=== PATIENT | male | born 1955 | race American Indian/Alaskan Native ===

== ENCOUNTER 2017-01-26 19:39 | Inpatient (IN) | payer MEDICAID ==
[2017-01-26 19:39] VITALS: BMI 25.2
--- NOTE | 2017-01-26 20:51 | C.PDOC ---
History Of Present Illness 61 year old male presents to the ED stating he is hungry and wants to avoid the snow. He admits he has been drinking for the past few days and has no physical complaints at this time. Chief Complaint (Nursing): Medical Clearance History Per: Patient History/Exam Limitations: no limitations Onset/Duration Of Symptoms: Hrs Current Symptoms Are (Timing): Still Present Severity: Mild Past Medical History Reviewed: Historical Data, Nursing Documentation, Vital Signs Vital Signs: Last Vital Signs Temp 97.6 F 01/27/17 03:56 Pulse 92 H 01/27/17 03:56 Resp 18 01/27/17 03:56 BP 106/64 01/27/17 03:56 Pulse Ox 98 01/27/17 03:56 - Medical History PMH: Depression, HTN - [facility] Procedures ALCOHOL DETOXIFICATION (07/07/15) DETOXIFICATION SERVICES FOR SUBSTANCE ABUSE TREATMENT (07/23/16) GROUP SPACE PHYSICIST FOR SUBSTANCE ABUSE TREATMENT, PSYCHOEDUCATION (03/17/16) INJECT/INFUSE NEC (04/27/14) MEASUREMENT OF ARTERIAL PRESSURE, PERIPHERAL, PERC APPROACH (03/17/16) MEASUREMENT OF CARDIAC RHYTHM, PERCUTANEOUS APPROACH (03/17/16) ULTRASONOGRAPHY OF RIGHT AND LEFT HEART, TRANSESOPHAGEAL (03/17/16) Family History: States: Unknown Family Hx - Social History Hx Tobacco Use: No Hx Alcohol Use: Yes Hx Substance Use: No (Alcoholism) - Immunization History Hx Tetanus Toxoid Vaccination: Yes Hx Influenza Vaccination: No (unknown) Hx Pneumococcal Vaccination: No (unknown) Review Of Systems Except As Marked, All Systems Reviewed And Found Negative. Constitutional: Negative for: Fever, Chills Cardiovascular: Negative for: Chest Pain Respiratory: Negative for: Shortness of Breath Physical Exam - Physical Exam Appears: Non-toxic, No Acute Distress, Other (No signs of injury) Skin: Normal Color, Warm, Dry Head: Atraumatic, Normacephalic Eye(s): bilateral: Normal Inspection Oral Mucosa: Moist Neck: Supple Chest: Symmetrical Respiratory: No Accessory Muscle Use Extremity: Normal ROM, No Deformity Neurological/Psych: Oriented x3, Other (+Intoxicated) ED Course And Treatment - Laboratory Results Result Diagrams: 01/26/17 20:55 01/26/17 20:55 Progress Note: Blood work and Urinalysis ordered and reviewed. Patient spoke to crisis care aid and states he is suicidal. Patient placed on 1:1. Disposition Discussed With : Norma Diaz Doctor Will See Patient In The: Hospital Counseled Patient/Family Regarding: Diagnosis - Disposition Disposition: HOSPITALIZED Disposition Time: 06:26 Condition: STABLE - POA Present On Arrival: None - Clinical Impression Clinical Impression: Major depression, Alcohol use disorder - Scribe Statement The provider has reviewed the documentation as recorded by the Scribe Kelechi Estrada. Provider Attestation: All medical record entries made by the Danishibe were at my direction and personally dictated by me. I have reviewed the chart and agree that the record accurately reflects my personal performance of the history, physical exam, medical decision making, and the department course for this patient. I have also personally directed, reviewed, and agree with the discharge instructions and disposition.
[2017-01-26 21:02] LABS: BASO # 0.1 K/uL (0.0-0.2); BASO % 1.2 % (0.0-2.0); EOS % 0.7 % (0.0-4.0); LYMPH # 1.5 K/uL (1.0-4.3); LYMPH % 25.7 % (20.0-40.0); MEAN CELL VOLUME 98.8 fL (80.0-94.0); MEAN CORPUSCULAR HEMOGLOBIN 32.6 pg (27.0-31.0); MEAN PLATELET VOLUME 6.6 fL (7.2-11.7); MONO # 0.4 K/uL (0.0-0.8); MONO % 7.1 % (0.0-10.0); NRBC % 0.1 % (0.0-2.0); RED CELL DISTRIBUTION WIDTH 15.8 % (11.5-14.5); WHITE BLOOD COUNT 5.9 K/uL (4.8-10.8)
[2017-01-26 21:12] LABS: CHLORIDE 99 mmol/L (98-107)
[2017-01-26 21:13] LABS: POTASSIUM 3.7 mmol/L (3.6-5.2); SODIUM 142 mmol/L (132-148)
[2017-01-26 21:15] LABS: BILIRUBIN,TOTAL 0.2 mg/dL (0.2-1.3); CARBON DIOXIDE 23 mmol/L (22-30); GFR AFRICAN-AMERICAN > 60
[2017-01-26 21:16] LABS: ALKALINE PHOSPHATASE 83 U/L (38-126); ALT/SGPT 25 U/L (21-72); AST/SGOT 40 U/L (17-59); BLOOD UREA NITROGEN 23 mg/dL (9-20); CALCIUM 8.3 mg/dl (8.6-10.4); GLUCOSE,RANDOM 111 mg/dL (75-110); TOTAL PROTEIN 7.7 g/dL (6.3-8.3)
[2017-01-26 21:36] LABS: ALCOHOL SERUM 327 mg/dl (0-10)
[2017-01-27 05:39] LABS: URINE BILIRUBIN NEGATIVE (NEGATIVE); URINE BLOOD 1+ (NEGATIVE); URINE COLOR Yellow (YELLOW); URINE GLUCOSE (UA) NORMAL (Normal); URINE KETONE NEGATIVE (NEGATIVE); URINE LEUKOCYTE ESTERASE NEG Leu/uL (Negative); URINE PROTEIN NEGATIVE (NEGATIVE); URINE UROBILINOGEN NORMAL mg/dL (0.2-1.0); WBC URINE 1 /hpf (0-5)
[2017-01-27 06:40] VITALS: O2SAT 96
[2017-01-27 07:43] LABS: RBC URINE 5 /hpf (0-3)
--- NOTE | 2017-01-27 11:27 | PCM.PSYCH ---
Initial Psychiatric Evaluation - Initial Psychiatric Evaluation Type of Admission: Voluntary Legal Status: Capacity Chief Complaint (in patient's own words): I was feeling depressed and suicidal History of Present Illness and Precipitating Events: This is a 61 years old -Dominican male who is a currently homeless and unemployed, came to the hospital because of drinking, depressed mood and suicidal ideation. Patient reports a long history of depression and alcohol abuse. Patient reports that soon after discharge from the [facility] 1 month ago, he stopped taking medications and relapsed on drinking. Patient reports of drinking 3-4 points on a daily basis. Yesterday he consumed almost 4 pints of vodka, became increasingly depressed and developed suicidal ideation, so came to the hospital to get help. Patient reports of depressed, and irritable mood. Reports feelings of hopelessness and helplessness and poor appetite. He reports withdrawal symptoms from drinking including tremors, sweating, anxiety and headaches. However he denies any auditory hallucinations, visual hallucinations or any delusions. He denies any other substance abuse. Past medical history HTN Current Medications: Active Medications Generic Name Dose Route Start Last Admin Trade Name Freq PRN Reason Stop Dose Admin Chlordiazepoxide 25 mg 01/27/17 06:53 Librium PO Q6 PRN WITHDRAWAL Chlordiazepoxide 25 mg 01/27/17 12:00 Librium PO 01/31/17 11:59 Q6 KOKO Taper Influenza Virus Vaccine 45 mcg 01/29/17 10:00 Afluria IM 01/29/17 10:01 .ONCE ONE Trazodone HCl 50 mg 01/27/17 06:53 Desyrel PO HS PRN Sleep Past Psychiatric History - Past Psychiatric History Previous Treatment History: Inpatient Pertinent Medical Hx (Current Medical&Sleep Prob, Allergies): Allergies Allergy/AdvReac Type Severity Reaction Status Date / Time No Known Allergies Allergy Verified 01/26/17 19:42 Citalopram [celeXA] 10 mg PO DAILY #14 tab 01/09/17 Folic Acid 1 mg PO DAILY #14 tab 01/09/17 Multivitamin Therapeutic Tab [Thera Tab] 1 tab PO DAILY #14 tab 01/09/17 Thiamine [Vitamin B1 Tab] 100 mg PO DAILY #14 tab 01/09/17 amLODIPine [Norvasc] 10 mg PO DAILY #7 tab 01/09/17 Review of Systems - Review of Systems All systems: reviewed and no additional remarkable complaints except - Psychiatric Psychiatric: Anxiety, Irritability, Suicidal Ideation. absent: Auditory Hallucinations, Homicidal Ideation, Mood Swings, Visual Hallucinations Mental Status Examination - Personal Presentation Personal Presentation: Looks stated age - Affect Affect: Constricted, Depressed - Motor Activity Motor Activity: Psychomotor Retardation - Reliability in Providing Information Reliability in Providing Information: Poor, due to altered mood - Speech Speech: Organized - Mood Mood: Depressed, Anxious - Formal Thought Process Formal Thought Process: No Impairment - Obsessions/Compulsions Obsessions: No Compulsions: No - Cognitive Functions Orientation: Person, Place, Situation, Time Sensorium: Alert Attention/Concentration: Attentive Abstract Thinking: [place] Estimate of Intelligence: Below average Judgement: Imparied, as evidence by: Poor judgement, Imparied, as evidence by: Lack of insight into illness - Risk Risk: Suicidal, Withdrawal, Diminished functioning - Strength & Assets Inventory Strength & Assets Inventory: Cooperative - Limitations Limitations: Living alone DSM 5 DX - DSM 5 DSM 5 Diagnosis: Major depressive disorder recurrent severe without psychotic features Alcohol use disorder severe Alcohol withdrawal - Recommended/Plan of Treatment Treatment Recommendations and Plan of Treatment: Major depressive disorder recurrent severe without psychotic features CBT Psychoeducation Supportive therapy, individual therapy Start Celexa 10 mg PO daily Start Trazodone 50 mg PO Q HS Alcohol use disorder severe CBT Psychoeducation Supportive therapy, individual therapy Use [place] for abstinence Alcohol withdrawal uncomplicated CBT Psychoeducation Supportive therapy, individual therapy Librium when necessary Start Librium taper Start folic acid/thiamine/multivitamin HTN Continue prescribed medications Monitor signs and symptoms - Smoking Cessation Smoking Cessation Initiated: No
[2017-01-28] MEDS: Multiple Vitamins Tab PO SCH (11:13)
--- NOTE | 2017-01-28 15:37 | PCM.PYCHPN ---
Psychiatric Progress Note - Psychiatric Progress Note Patient seen today, length of contact: 17 min Patient Chief Complaint: I was feeling depressed and suicidal Problems Identified/Issues Discussed: Pt seen and evaluated, and discussed with the staff. Pt remained isolated, depressed and withdrawn. He still reports depressed mood and at times feelings of hopelessness and helplessness. He denies any auditory or visual hallucinations. He still reports withdrawal symptoms from alcohol. He is taking medications and denies any side effects. Supportive therapy and psychoeducation was given. Medication Change: Yes (librium taper) Medical Record Reviewed: Yes Mental Status Examination - Cognitive Function Orientation: Person, Place, Situation, Time Memory: Intact Attention: WNL Concentration: Poor Association: WNL Fund of Knowledge: Poor - Mood Mood: Depressed, Anxious - Affect Affect: Constricted, Depressed - Speech Speech: Soft - Formal Thought Process Formal Thought Process: No Impairment - Suicidal Ideation Suicidal Ideation: No - Homicidal Ideation Homicidal Ideation: No Goal/Treatment Plan - Goal/Treatment Plan Need for Continued Stay: Discharge may exacerbated symptoms, Severe functional impairment Progress Toward Problem(s) and Goals/Treatment Plan: Major depressive disorder recurrent severe without psychotic features CBT Psychoeducation Supportive therapy, individual therapy Celexa 10 mg PO daily Trazodone 50 mg PO Q HS Alcohol use disorder severe CBT Psychoeducation Supportive therapy, individual therapy Use [place] for abstinence Alcohol withdrawal uncomplicated CBT Psychoeducation Supportive therapy, individual therapy Librium when necessary Librium taper folic acid/thiamine/multivitamin HTN Continue prescribed medications Monitor signs and symptoms - Smoking Cessation Smoking Cessation Initiated: No
[2017-01-28] MEDS ORDERED: Magnesium Hydroxide Susp 30 ml UD PO PRN (17:19)
[2017-01-28] MEDS ORDERED: Magnesium Hydroxide Susp 30 ml UD PO ONE (17:27)
[2017-01-29] MEDS ORDERED: Influenza Virus Vaccine 45 mcg/0.5 ml Syr IM ONE (10:00)
[2017-01-29] MEDS ORDERED: Pneumococcal 23-Valent Vaccine IM ONE (10:15)
[2017-01-29] MEDS: Multiple Vitamins Tab PO SCH (10:27)
--- NOTE | 2017-01-29 11:01 | PCM.PYCHPN ---
Psychiatric Progress Note - Psychiatric Progress Note Patient seen today, length of contact: 18 min Patient Chief Complaint: my belly is hurting Problems Identified/Issues Discussed: Pt seen and evaluated, and discussed with the staff. As per the staff pt started complaining of abdominal pain. He is still shaky and still experiencing alcohol withdrawal symptoms. Pt remained isolated, depressed and withdrawn. He still reports depressed mood and at times feelings of hopelessness and helplessness. He is taking medications and denies any side effects. Medical team consulted. Supportive therapy and psychoeducation was given. Medication Change: Yes (Librium taper) Medical Record Reviewed: Yes Mental Status Examination - Cognitive Function Orientation: Person, Place, Situation, Time Memory: Intact Attention: WNL Concentration: Poor Association: WNL Fund of Knowledge: Poor - Mood Mood: Depressed, Anxious - Affect Affect: Constricted, Depressed - Speech Speech: Soft - Formal Thought Process Formal Thought Process: No Impairment - Suicidal Ideation Suicidal Ideation: No - Homicidal Ideation Homicidal Ideation: No Goal/Treatment Plan - Goal/Treatment Plan Need for Continued Stay: Discharge may exacerbated symptoms, Severe functional impairment Progress Toward Problem(s) and Goals/Treatment Plan: Major depressive disorder recurrent severe without psychotic features CBT Psychoeducation Supportive therapy, individual therapy Celexa 10 mg PO daily Trazodone 50 mg PO Q HS Alcohol use disorder severe CBT Psychoeducation Supportive therapy, individual therapy Use [place] for abstinence Alcohol withdrawal uncomplicated CBT Psychoeducation Supportive therapy, individual therapy Librium when necessary Librium taper folic acid/thiamine/multivitamin HTN Continue prescribed medications Monitor signs and symptoms - Smoking Cessation Smoking Cessation Initiated: No
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
[2017-01-30] MEDS ORDERED: Lactated Ringer's 1,000 ML IV SCH (07:15)
[2017-01-30 07:37] LABS: BASO % 0.6 % (0.0-2.0); CHLORIDE 98 mmol/L (98-107); EOS # 0.1 K/uL (0.0-0.7); EOS % 2.4 % (0.0-4.0); HEMATOCRIT 32.8 % (35.0-51.0); LYMPH # 1.4 K/uL (1.0-4.3); LYMPH % 22.8 % (20.0-40.0); MEAN CELL VOLUME 97.9 fL (80.0-94.0); MEAN CORPUSCULAR HEMOGLOBIN 32.8 pg (27.0-31.0); MEAN CORPUSCULAR HGB CONC 33.5 g/dL (33.0-37.0); MEAN PLATELET VOLUME 7.2 fL (7.2-11.7); MONO # 0.5 K/uL (0.0-0.8); MONO % 8.7 % (0.0-10.0); RED CELL DISTRIBUTION WIDTH 15.1 % (11.5-14.5); SODIUM 137 mmol/L (132-148)
[2017-01-30 07:39] LABS: GFR AFRICAN-AMERICAN > 60
[2017-01-30 07:40] LABS: ALB/GLOB RATIO 0.9 (1.0-2.1); ALKALINE PHOSPHATASE 80 U/L (38-126); ALT/SGPT 37 U/L (21-72); AST/SGOT 59 U/L (17-59); BILIRUBIN,TOTAL 0.5 mg/dL (0.2-1.3); BLOOD UREA NITROGEN 20 mg/dL (9-20); CALCIUM 8.2 mg/dl (8.6-10.4); CARBON DIOXIDE 24 mmol/L (22-30); GLUCOSE,RANDOM 152 mg/dL (75-110); TOTAL PROTEIN 7.4 g/dL (6.3-8.3)
--- NOTE | 2017-01-30 08:52 | US ---
HISTORY: epigastric and RUQ abdominal pain COMPARISON: None. TECHNIQUE: Sonographic evaluation of the abdomen. FINDINGS: LIVER: Measures 16.3 cm in sagittal dimension. Echogenic liver may be seen in setting of hepatic parenchymal disease or fatty infiltration. No focal hepatic mass identified. The main portal vein appears patent with normal directional flow. No intrahepatic bile duct dilatation. GALLBLADDER: No gallstones. No gallbladder wall thickening. Negative sonographic Patrick's sign as assessed by the sole tier. COMMON BILE DUCT: Measures 3 mm. PANCREAS: Not well visualized. RIGHT KIDNEY: Measures 10.4 x 3.9 x 3.9 cm. 0.8 x 0.5 x 0.7 cm anechoic avascular focus consistent with cyst. No obstructing calculus or hydronephrosis identified. LEFT KIDNEY: Measures 10.5 x 5.7 x 4.5 cm. No obstructing calculus or hydronephrosis identified. SPLEEN: Measures approximately 8.6 cm. AORTA: Limited views appear unremarkable. IVC: Limited views appear unremarkable. OTHER FINDINGS: None. IMPRESSION: Echogenic liver may be seen in setting of hepatic parenchymal disease or fatty infiltration. Small right renal cyst.
--- NOTE | 2017-01-30 09:58 | CP.PCM.PN ---
Subjective - Date & Time of Evaluation Date of Evaluation: 01/30/17 Time of Evaluation: 09:51 - Subjective Subjective: PGY-1 note for General Surgery Pt S&E. SAL. Pt reports abdominal pain "much improved" from yesterday. He rates it as a 1-2/10 on the pain severity scale, and feels slight pain only when he presses in on the area. He reports sleeping well, tolerating diet without pain, and moving his bowels this AM. He denies N/V/D/F/C. Objective - Vital Signs/Intake and Output Vital Signs (last 24 hours): Temp Pulse Resp BP Pulse Ox 97.8 F 67 20 142/81 96 01/30/17 08:53 01/30/17 08:53 01/30/17 08:53 01/30/17 08:53 01/27/17 06:36 - Medications Medications: Current Medications Amlodipine Besylate (Norvasc) 10 mg PO DAILY [facility] Last Admin: 01/29/17 10:27 Dose: 10 mg Chlordiazepoxide (Librium) 25 mg PO Q6 PRN PRN Reason: WITHDRAWAL Last Admin: 01/28/17 11:13 Dose: 25 mg Chlordiazepoxide (Librium) 25 mg PO BID [facility] PRN Reason: Taper Stop: 01/31/17 11:59 Last Admin: 01/29/17 17:26 Dose: 25 mg Citalopram Hydrobromide (Celexa) 10 mg PO DAILY [facility] Last Admin: 01/29/17 10:26 Dose: 10 mg Clonidine HCl (Catapres) 0.1 mg PO Q4H PRN PRN Reason: Symptoms of alcohol withdrawl Famotidine (Pepcid) 20 mg PO BID [facility] Last Admin: 01/29/17 23:17 Dose: 20 mg Folic Acid (Folic Acid) 1 mg PO DAILY [facility] Last Admin: 01/29/17 10:26 Dose: 1 mg Multivitamins (Hexavitamin) 1 tab PO DAILY [facility] Last Admin: 01/29/17 10:27 Dose: 1 tab Thiamine HCl (Vitamin B1 Tab) 100 mg PO DAILY [facility] Last Admin: 01/29/17 10:26 Dose: 100 mg Trazodone HCl (Desyrel) 50 mg PO HS PRN PRN Reason: Sleep - Labs Labs: 01/30/17 07:16 01/30/17 07:16 - Constitutional Appears: Non-toxic, No Acute Distress - Head Exam Head Exam: ATRAUMATIC, NORMAL INSPECTION, NORMOCEPHALIC - Eye Exam Eye Exam: EOMI Pupil Exam: PERRL - ENT Exam ENT Exam: Mucous Membranes Moist - Respiratory Exam Respiratory Exam: NORMAL BREATHING PATTERN - Cardiovascular Exam Cardiovascular Exam: REGULAR RHYTHM, +S1, +S2 - GI/Abdominal Exam GI & Abdominal Exam: Soft, Tenderness (slight RUQ with palpation, negative russell sign), Normal Bowel Sounds. absent: Distended, Firm, Guarding - Neurological Exam Neurological Exam: Alert, Oriented x3 - Psychiatric Exam Psychiatric exam: Normal Affect, Normal Mood - Skin Skin Exam: Dry, Normal Color, Warm Assessment and Plan - Assessment and Plan (Free Text) Assessment: 61yo male with improved RUQ/epigastric abdominal pain Plan: Lipase level WNL this AM Abd US showed no gallstones no acute surgical intervention at this time Surgical team will sign off d/w Dr. Wero Frank PGY1
[2017-01-30] MEDS: Multiple Vitamins Tab PO SCH (10:35)
--- NOTE | 2017-01-30 18:25 | PCM.PYCHPN ---
Psychiatric Progress Note - Psychiatric Progress Note Patient seen today, length of contact: 16 min Patient Chief Complaint: I was feeling depressed' Problems Identified/Issues Discussed: Pt seen and evaluated, and discussed with the staff. Pt remained isolated, withdrawn and depressed. He still reports depressed mood and at times feelings of hopelessness and helplessness. He denies any auditory or visual hallucinations. He still reports withdrawal symptoms from alcohol. He is seen by medical team for abdominal pain. He is taking medications and denies any side effects. Supportive therapy and psychoeducation was given. Medication Change: Yes (increase celexa) Medical Record Reviewed: Yes Mental Status Examination - Cognitive Function Orientation: Person, Place, Situation, Time Memory: Intact Attention: WNL Concentration: Poor Association: WNL Fund of Knowledge: Poor - Mood Mood: Depressed, Anxious - Affect Affect: Constricted, Depressed - Speech Speech: Soft - Formal Thought Process Formal Thought Process: No Impairment - Suicidal Ideation Suicidal Ideation: No - Homicidal Ideation Homicidal Ideation: No Goal/Treatment Plan - Goal/Treatment Plan Need for Continued Stay: Discharge may exacerbated symptoms, Severe functional impairment Progress Toward Problem(s) and Goals/Treatment Plan: Major depressive disorder recurrent severe without psychotic features CBT Psychoeducation Supportive therapy, individual therapy Increase Celexa to 20 mg PO daily Trazodone 50 mg PO Q HS Alcohol use disorder severe CBT Psychoeducation Supportive therapy, individual therapy Use [place] for abstinence Alcohol withdrawal uncomplicated CBT Psychoeducation Supportive therapy, individual therapy Librium when necessary Librium taper Folic acid/thiamine/multivitamin HTN Continue prescribed medications Monitor signs and symptoms - Smoking Cessation Smoking Cessation Initiated: No
[2017-01-31] MEDS: Multiple Vitamins Tab PO SCH (10:28)
--- NOTE | 2017-01-31 16:50 | PCM.PYCHPN ---
Psychiatric Progress Note - Psychiatric Progress Note Patient seen today, length of contact: 15 minutes Patient Chief Complaint: I still feeling depressed Problems Identified/Issues Discussed: Patient seen. Chart reviewed. Case discussed with the staff. Issues related to illness and treatment were discussed with the patient. Patient reported still feeling depressed. Asking for help to find a place to live after discharge. Patient will speak to mental health social worker on Thursday to find a place or long-term where patient can stay after discharge from the hospital. At the time of evaluation, patient was awake alert oriented 3, had no delusions, no auditory or visual hallucinations, no suicidal ideations or homicidal ideations. Medical Problems: Gastritis Diagnostic Results: Reviewed DSM 5 Symptoms Update: Improvement with treatment Medication Change: No Medical Record Reviewed: Yes Mental Status Examination - Cognitive Function Orientation: Person, Place, Situation, Time Memory: Intact Attention: WNL Concentration: WNL Association: WNL Fund of Knowledge: [facility] Decription of patient's judgement and insights: Fair - Mood Mood: Depressed - Affect Affect: Depressed - Speech Speech: Soft - Formal Thought Process Formal Thought Process: No Impairment Psychotic Thoughts and Behaviors: None - Suicidal Ideation Suicidal Ideation: No - Homicidal Ideation Homicidal Ideation: No Goal/Treatment Plan - Goal/Treatment Plan Need for Continued Stay: Remain at risks for inpatient hospitalization, Discharge may exacerbated symptoms, Severe functional impairment Progress Toward Problem(s) and Goals/Treatment Plan: Some improvement with treatment Patient education Supportive therapy Continue treatment as before Patient will go to [facility] after discharge Estimated Date of D/C: 02/02/17 - Smoking Cessation Smoking Cessation Initiated: No
[2017-02-01 07:43] VITALS: BP 139/80; PULSE 71; RESP 18; TEMP 97
[2017-02-01 07:47] LABS: CHLORIDE 102 mmol/L (98-107); POTASSIUM 3.7 mmol/L (3.6-5.2); SODIUM 138 mmol/L (132-148)
[2017-02-01 07:49] LABS: ALB/GLOB RATIO 0.8 (1.0-2.1); ALKALINE PHOSPHATASE 73 U/L (38-126); AST/SGOT 63 U/L (17-59); BILIRUBIN,TOTAL 0.5 mg/dL (0.2-1.3); CARBON DIOXIDE 26 mmol/L (22-30); GFR AFRICAN-AMERICAN > 60; TOTAL PROTEIN 7.2 g/dL (6.3-8.3)
[2017-02-01 07:50] LABS: ALT/SGPT 67 U/L (21-72); BLOOD UREA NITROGEN 18 mg/dL (9-20); CALCIUM 8.3 mg/dl (8.6-10.4); GLUCOSE,RANDOM 88 mg/dL (75-110)
[2017-02-01] MEDS: Multiple Vitamins Tab PO SCH (09:11)
--- NOTE | 2017-02-01 18:46 | PCM.PYCHDC ---
Mental Status Examination - Mental Status Examination Orientation: Person, Place, Situation, Time Memory: Intact Mood: Neutral Affect: Other (Appropriate) Speech: Appropriate Attention: WNL Concentration: WNL Association: WNL Fund of Knowledge: WNL Formal Thought Process: No Impairment Description of patient's judgement and insight: Fair Psychotic Thoughts and Behaviors: None Suicidal Ideation: No Current Homicidal Ideation?: No Discharge Summary - Discharge Note Reason for Hospitalization: Alcohol use and depression Psychiatric History (includes Medical, Family, Personal Hx): Alcohol use disorder, major depressive disorder, hypertension Laboratory Data: Abnormal Lab Results 02/01/17 07:31 Sodium 138 Potassium 3.7 Chloride 102 Carbon Dioxide 26 Anion Gap 14 BUN 18 Creatinine 1.1 Est GFR ( Amer) > 60 Est GFR (Non-Af Amer) > 60 Random Glucose 88 Calcium 8.3 L Total Bilirubin 0.5 AST 63 H ALT 67 Alkaline Phosphatase 73 Total Protein 7.2 Albumin 3.2 L Globulin 4.0 H Albumin/Globulin Ratio 0.8 L Consultations:: List each consultation separately and include: 1. Reason for request. 2. Findings. 3. Follow-up Consultations: Reviewed Summary of Hospital Course include:: 1. Description of specific treatment plan utilized for patients during their course of treatmen. 2. Summarize the time- course for resolution of acute symptoms and/or regressed behaviors. 3. Describe issues identified and worked on during hospitalization. 4. Describe medication utilized. 5. Describe medical problems identified and treated. 6. Reassessment of suicide risk Summary of Hospital Course: This is a 61 years old -[place] male who is a currently homeless and unemployed, came to the hospital because of drinking, depressed mood and suicidal ideation. Patient reports a long history of depression and alcohol abuse. Patient reports that soon after discharge from the [facility] 1 month ago, he stopped taking medications and relapsed on drinking. Patient reports of drinking 3-4 points on a daily basis. Yesterday he consumed almost 4 pints of vodka, became increasingly depressed and developed suicidal ideation, so came to the hospital to get help. Patient reports of depressed, and irritable mood. Reports feelings of hopelessness and helplessness and poor appetite. He reports withdrawal symptoms from drinking including tremors, sweating, anxiety and headaches. However he denies any auditory hallucinations, visual hallucinations or any delusions. He denies any other substance abuse. During his stay in the hospital patient was treated with Librium and other when necessary medications for alcohol withdrawal symptoms. He was also started on Celexa. During his stay he was seen by medical because of abdominal pain and started on Protonix for his gastritis which was related to alcohol drinking. With all above treatment patient started feeling better. No withdrawal symptoms. Today patient was stable and ready for discharge. At the time of evaluation and discharge, patient was awake alert oriented 3, had no delusions , no auditory or visual hallucinations, no suicidal ideations or homicidal ideations, patient was discharged in a stable condition. - Final Diagnosis (DSM 5) Condition upon Discharge: STABLE Disposition: HOME/ ROUTINE Follow-up Treatment Plan: IOP Prescriptions/Medication Reconciliation: Famotidine [Pepcid] 20 mg PO BID #60 tab Citalopram [celeXA] 20 mg PO DAILY #30 tab - Smoking Cessation Smoking Cessation Medication prescribed: No Reason for not providing: Not smoking - Antipsychotic Medications Pt discharged on 2 or more routine antipsychotic medications: No
== END 2017-02-01 14:19 | disposition home or self-care (01) | DRG 430 ==
LOC: C.ER 19:39 → C.9OBSV 21:09 → OBSVTOIN 01-27 06:27 → C.5E 01-27 06:36
PROVIDERS: ADMIT Emergency Medicine; ATTEND Psychiatry & Neurology Psychiatry
PROC: HZ2ZZZZ Detoxification Services for Substance Abuse Treatment (ICD-10-PCS; principal; 2017-01-27)
PROC: HZ52ZZZ Individual Psychotherapy for Substance Abuse Treatment, Cognitive-Behavioral (ICD-10-PCS; 2017-01-27)
PROC: HZ59ZZZ Individual Psychotherapy for Substance Abuse Treatment, Supportive (ICD-10-PCS; 2017-01-27)
PROC: HZ56ZZZ Individual Psychotherapy for Substance Abuse Treatment, Psychoeducation (ICD-10-PCS; 2017-01-27)
DX: F33.2 Major depressive disorder, recurrent severe without psychotic features (principal); R45.851 Suicidal ideations; N28.1 Cyst of kidney, acquired; F10.239 Alcohol dependence with withdrawal, unspecified; I10 Essential (primary) hypertension; Z59.0 Homelessness; Z79.899 Other long term (current) drug therapy; Z87.891 Personal history of nicotine dependence; K29.20 Alcoholic gastritis without bleeding; F41.9 Anxiety disorder, unspecified

== ENCOUNTER 2017-02-18 17:00 | Inpatient (IN) | payer MEDICAID ==
[2017-02-18 17:01] VITALS: BMI 25.2
--- NOTE | 2017-02-18 18:01 | C.PDOC ---
History Of Present Illness <Sarah Alvarado - Last Filed: 02/18/17 19:14> <Allie Ya - Last Filed: 02/19/17 05:51> Patient is a 61 year old male who presents to the ER intoxicated stating he is suicidal. Patient has a history of ETOH use and psychiatric problems. Patient Admits to using ETOH today and is not taking psychiatric medications. Currently has no suicide plans and has no other complaints at this time. (Sarah Alvarado) History Per: Patient Onset/Duration Of Symptoms: Hrs Current Symptoms Are (Timing): Still Present Modifying Factor(s): Alcohol Associated Symptoms: Suicidal Thoughts. denies: Suicidal Plan <Sarah Alvarado - Last Filed: 02/18/17 19:14> <Allie Ya - Last Filed: 02/19/17 05:51> Time Seen by Provider: 02/18/17 17:09 Chief Complaint (Nursing): Substance Abuse Past Medical History Reviewed: Historical Data, Nursing Documentation, Vital Signs - Medical History PMH: Depression, HTN Family History: States: Unknown Family Hx - Social History Hx Tobacco Use: No Hx Alcohol Use: Yes Hx Substance Use: Yes - Immunization History Hx Tetanus Toxoid Vaccination: Yes Hx Influenza Vaccination: No (unknown) Hx Pneumococcal Vaccination: No (unknown) <Sarah Alvarado - Last Filed: 02/18/17 19:14> Vital Signs: Last Vital Signs Temp Pulse 97 H 02/18/17 20:36 Resp 18 02/18/17 20:36 BP 139/79 02/18/17 20:36 Pulse Ox 98 02/18/17 20:36 - [facility] Procedures ALCOHOL DETOXIFICATION (07/07/15) DETOXIFICATION SERVICES FOR SUBSTANCE ABUSE TREATMENT (01/27/17) GROUP NANNY/HOUSEHOLD MANAGER FOR SUBSTANCE ABUSE TREATMENT, PSYCHOEDUCATION (03/17/16) INDIV PSYCHOTHERAPY FOR SUBSTANCE ABUSE TREATMENT, SUPPORT (01/27/17) INDIV PSYCHOTHERAPY FOR SUBSTANCE ABUSE, COGNITIV BEHAVIORAL (01/27/17) INDIV PSYCHOTHERAPY FOR SUBSTANCE ABUSE, PSYCHOEDUCATION (01/27/17) INJECT/INFUSE NEC (04/27/14) MEASUREMENT OF ARTERIAL PRESSURE, PERIPHERAL, PERC APPROACH (03/17/16) MEASUREMENT OF CARDIAC RHYTHM, PERCUTANEOUS APPROACH (03/17/16) ULTRASONOGRAPHY OF RIGHT AND LEFT HEART, TRANSESOPHAGEAL (03/17/16) Review Of Systems Constitutional: Negative for: Fever, Chills Cardiovascular: Negative for: Palpitations Respiratory: Negative for: Shortness of Breath Gastrointestinal: Negative for: Nausea, Vomiting Psych: Positive for: Suicidal ideation <Sarah Alvarado - Last Filed: 02/18/17 19:14> Physical Exam - Physical Exam Appears: Well, Non-toxic Skin: Normal Color, Warm, Dry Head: Atraumatic, Normacephalic Cardiovascular: Rhythm Regular Respiratory: Normal Breath Sounds, No Rales, No Rhonchi, No Wheezing Gastrointestinal/Abdominal: Soft, No Tenderness Neurological/Psych: Oriented x3, Normal Speech, Normal Cognition <Sarah Alvarado - Last Filed: 02/18/17 19:14> ED Course And Treatment - Laboratory Results Result Diagrams: 02/18/17 18:35 02/18/17 18:35 Progress Note: Blood work ordered and crisis notified. <Sarah Alvarado - Last Filed: 02/18/17 19:14> - Laboratory Results Result Diagrams: 02/18/17 18:35 02/18/17 18:35 <Allie Ya - Last Filed: 02/19/17 05:51> Medical Decision Making <Sarah Alvarado - Last Filed: 02/18/17 19:14> <Allie Ya - Last Filed: 02/19/17 05:51> Medical Decision Making: pt seen by crisis team for evaluation, await utox and bal. (Sarah Alvarado) ED OBSERVATION <Sarah Alvarado - Last Filed: 02/18/17 19:14> Date of observation admission: 02/18/17 Time of observation admission: 19:00 <Allie Ya - Last Filed: 02/19/17 05:51> - Observation admission statement Patient is being placed in observation because:: ETOH INTOX, SUICIDAL IDEATION (Allie Ya) - Goals of Observation Goals of observation are:: SOBRIETY, MED CLEAR, PSYCH EVAL (Allie Ya) Disposition - Disposition Disposition Time: 19:12 <Sarah Alvarado - Last Filed: 02/18/17 19:14> - Disposition Disposition Time: 05:50 - POA Present On Arrival: None <Allie Ya - Last Filed: 02/19/17 05:51> - Disposition Disposition: HOSPITALIZED Condition: STABLE - Clinical Impression Clinical Impression: Alcohol intoxication, Suicidal ideation, Major depression - Scribe Statement The provider has reviewed the documentation as recorded by the Scribe <Sarah Alvarado - Last Filed: 02/18/17 19:14> <FeltonAllie - Last Filed: 02/19/17 05:51> - Scribe Statement [place] All medical record entries made by the Scribe were at my direction and personally dictated by me. I have reviewed the chart and agree that the record accurately reflects my personal performance of the history, physical exam, medical decision making, and the department course for this patient. I have also personally directed, reviewed, and agree with the discharge instructions and disposition. (Sarah Alvarado) Physician Patient Turnover Patient Signed Over To: Allie Ya Handoff Comments: await med clearance, need utox and bal, and final crisis consult <Sarah Alvarado - Last Filed: 02/18/17 19:14> Decision To Admit <Sarah Alvarado - Last Filed: 02/18/17 19:14> - Pt Status Changed To: Hospital Disposition Of: Inpatient - Admit Certification Admit to Inpatient:: After my assessment, the patient will require hospitalization for at least two midnights. This is because of the severity of symptoms shown, intensity of services needed, and/or the medical risk in this patient being treated as an outpatient. - InPatient: Physician Admission Certification: I certify that this patient requires 2 or more midnights of care for the following reason:: see note - . Bed Request Type: Psychiatry Admitting Physician: Zayda Chavez <Allie Ya - Last Filed: 02/19/17 05:51> - . Patient Diagnosis: Alcohol intoxication, Suicidal ideation, Major depression
[2017-02-18 18:35] LABS: RBC URINE 1 /hpf (0-3); URINE BILIRUBIN NEGATIVE (NEGATIVE); URINE BLOOD NEGATIVE (NEGATIVE); URINE COLOR Yellow (YELLOW); URINE GLUCOSE (UA) NORMAL (Normal); URINE KETONE NEGATIVE (NEGATIVE); URINE LEUKOCYTE ESTERASE NEG Leu/uL (Negative); URINE PROTEIN NEGATIVE (NEGATIVE); URINE UROBILINOGEN NORMAL mg/dL (0.2-1.0); WBC URINE < 1 /hpf (0-5)
[2017-02-18 18:43] LABS: BASO # 0.1 K/uL (0.0-0.2); BASO % 1.3 % (0.0-2.0); EOS # 0.1 K/uL (0.0-0.7); EOS % 1.7 % (0.0-4.0); HEMATOCRIT 32.9 % (35.0-51.0); LYMPH # 1.8 K/uL (1.0-4.3); MEAN CELL VOLUME 96.3 fL (80.0-94.0); MEAN CORPUSCULAR HEMOGLOBIN 32.7 pg (27.0-31.0); MEAN CORPUSCULAR HGB CONC 33.9 g/dL (33.0-37.0); MEAN PLATELET VOLUME 6.2 fL (7.2-11.7); MONO # 0.4 K/uL (0.0-0.8); MONO % 7.5 % (0.0-10.0); RED CELL DISTRIBUTION WIDTH 14.7 % (11.5-14.5); WHITE BLOOD COUNT 5.4 K/uL (4.8-10.8)
[2017-02-18 18:52] LABS: CHLORIDE 105 mmol/L (98-107); POTASSIUM 3.9 mmol/L (3.6-5.2); SODIUM 148 mmol/L (132-148)
[2017-02-18 18:54] LABS: ALKALINE PHOSPHATASE 87 U/L (38-126); AST/SGOT 28 U/L (17-59); BILIRUBIN,TOTAL 0.1 mg/dL (0.2-1.3); CARBON DIOXIDE 25 mmol/L (22-30); GFR AFRICAN-AMERICAN > 60
[2017-02-18 18:55] LABS: ALT/SGPT 20 U/L (21-72); BLOOD UREA NITROGEN 22 mg/dL (9-20); CALCIUM 7.8 mg/dl (8.6-10.4); GLUCOSE,RANDOM 102 mg/dL (75-110)
[2017-02-18 19:10] LABS: ALCOHOL SERUM 324 mg/dl (0-10)
[2017-02-19 11:34] VITALS: O2SAT 97
--- NOTE | 2017-02-19 12:37 | PCM.PSYCH ---
Initial Psychiatric Evaluation - Initial Psychiatric Evaluation Type of Admission: Voluntary Legal Status: Capacity Chief Complaint (in patient's own words): I was feeling depressed History of Present Illness and Precipitating Events: This is a 61 years old male, who is homeless and unemployed, who has a long history of depression and drinking, came to the hospital with depressed mood and suicidal ideation. Patient is well known to the [facility]. Patient was just discharged from [facility] last month. Patient states that he was living at a jail in [place], and that jail closed down 2 weeks ago. As a result, he became homeless and started drinking heavily, almost 4-5 pints on a daily basis. Yesterday he consumed almost 5 pints of vodka became increasingly depressed and developed suicidal ideation so he came to the hospital to get help. His blood alcohol level was 324, when he came to the hospital. Patient states depressed mood, and feelings of hopelessness and helplessness. He reports withdrawal symptoms from drinking including shakes, tremors, anxiety and headaches. He also states poor sleep and poor appetite. However he denies any auditory or visual hallucinations or any psychotic or manic symptoms. He denies any substance abuse. Medical history: HTN Past Psychiatric History - Past Psychiatric History Previous Treatment History: Inpatient Pertinent Medical Hx (Current Medical&Sleep Prob, Allergies): Allergies Allergy/AdvReac Type Severity Reaction Status Date / Time No Known Allergies Allergy Verified 01/26/17 19:42 Citalopram [celeXA] 10 mg PO DAILY #14 tab 01/09/17 Folic Acid 1 mg PO DAILY #14 tab 01/09/17 Multivitamin Therapeutic Tab [Thera Tab] 1 tab PO DAILY #14 tab 01/09/17 Thiamine [Vitamin B1 Tab] 100 mg PO DAILY #14 tab 01/09/17 amLODIPine [Norvasc] 10 mg PO DAILY #7 tab 01/09/17 Citalopram [celeXA] 20 mg PO DAILY #30 tab 02/01/17 Famotidine [Pepcid] 20 mg PO BID #60 tab 02/01/17 Review of Systems - Review of Systems All systems: reviewed and no additional remarkable complaints except - Psychiatric Psychiatric: Anxiety, Depression, Irritability, Suicidal Ideation Mental Status Examination - Personal Presentation Personal Presentation: Looks stated age - Affect Affect: Constricted, Depressed - Motor Activity Motor Activity: Calm - Reliability in Providing Information Reliability in Providing Information: Good - Speech Speech: Organized - Mood Mood: Depressed, Anxious - Formal Thought Process Formal Thought Process: No Impairment - Obsessions/Compulsions Obsessions: No Compulsions: No - Cognitive Functions Orientation: Person, Place, Situation, Time Sensorium: Alert Attention/Concentration: Attentive Abstract Thinking: [place] Estimate of Intelligence: Below average Judgement: Imparied, as evidence by: Poor judgement, Imparied, as evidence by: Lack of insight into illness - Risk Risk: Suicidal, Withdrawal, Diminished functioning - Strength & Assets Inventory Strength & Assets Inventory: Cooperative - Limitations Limitations: Living alone DSM 5 DX - DSM 5 DSM 5 Diagnosis: Major depressive disorder recurrent severe without psychotic features Alcohol use disorder severe Alcohol withdrawal uncomplicated - Recommended/Plan of Treatment Treatment Recommendations and Plan of Treatment: Major depressive disorder recurrent severe without psychotic features CBT Psychoeducation Supportive therapy, individual therapy Zoloft 50 mg daily Trazodone 50 mg PO Q HS Alcohol use disorder severe CBT Psychoeducation Supportive therapy, individual therapy Use [place] for abstinence Alcohol withdrawal uncomplicated CBT Psychoeducation Supportive therapy, individual therapy Librium when necessary Start Librium taper Start folic acid/thiamine/multivitamin HTN Continue prescribed medications Monitor signs and symptoms - Smoking Cessation Smoking Cessation Initiated: No
[2017-02-19] MEDS: Multiple Vitamins Tab PO SCH (13:08)
--- NOTE | 2017-02-20 09:43 | PCM.PYCHPN ---
Psychiatric Progress Note - Psychiatric Progress Note Patient seen today, length of contact: 15 min Patient Chief Complaint: I'm experiencing withdrawal symptoms Problems Identified/Issues Discussed: Patient seen and evaluated, chart reviewed and discussed with the nurse. The patient reports depressed mood and remained isolated, withdrawn and confined to his room. He reports withdrawal symptoms including shakes, anxiety, headaches and sweating. He is taking withdrawal medications and denies any side effects. Supportive therapy and psychoeducation were given. Medication Change: Yes (Librium taper) Medical Record Reviewed: Yes Mental Status Examination - Cognitive Function Orientation: Person, Place, Situation, Time Memory: Intact Attention: Poor Concentration: Poor Association: WNL Fund of Knowledge: Poor - Mood Mood: Depressed, Anxious - Affect Affect: Constricted, Depressed - Speech Speech: Appropriate - Formal Thought Process Formal Thought Process: No Impairment - Suicidal Ideation Suicidal Ideation: No - Homicidal Ideation Homicidal Ideation: No Goal/Treatment Plan - Goal/Treatment Plan Need for Continued Stay: Discharge may exacerbated symptoms, Severe functional impairment Progress Toward Problem(s) and Goals/Treatment Plan: Major depressive disorder recurrent severe without psychotic features CBT Psychoeducation Supportive therapy, individual therapy Zoloft 50 mg daily Trazodone 50 mg PO Q HS Alcohol use disorder severe CBT Psychoeducation Supportive therapy, individual therapy Use [place] for abstinence Alcohol withdrawal uncomplicated CBT Psychoeducation Supportive therapy, individual therapy Librium when necessary Librium taper Folic acid/thiamine/multivitamin HTN Continue prescribed medications Monitor signs and symptoms - Smoking Cessation Smoking Cessation Initiated: No
[2017-02-20] MEDS: Multiple Vitamins Tab PO SCH (10:31)
[2017-02-21] MEDS: Multiple Vitamins Tab PO SCH (09:41)
[2017-02-21] MEDS ORDERED: Pneumococcal 23-Valent Vaccine IM ONE (10:00)
--- NOTE | 2017-02-21 11:29 | PCM.PYCHPN ---
Psychiatric Progress Note - Psychiatric Progress Note Patient seen today, length of contact: 16 min Patient Chief Complaint: I was feeling depressed Problems Identified/Issues Discussed: Patient seen and evaluated, chart reviewed and discussed with the nurse. as per staff patient remained confined to his room. He appeared depressed, isolated and withdrawn. Patient still reports withdrawal symptoms including anxiety, shakes, sweating and headaches. He is taking withdrawal medications and denies any side effects. Supportive therapy and psychoeducation were given. Medication Change: Yes (alcohol withdrawal medications) Medical Record Reviewed: Yes Mental Status Examination - Cognitive Function Orientation: Person, Place, Situation, Time Memory: Intact Attention: Poor Concentration: Poor Association: WNL Fund of Knowledge: Poor - Mood Mood: Depressed, Anxious - Affect Affect: Constricted, Depressed - Speech Speech: Soft - Formal Thought Process Formal Thought Process: No Impairment - Suicidal Ideation Suicidal Ideation: No - Homicidal Ideation Homicidal Ideation: No Goal/Treatment Plan - Goal/Treatment Plan Need for Continued Stay: Discharge may exacerbated symptoms, Severe functional impairment Progress Toward Problem(s) and Goals/Treatment Plan: Major depressive disorder recurrent severe without psychotic features CBT Psychoeducation Supportive therapy, individual therapy Zoloft 50 mg daily Trazodone 50 mg PO Q HS Alcohol use disorder severe CBT Psychoeducation Supportive therapy, individual therapy Use [place] for abstinence Alcohol withdrawal uncomplicated CBT Psychoeducation Supportive therapy, individual therapy Librium when necessary Librium taper Folic acid/thiamine/multivitamin HTN Continue prescribed medications Monitor signs and symptoms - Smoking Cessation Smoking Cessation Initiated: No
[2017-02-22] MEDS: Multiple Vitamins Tab PO SCH (09:37)
--- NOTE | 2017-02-22 16:14 | PCM.PYCHPN ---
Psychiatric Progress Note - Psychiatric Progress Note Patient seen today, length of contact: 17 min Patient Chief Complaint: I was feeling little better Problems Identified/Issues Discussed: Patient seen and evaluated, chart reviewed and discussed with the nurse. patient reports improvement in his mood and appears less depressed. He denies any feelings of hopelessness and helplessness and reports improvement in sleep and appetite. Reports improvement in his withdrawal symptoms. Supportive therapy and psychoeducation were given. Medication Change: Yes (withdrawal medications) Medical Record Reviewed: Yes Mental Status Examination - Cognitive Function Orientation: Person, Place, Situation, Time Memory: Intact Attention: WNL Concentration: WNL Association: WNL Fund of Knowledge: Poor - Mood Mood: Depressed, Anxious - Affect Affect: Constricted, Depressed - Speech Speech: Soft - Formal Thought Process Formal Thought Process: No Impairment - Suicidal Ideation Suicidal Ideation: No - Homicidal Ideation Homicidal Ideation: No Goal/Treatment Plan - Goal/Treatment Plan Need for Continued Stay: Discharge may exacerbated symptoms, Severe functional impairment Progress Toward Problem(s) and Goals/Treatment Plan: Major depressive disorder recurrent severe without psychotic features CBT Psychoeducation Supportive therapy, individual therapy Zoloft 50 mg daily Trazodone 50 mg PO Q HS Alcohol use disorder severe CBT Psychoeducation Supportive therapy, individual therapy Use [place] for abstinence Alcohol withdrawal uncomplicated CBT Psychoeducation Supportive therapy, individual therapy Librium when necessary Librium taper Folic acid/thiamine/multivitamin HTN Continue prescribed medications Monitor signs and symptoms - Smoking Cessation Smoking Cessation Initiated: No
[2017-02-23] MEDS: Multiple Vitamins Tab PO SCH (09:55)
--- NOTE | 2017-02-23 15:22 | PCM.PYCHPN ---
Psychiatric Progress Note - Psychiatric Progress Note Patient seen today, length of contact: 17 min Patient Chief Complaint: I was feeling much better Problems Identified/Issues Discussed: Patient seen and evaluated, chart reviewed and discussed with the nurse. Today patient reports improvement in his mood and withdrawal symptoms. He reports improvement in sleep and appetite. He denies any feelings of hopelessness and helplessness and denies any suicidal ideation. Supportive therapy and psychoeducation were given. Medication Change: Yes (increase Zoloft) Medical Record Reviewed: Yes Mental Status Examination - Cognitive Function Orientation: Person, Place, Situation, Time Memory: Intact Attention: WNL Concentration: WNL Association: WN Fund of Knowledge: WN - Mood Mood: Depressed, Anxious - Affect Affect: Constricted, Depressed - Speech Speech: Soft - Formal Thought Process Formal Thought Process: No Impairment - Suicidal Ideation Suicidal Ideation: No - Homicidal Ideation Homicidal Ideation: No Goal/Treatment Plan - Goal/Treatment Plan Need for Continued Stay: Discharge may exacerbated symptoms, Severe functional impairment Progress Toward Problem(s) and Goals/Treatment Plan: Major depressive disorder recurrent severe without psychotic features CBT Psychoeducation Supportive therapy, individual therapy Zoloft 100 mg daily Trazodone 50 mg PO Q HS Alcohol use disorder severe CBT Psychoeducation Supportive therapy, individual therapy Use [place] for abstinence Alcohol withdrawal uncomplicated CBT Psychoeducation Supportive therapy, individual therapy Librium when necessary Librium taper Folic acid/thiamine/multivitamin HTN Continue prescribed medications Monitor signs and symptoms - Smoking Cessation Smoking Cessation Initiated: No
[2017-02-24] MEDS: Multiple Vitamins Tab PO SCH (09:33)
--- NOTE | 2017-02-24 09:41 | PCM.PYCHDC ---
Mental Status Examination - Mental Status Examination Orientation: Person, Place, Situation, Time Memory: Intact Mood: Euphoric Affect: Constricted Speech: Soft Attention: WNL Concentration: WNL Association: WNL Fund of Knowledge: WNL Formal Thought Process: No Impairment Description of patient's judgement and insight: good, fair Psychotic Thoughts and Behaviors: denies any AVH Suicidal Ideation: No Current Homicidal Ideation?: No Discharge Summary - Discharge Note Reason for Hospitalization: This is a 61 years old male, who is homeless and unemployed, who has a long history of depression and drinking, came to the hospital with depressed mood and suicidal ideation. Patient is well known to the [facility]. Patient was just discharged from [facility] last month. Patient states that he was living at a longterm in [place], and that longterm closed down 2 weeks ago. As a result, he became homeless and started drinking heavily, almost 4-5 pints on a daily basis. Yesterday he consumed almost 5 pints of vodka became increasingly depressed and developed suicidal ideation so he came to the hospital to get help. His blood alcohol level was 324, when he came to the hospital. Patient states depressed mood, and feelings of hopelessness and helplessness. He reports withdrawal symptoms from drinking including shakes, tremors, anxiety and headaches. He also states poor sleep and poor appetite. However he denies any auditory or visual hallucinations or any psychotic or manic symptoms. He denies any substance abuse. Consultations:: List each consultation separately and include: 1. Reason for request. 2. Findings. 3. Follow-up Summary of Hospital Course include:: 1. Description of specific treatment plan utilized for patients during their course of treatmen. 2. Summarize the time- course for resolution of acute symptoms and/or regressed behaviors. 3. Describe issues identified and worked on during hospitalization. 4. Describe medication utilized. 5. Describe medical problems identified and treated. 6. Reassessment of suicide risk Summary of Hospital Course: During the course of his stay, patient (pt) started progressively improving and he no longer remained irritable, depressed, and suicidal. His mood was improved and he started attending groups and meetings and started socializing. Patient denied any feelings of hopelessness, helplessness, and worthlessness, denied any problem with the sleep or appetite, denied suicidal ideation or homicidal ideation. Pt denied any auditory or visual hallucinations. Some changes were made in his current medications and patient was discharged on following medications. He tolerated these medications very well and denied any side effects. - Final Diagnosis (DSM 5) Condition upon Discharge: STABLE DSM 5: Major depressive disorder recurrent severe without psychotic features Alcohol use disorder severe Alcohol withdrawal uncomplicated Disposition: HOME/ ROUTINE Follow-up Treatment Plan: Education: Pt was educated and counseled about the risks and benefits of taking and not taking medications. Pt was educated and counseled about the risks of drinking and abusing drugs. Pt was educated and counseled to go to the ER or call 911 if pt develop suicidal ideation or homicidal ideation, worsening of symptoms or severe side effects of the meds. Prescriptions/Medication Reconciliation: traZODone [Desyrel] 50 mg PO HS #30 tab Sertraline [Zoloft] 100 mg PO DAILY #30 tab - Smoking Cessation Smoking Cessation Medication prescribed: No - Antipsychotic Medications Pt discharged on 2 or more routine antipsychotic medications: No
[2017-02-24 10:20] VITALS: BP 169/82; PULSE 66; RESP 20; TEMP 98
== END 2017-02-24 11:20 | disposition home or self-care (01) | DRG 430 ==
LOC: C.ER 17:00 → C.9E 02-19 05:51 → C.5E 02-19 11:51
PROVIDERS: ADMIT Psychiatry & Neurology Psychiatry; ATTEND Psychiatry & Neurology Psychiatry
PROC: GZ3ZZZZ Medication Management (ICD-10-PCS; principal; 2017-02-19)
PROC: GZ56ZZZ Individual Psychotherapy, Supportive (ICD-10-PCS; 2017-02-19)
PROC: HZ59ZZZ Individual Psychotherapy for Substance Abuse Treatment, Supportive (ICD-10-PCS; 2017-02-19)
DX: F33.2 Major depressive disorder, recurrent severe without psychotic features (principal); F10.239 Alcohol dependence with withdrawal, unspecified; R45.851 Suicidal ideations; I10 Essential (primary) hypertension; Z59.0 Homelessness

== ENCOUNTER 2017-02-26 03:10 | Emergency (ER) | payer MEDICAID ==
[2017-02-26 03:12] VITALS: BMI 25.2
[2017-02-26 03:20] VITALS: BP 134/88; PULSE 64; RESP 20; TEMP 98.8; O2SAT 97
--- NOTE | 2017-02-26 03:22 | C.PDOC ---
History Of Present Illness Patient presents to ER with acute ETOH intoxication, is looking for a place to spend the night. Denies any complaints at this time. Time Seen by Provider: 02/26/17 03:21 Chief Complaint (Nursing): Substance Abuse History Per: Patient History/Exam Limitations: no limitations Onset/Duration Of Symptoms: Hrs Current Symptoms Are (Timing): Still Present Suicide/Self Injury Attempted (Context): None Modifying Factor(s): Alcohol Past Medical History Reviewed: Historical Data, Nursing Documentation, Vital Signs Vital Signs: Last Vital Signs Temp 98.8 F 02/26/17 03:16 Pulse 64 02/26/17 03:16 Resp 20 02/26/17 03:16 BP 134/88 02/26/17 03:16 Pulse Ox 97 02/26/17 04:57 - Medical History PMH: Anxiety, Depression, HTN Surgical History: No Surg Hx - [facility] Procedures ALCOHOL DETOXIFICATION (07/07/15) DETOXIFICATION SERVICES FOR SUBSTANCE ABUSE TREATMENT (01/27/17) GROUP PRODUCT DEVELOPMENT SPECIALIST FOR SUBSTANCE ABUSE TREATMENT, PSYCHOEDUCATION (03/17/16) INDIV PSYCHOTHERAPY FOR SUBSTANCE ABUSE TREATMENT, SUPPORT (02/19/17) INDIV PSYCHOTHERAPY FOR SUBSTANCE ABUSE, COGNITIV BEHAVIORAL (01/27/17) INDIV PSYCHOTHERAPY FOR SUBSTANCE ABUSE, PSYCHOEDUCATION (01/27/17) INDIVIDUAL PSYCHOTHERAPY, SUPPORTIVE (02/19/17) INJECT/INFUSE NEC (04/27/14) MEASUREMENT OF ARTERIAL PRESSURE, PERIPHERAL, PERC APPROACH (03/17/16) MEASUREMENT OF CARDIAC RHYTHM, PERCUTANEOUS APPROACH (03/17/16) MEDICATION MANAGEMENT (02/19/17) ULTRASONOGRAPHY OF RIGHT AND LEFT HEART, TRANSESOPHAGEAL (03/17/16) Family History: States: No Known Family Hx - Social History Hx Tobacco Use: No Hx Alcohol Use: Yes (324) Hx Substance Use: Yes - Immunization History Hx Tetanus Toxoid Vaccination: Yes Hx Influenza Vaccination: No (unknown) Hx Pneumococcal Vaccination: No (unknown) Review Of Systems Constitutional: Negative for: Fever, Chills Cardiovascular: Negative for: Palpitations Respiratory: Negative for: Cough, Shortness of Breath Gastrointestinal: Negative for: Nausea, Vomiting Physical Exam - Physical Exam Appears: Well, Non-toxic, Other (ETOH on breath) Skin: Warm, Dry Oral Mucosa: Moist Chest: Symmetrical Cardiovascular: Rhythm Regular Respiratory: No Rales, No Rhonchi, No Wheezing Gastrointestinal/Abdominal: Soft, No Tenderness Neurological/Psych: Oriented x3 ED Course And Treatment O2 Sat by Pulse Oximetry: 97 (Room air) Pulse Ox Interpretation: Normal ED OBSERVATION Date of observation admission: 02/26/17 Time of observation admission: 03:25 - Observation admission statement Patient is being placed in observation because:: Acute ETOH intoxication - Goals of Observation Goals of observation are:: Sobriety - Progress Note Progress Note: 02/26/17 03:26 vitals stable, no complaints 02/26/17 05:28 no complaints Disposition Counseled Patient/Family Regarding: Studies Performed, Diagnosis - Disposition Disposition Time: 03:22 Condition: UNKNOWN - Clinical Impression Clinical Impression: Alcohol abuse, Alcohol intoxication - Scribe Statement The provider has reviewed the documentation as recorded by the Scribe Mike [place] All medical record entries made by the Danishibe were at my direction and personally dictated by me. I have reviewed the chart and agree that the record accurately reflects my personal performance of the history, physical exam, medical decision making, and the department course for this patient. I have also personally directed, reviewed, and agree with the discharge instructions and disposition. Physician Patient Turnover Patient Signed Over To: Matteo Ramsey DO Handoff Comments: pending sobriety and dc
== END 2017-02-26 06:58 | disposition home or self-care (01) ==
LOC: C.ER 03:10
DX: F10.120 Alcohol abuse with intoxication, uncomplicated (principal); Y90.9 Presence of alcohol in blood, level not specified

== ENCOUNTER 2017-03-02 18:40 | Observation (INO) | payer MEDICAID ==
[2017-03-02 18:41] VITALS: BMI 25.2
--- NOTE | 2017-03-02 20:36 | C.PDOC ---
History Of Present Illness Patient is brought to the ED by ambulance for alcohol intoxication. Patient is requesting a place to stay. He admits to alcohol use today. Patient denies any chest pain, shortness of breath, suicidal ideation, homicidal ideation, or any other complaints at this time. Time Seen by Provider: 03/02/17 20:35 Chief Complaint (Nursing): Substance Abuse History Per: Patient History/Exam Limitations: intoxication Onset/Duration Of Symptoms: Other Current Symptoms Are (Timing): Still Present Suicide/Self Injury Attempted (Context): None Modifying Factor(s): Alcohol Severity: None Pain Scale Rating Of: 0 Associated Symptoms: Other Recent travel outside of the [place]: No Additional History Per: EMS Past Medical History Reviewed: Historical Data, Nursing Documentation, Vital Signs Vital Signs: Last Vital Signs Temp 97.7 F 03/03/17 02:25 Pulse 86 03/03/17 02:25 Resp 16 03/03/17 02:25 BP 149/85 03/03/17 02:25 Pulse Ox 99 03/03/17 04:02 - Medical History PMH: Anxiety, Depression, HTN - [facility] Procedures ALCOHOL DETOXIFICATION (07/07/15) DETOXIFICATION SERVICES FOR SUBSTANCE ABUSE TREATMENT (01/27/17) GROUP BUSINESS PRACTICES SUPERVISOR FOR SUBSTANCE ABUSE TREATMENT, PSYCHOEDUCATION (03/17/16) INDIV PSYCHOTHERAPY FOR SUBSTANCE ABUSE TREATMENT, SUPPORT (02/19/17) INDIV PSYCHOTHERAPY FOR SUBSTANCE ABUSE, COGNITIV BEHAVIORAL (01/27/17) INDIV PSYCHOTHERAPY FOR SUBSTANCE ABUSE, PSYCHOEDUCATION (01/27/17) INDIVIDUAL PSYCHOTHERAPY, SUPPORTIVE (02/19/17) INJECT/INFUSE NEC (04/27/14) MEASUREMENT OF ARTERIAL PRESSURE, PERIPHERAL, PERC APPROACH (03/17/16) MEASUREMENT OF CARDIAC RHYTHM, PERCUTANEOUS APPROACH (03/17/16) MEDICATION MANAGEMENT (02/19/17) ULTRASONOGRAPHY OF RIGHT AND LEFT HEART, TRANSESOPHAGEAL (03/17/16) Family History: States: Unknown Family Hx - Social History Hx Tobacco Use: No Hx Alcohol Use: Yes (324) Hx Substance Use: No - Immunization History Hx Tetanus Toxoid Vaccination: Yes Hx Influenza Vaccination: Yes Hx Pneumococcal Vaccination: No (unknown) Review Of Systems Cardiovascular: Negative for: Chest Pain Respiratory: Negative for: Shortness of Breath Psych: Negative for: Suicidal ideation Physical Exam - Physical Exam Appears: Non-toxic, No Acute Distress, Other (EtOH on breath) Skin: Warm, Dry Head: Atraumatic, Normacephalic Neck: Supple Chest: Symmetrical Cardiovascular: Rhythm Regular Respiratory: No Rales, No Rhonchi, No Wheezing Gastrointestinal/Abdominal: Soft, No Tenderness Back: No CVA Tenderness Extremity: Bilateral: Atraumatic, Normal Color And Temperature ED Course And Treatment O2 Sat by Pulse Oximetry: 99 (RA) Pulse Ox Interpretation: Normal Reevaluation Time: 04:50 Reassessment Condition: Improved ED OBSERVATION Discharge: Yes Date of observation admission: 03/02/17 Time of observation admission: 20:37 - Observation admission statement Patient is being placed in observation because:: acute alcohol intoxication - Goals of Observation Goals of observation are:: sobriety - Progress Note Progress Note: 03/02/17 20:37 vitals stable, no complaints 03/02/17 22:37 no complaints 03/03/17 00:40 vitals stable 03/03/17 02:41 arousable 03/03/17 04:41 vitals stable Disposition Counseled Patient/Family Regarding: Studies Performed, Diagnosis - Disposition Disposition: HOME/ ROUTINE Disposition Time: 20:36 Condition: FAIR - Clinical Impression Clinical Impression: Alcohol abuse, Alcohol intoxication, Alcohol dependence - Scribe Statement The provider has reviewed the documentation as recorded by the Piotr Cole Provider Attestation: All medical record entries made by the Danishibwhit were at my direction and personally dictated by me. I have reviewed the chart and agree that the record accurately reflects my personal performance of the history, physical exam, medical decision making, and the department course for this patient. I have also personally directed, reviewed, and agree with the discharge instructions and disposition.
[2017-03-03 02:26] VITALS: RESP 16
[2017-03-03 05:48] VITALS: BP 156/83; PULSE 83; TEMP 97.8; O2SAT 98
== END 2017-03-03 04:50 | disposition home or self-care (01) ==
LOC: C.ER 18:40 → C.9OBSV 20:36
PROVIDERS: ADMIT Emergency Medicine; ATTEND Emergency Medicine
DX: F10.120 Alcohol abuse with intoxication, uncomplicated (principal); I10 Essential (primary) hypertension; Y90.9 Presence of alcohol in blood, level not specified
CPT/HCPCS: G0378 ×2

== ENCOUNTER 2017-03-06 23:45 | Observation (INO) | payer MEDICAID ==
[2017-03-06 23:45] VITALS: BMI 25.2
[2017-03-06 23:58] VITALS: TEMP 97.4
--- NOTE | 2017-03-07 00:02 | C.PDOC ---
History Of Present Illness Patient presents to the ED by EMS [place] Patient is looking for a place to stay and has no other complaints at this time. Time Seen by Provider: 03/07/17 00:01 Chief Complaint (Nursing): Substance Abuse History Per: Patient, EMS History/Exam Limitations: no limitations Onset/Duration Of Symptoms: Hrs Current Symptoms Are (Timing): Still Present Suicide/Self Injury Attempted (Context): None Recent travel outside of the [place]: No Past Medical History Reviewed: Historical Data, Nursing Documentation, Vital Signs Vital Signs: Last Vital Signs Temp 97.4 F L 03/06/17 23:54 Pulse 74 03/06/17 23:54 Resp 16 03/06/17 23:54 BP 146/96 H 03/06/17 23:54 Pulse Ox 96 03/07/17 00:11 - Medical History PMH: Anxiety, Depression, HTN - [facility] Procedures ALCOHOL DETOXIFICATION (07/07/15) DETOXIFICATION SERVICES FOR SUBSTANCE ABUSE TREATMENT (01/27/17) GROUP TOUR BUS DRIVER/GUIDE FOR SUBSTANCE ABUSE TREATMENT, PSYCHOEDUCATION (03/17/16) INDIV PSYCHOTHERAPY FOR SUBSTANCE ABUSE TREATMENT, SUPPORT (02/19/17) INDIV PSYCHOTHERAPY FOR SUBSTANCE ABUSE, COGNITIV BEHAVIORAL (01/27/17) INDIV PSYCHOTHERAPY FOR SUBSTANCE ABUSE, PSYCHOEDUCATION (01/27/17) INDIVIDUAL PSYCHOTHERAPY, SUPPORTIVE (02/19/17) INJECT/INFUSE NEC (04/27/14) MEASUREMENT OF ARTERIAL PRESSURE, PERIPHERAL, PERC APPROACH (03/17/16) MEASUREMENT OF CARDIAC RHYTHM, PERCUTANEOUS APPROACH (03/17/16) MEDICATION MANAGEMENT (02/19/17) ULTRASONOGRAPHY OF RIGHT AND LEFT HEART, TRANSESOPHAGEAL (03/17/16) Family History: States: Unknown Family Hx - Social History Hx Tobacco Use: No Hx Alcohol Use: Yes (324) Hx Substance Use: No - Immunization History Hx Tetanus Toxoid Vaccination: Yes Hx Influenza Vaccination: Yes Hx Pneumococcal Vaccination: No (unknown) Review Of Systems Constitutional: Negative for: Fever, Chills, Sweats Gastrointestinal: Negative for: Nausea, Vomiting, Abdominal Pain, Diarrhea Physical Exam - Physical Exam Appears: Non-toxic, No Acute Distress, Other (EtOH on breath ) Skin: Warm, Dry Neck: Supple Cardiovascular: Rhythm Regular Respiratory: No Rales, No Rhonchi, No Stridor, No Wheezing Gastrointestinal/Abdominal: Soft, No Tenderness, No Distention, No Guarding, No Rebound Extremity: Normal ROM, No Tenderness Neurological/Psych: Oriented x3 ED Course And Treatment O2 Sat by Pulse Oximetry: 96 Pulse Ox Interpretation: Normal Reevaluation Time: 05:16 Reassessment Condition: Improved ED OBSERVATION Discharge: Yes Date of observation admission: 03/07/17 Time of observation admission: 00:02 - Observation admission statement Patient is being placed in observation because:: acute alcohol intoxication - Goals of Observation Goals of observation are:: sobriety - Progress Note Progress Note: 03/07/17 00:03 vitals stable, no complaints 03/07/17 02:03 no complaints 03/07/17 04:03 vitals stable, arousable Disposition Counseled Patient/Family Regarding: Studies Performed, Diagnosis, Need For Followup - Disposition Disposition: HOME/ ROUTINE Disposition Time: 00:01 Condition: FAIR - Clinical Impression Clinical Impression: Alcoholic intoxication, Alcohol abuse - Scribe Statement The provider has reviewed the documentation as recorded by the Danishibwhit Cisneros All medical record entries made by the Piotr were at my direction and personally dictated by me. I have reviewed the chart and agree that the record accurately reflects my personal performance of the history, physical exam, medical decision making, and the department course for this patient. I have also personally directed, reviewed, and agree with the discharge instructions and disposition.
[2017-03-07 06:25] VITALS: BP 142/68; PULSE 89; RESP 18; O2SAT 97
== END 2017-03-07 05:16 | disposition home or self-care (01) ==
LOC: C.ER 23:45 → C.9OBSV 03-07 00:02
PROVIDERS: ADMIT Emergency Medicine; ATTEND Emergency Medicine
DX: F10.129 Alcohol abuse with intoxication, unspecified (principal); I10 Essential (primary) hypertension; Y90.9 Presence of alcohol in blood, level not specified
CPT/HCPCS: 82948; 99284; G0378

== ENCOUNTER 2017-03-15 01:25 | Observation (INO) | payer MEDICAID ==
[2017-03-15 01:25] VITALS: BMI 25.2
--- NOTE | 2017-03-15 02:06 | C.PDOC ---
History Of Present Illness Patient presents to the ED by EMS [place] Patient is looking for a place to stay and has no other complaints at this time. Time Seen by Provider: 03/15/17 01:37 Chief Complaint (Nursing): Substance Abuse History Per: Patient, EMS Past Medical History Reviewed: Historical Data, Nursing Documentation, Vital Signs Vital Signs: Last Vital Signs Temp 97.6 F 03/15/17 01:34 Pulse 85 03/15/17 02:26 Resp 20 03/15/17 02:26 BP 159/95 H 03/15/17 01:34 Pulse Ox 64 L 03/15/17 05:14 - Medical History PMH: Anxiety, Depression, HTN Denies: Diabetes, Hepatitis, HIV, Chronic Kidney Disease, Seizures, Sexually Transmitted Disease - [facility] Procedures ALCOHOL DETOXIFICATION (07/07/15) DETOXIFICATION SERVICES FOR SUBSTANCE ABUSE TREATMENT (01/27/17) GROUP SHIPWRIGHT FOR SUBSTANCE ABUSE TREATMENT, PSYCHOEDUCATION (03/17/16) INDIV PSYCHOTHERAPY FOR SUBSTANCE ABUSE TREATMENT, SUPPORT (02/19/17) INDIV PSYCHOTHERAPY FOR SUBSTANCE ABUSE, COGNITIV BEHAVIORAL (01/27/17) INDIV PSYCHOTHERAPY FOR SUBSTANCE ABUSE, PSYCHOEDUCATION (01/27/17) INDIVIDUAL PSYCHOTHERAPY, SUPPORTIVE (02/19/17) INJECT/INFUSE NEC (04/27/14) MEASUREMENT OF ARTERIAL PRESSURE, PERIPHERAL, PERC APPROACH (03/17/16) MEASUREMENT OF CARDIAC RHYTHM, PERCUTANEOUS APPROACH (03/17/16) MEDICATION MANAGEMENT (02/19/17) ULTRASONOGRAPHY OF RIGHT AND LEFT HEART, TRANSESOPHAGEAL (03/17/16) Family History: States: Unknown Family Hx - Social History Hx Tobacco Use: No Hx Alcohol Use: Yes (324) Hx Substance Use: No - Immunization History Hx Tetanus Toxoid Vaccination: Yes Hx Influenza Vaccination: Yes Hx Pneumococcal Vaccination: No (unknown) Review Of Systems Review Of Systems: ROS cannot be obtained secondary to pt's inabilty to answer questions. (alcohol intoxication) Physical Exam - Physical Exam Appears: Non-toxic, No Acute Distress Skin: Normal Color, Warm, No Ecchymosis Head: Atraumatic Eye(s): bilateral: PERRL Neck: Normal ROM, Trachea Midline, No Midline Cervical Tenderness, No Paracervical Tenderness, No Step Off Deformity, Supple Chest: Symmetrical, No Deformity, No Tenderness Cardiovascular: Rhythm Regular Respiratory: No Decreased Breath Sounds, No Accessory Muscle Use, No Rhonchi, No Stridor, No Wheezing Gastrointestinal/Abdominal: Soft, No Tenderness, No Distention, No Guarding Back: No Vertebral Tenderness Extremity: No Pedal Edema, No Deformity Neurological/Psych: Normal Motor, Normal Sensation, Normal Reflexes ED Course And Treatment O2 Sat by Pulse Oximetry: 64 ED OBSERVATION Discharge: Yes Date of observation admission: 03/15/17 Time of observation admission: 01:40 - Observation admission statement Patient is being placed in observation because:: Alcohol intoxication - Goals of Observation Goals of observation are:: Observation, neuro re-eval, sobriety - Progress Note Progress Note: 03/15/17 2:20, pt resting comfortably in bed, not n any apparent distress. Neurologicaly intact. 4:10, sleeping, not in any apparent distress. 05:13, pt is awake, alert#3, ambulatory in ED with stable gait. Tolerate po well in ED. neurologicaly intact. Pt is stable for discharge now. Disposition - Disposition Disposition Time: 05:30 Condition: STABLE - Clinical Impression Clinical Impression: Alcohol intoxication
[2017-03-15 05:15] VITALS: O2SAT 64
[2017-03-15 06:03] VITALS: BP 120/74; PULSE 80; RESP 14; TEMP 97.9
== END 2017-03-15 05:14 | disposition home or self-care (01) ==
LOC: C.ER 01:25 → C.9OBSV 02:04
PROVIDERS: ADMIT Emergency Medicine; ATTEND Emergency Medicine
DX: F10.120 Alcohol abuse with intoxication, uncomplicated (principal); Y90.9 Presence of alcohol in blood, level not specified; I10 Essential (primary) hypertension
CPT/HCPCS: 99283; G0378

== ENCOUNTER 2017-04-13 19:24 | Observation (INO) | payer MEDICAID, OTHER ==
[2017-04-13 19:24] VITALS: BMI 25.2
--- NOTE | 2017-04-13 19:46 | C.PDOC ---
History Of Present Illness Patient was brought to the ED by EMS seeking detox with EtOH on breath. Patient states he is "an alcoholic and homeless." Patient denies any suicidal ideations or physical complaints at this time. Time Seen by Provider: 04/13/17 19:45 Chief Complaint (Nursing): Substance Abuse History Per: Patient, EMS History/Exam Limitations: no limitations Onset/Duration Of Symptoms: Hrs Current Symptoms Are (Timing): Still Present Suicide/Self Injury Attempted (Context): None Severity: None Associated Symptoms: denies: Suicidal Thoughts, Suicidal Plan Involuntary Hold By: None Recent travel outside of the [place]: No Past Medical History Reviewed: Historical Data, Nursing Documentation, Vital Signs Vital Signs: Last Vital Signs Temp 98 F 04/14/17 00:27 Pulse 81 04/14/17 00:27 Resp 18 04/14/17 00:27 BP 146/81 04/14/17 00:27 Pulse Ox 97 04/14/17 00:27 - Medical History PMH: Anxiety, Depression, HTN - [facility] Procedures ALCOHOL DETOXIFICATION (07/07/15) DETOXIFICATION SERVICES FOR SUBSTANCE ABUSE TREATMENT (01/27/17) GROUP REGIONAL PLANNER FOR SUBSTANCE ABUSE TREATMENT, PSYCHOEDUCATION (03/17/16) INDIV PSYCHOTHERAPY FOR SUBSTANCE ABUSE TREATMENT, SUPPORT (02/19/17) INDIV PSYCHOTHERAPY FOR SUBSTANCE ABUSE, COGNITIV BEHAVIORAL (01/27/17) INDIV PSYCHOTHERAPY FOR SUBSTANCE ABUSE, PSYCHOEDUCATION (01/27/17) INDIVIDUAL PSYCHOTHERAPY, SUPPORTIVE (02/19/17) INJECT/INFUSE NEC (04/27/14) MEASUREMENT OF ARTERIAL PRESSURE, PERIPHERAL, PERC APPROACH (03/17/16) MEASUREMENT OF CARDIAC RHYTHM, PERCUTANEOUS APPROACH (03/17/16) MEDICATION MANAGEMENT (02/19/17) ULTRASONOGRAPHY OF RIGHT AND LEFT HEART, TRANSESOPHAGEAL (03/17/16) Family History: States: No Known Family Hx - Social History Hx Tobacco Use: No Hx Alcohol Use: Yes (324) Hx Substance Use: No - Immunization History Hx Tetanus Toxoid Vaccination: Yes Hx Influenza Vaccination: Yes Hx Pneumococcal Vaccination: No (unknown) Review Of Systems Constitutional: Negative for: Fever, Chills, Sweats Cardiovascular: Negative for: Chest Pain, Palpitations Respiratory: Negative for: Cough, Shortness of Breath Gastrointestinal: Negative for: Nausea, Vomiting, Abdominal Pain, Diarrhea Neurological: Negative for: Headache, Dizziness Psych: Negative for: Suicidal ideation Physical Exam - Physical Exam Appears: Non-toxic, No Acute Distress, Unkempt, Other (EtOH on breath ) Skin: Warm, Dry Oral Mucosa: Moist Neck: Supple Cardiovascular: Rhythm Regular Respiratory: No Rales, No Rhonchi, No Stridor, No Wheezing Gastrointestinal/Abdominal: Soft, No Tenderness, No Distention, No Guarding, No Rebound Extremity: Normal ROM, No Tenderness Neurological/Psych: Oriented x3 ED Course And Treatment O2 Sat by Pulse Oximetry: 97 (room air ) Pulse Ox Interpretation: Normal Reevaluation Time: 05:03 Reassessment Condition: Improved ED OBSERVATION Discharge: Yes Date of observation admission: 04/13/17 Time of observation admission: 19:47 - Observation admission statement Patient is being placed in observation because:: Patient is intoxicated. - Goals of Observation Goals of observation are:: Sobriety. - Progress Note Progress Note: 04/14/17 00:03 no complaints 04/14/17 04:03 vitals stable Disposition Counseled Patient/Family Regarding: Studies Performed, Diagnosis, Need For Followup - Disposition Disposition: HOME/ ROUTINE Disposition Time: 19:45 Condition: FAIR - Clinical Impression Clinical Impression: Alcohol abuse, Alcohol intoxication - Scribe Statement The provider has reviewed the documentation as recorded by the Scribwhit Cisneros All medical record entries made by the Danishibwhit were at my direction and personally dictated by me. I have reviewed the chart and agree that the record accurately reflects my personal performance of the history, physical exam, medical decision making, and the department course for this patient. I have also personally directed, reviewed, and agree with the discharge instructions and disposition.
[2017-04-14 06:43] VITALS: BP 138/77; PULSE 86; RESP 20; TEMP 97.6; O2SAT 98
== END 2017-04-14 05:04 | disposition home or self-care (01) ==
LOC: C.ER 19:24 → C.9OBSV 19:46
PROVIDERS: ADMIT Emergency Medicine; ATTEND Emergency Medicine
DX: F10.229 Alcohol dependence with intoxication, unspecified (principal); I10 Essential (primary) hypertension; Z59.0 Homelessness; Y90.9 Presence of alcohol in blood, level not specified

== ENCOUNTER 2017-04-16 17:34 | Inpatient (IN) | payer MEDICAID, SELFPAY ==
[2017-04-16 17:34] VITALS: BMI 25.2
--- NOTE | 2017-04-16 18:34 | C.PDOC ---
History Of Present Illness 61 y/o male with Hx of ETOH abuse brought to ED by EMS for intoxication of ETOH. Patient is somnolent but is able to answer questions and requests detox. Patient denies trauma, pain, fever, JARQUIN or any other complaints at this time. Time Seen by Provider: 04/16/17 18:06 Chief Complaint (Nursing): Substance Abuse History Per: Patient History/Exam Limitations: no limitations Onset/Duration Of Symptoms: Days Past Medical History Reviewed: Historical Data, Nursing Documentation, Vital Signs Vital Signs: Last Vital Signs Temp 97.9 F 04/16/17 17:43 Pulse 94 H 04/16/17 17:43 Resp 18 04/16/17 17:43 BP 133/84 04/16/17 17:43 Pulse Ox 99 04/16/17 18:38 - Medical History PMH: Anxiety, Depression, HTN - [facility] Procedures ALCOHOL DETOXIFICATION (07/07/15) DETOXIFICATION SERVICES FOR SUBSTANCE ABUSE TREATMENT (01/27/17) GROUP RACK MAKER FOR SUBSTANCE ABUSE TREATMENT, PSYCHOEDUCATION (03/17/16) INDIV PSYCHOTHERAPY FOR SUBSTANCE ABUSE TREATMENT, SUPPORT (02/19/17) INDIV PSYCHOTHERAPY FOR SUBSTANCE ABUSE, COGNITIV BEHAVIORAL (01/27/17) INDIV PSYCHOTHERAPY FOR SUBSTANCE ABUSE, PSYCHOEDUCATION (01/27/17) INDIVIDUAL PSYCHOTHERAPY, SUPPORTIVE (02/19/17) INJECT/INFUSE NEC (04/27/14) MEASUREMENT OF ARTERIAL PRESSURE, PERIPHERAL, PERC APPROACH (03/17/16) MEASUREMENT OF CARDIAC RHYTHM, PERCUTANEOUS APPROACH (03/17/16) MEDICATION MANAGEMENT (02/19/17) ULTRASONOGRAPHY OF RIGHT AND LEFT HEART, TRANSESOPHAGEAL (03/17/16) Family History: States: Unknown Family Hx - Social History Hx Tobacco Use: No Hx Alcohol Use: Yes (324) Hx Substance Use: No - Immunization History Hx Tetanus Toxoid Vaccination: Yes Hx Influenza Vaccination: Yes Hx Pneumococcal Vaccination: No (unknown) Review Of Systems Except As Marked, All Systems Reviewed And Found Negative. Constitutional: Negative for: Fever, Chills Cardiovascular: Negative for: Chest Pain Respiratory: Negative for: Cough, Shortness of Breath Gastrointestinal: Negative for: Nausea, Vomiting, Diarrhea Genitourinary: Negative for: Dysuria Neurological: Negative for: Weakness, Headache, Dizziness Psych: Negative for: Anxiety, Suicidal ideation Physical Exam - Physical Exam Appears: Other (Ill kept and Malodorous) Skin: Warm Head: Atraumatic, Normacephalic Eye(s): bilateral: Normal Inspection, PERRL Oral Mucosa: Moist Respiratory: No Rales, No Rhonchi, No Wheezing Gastrointestinal/Abdominal: Soft, No Tenderness, No Guarding, No Rebound Neurological/Psych: Oriented x3 ED Course And Treatment - Laboratory Results Result Diagrams: 04/16/17 18:41 04/16/17 18:41 O2 Sat by Pulse Oximetry: 99 (RA) Pulse Ox Interpretation: Normal Medical Decision Making Medical Decision Making: Patient is slumped over resting Disposition - Disposition Disposition Time: 19:18 Condition: GUARDED - Clinical Impression Clinical Impression: Alcohol abuse - PA / CUSTOMER ACCOUNT SPECIALIST / Resident Statement MD/DO has reviewed & agrees with the documentation as recorded. MD/DO has examined the patient and agrees with the treatment plan. - Scribe Statement The provider has reviewed the documentation as recorded by the Danishibwhit Lr All medical record entries made by the Danishibwhit were at my direction and personally dictated by me. I have reviewed the chart and agree that the record accurately reflects my personal performance of the history, physical exam, medical decision making, and the department course for this patient. I have also personally directed, reviewed, and agree with the discharge instructions and disposition. Physician Patient Turnover Patient Signed Over To: Pillo Morales Handoff Comments: intoxicated patient , pending sobriety and possibly detox
[2017-04-16 18:52] LABS: CHLORIDE 106 mmol/L (98-107)
[2017-04-16 18:53] LABS: BASO # 0.1 K/uL (0.0-0.2); BASO % 1.3 % (0.0-2.0); EOS % 1.2 % (0.0-4.0); HEMATOCRIT 31.6 % (35.0-51.0); LYMPH # 1.4 K/uL (1.0-4.3); LYMPH % 33.7 % (20.0-40.0); MEAN CELL VOLUME 97.6 fL (80.0-94.0); MEAN CORPUSCULAR HEMOGLOBIN 32.9 pg (27.0-31.0); MEAN CORPUSCULAR HGB CONC 33.7 g/dL (33.0-37.0); MEAN PLATELET VOLUME 6.5 fL (7.2-11.7); MONO # 0.3 K/uL (0.0-0.8); MONO % 6.9 % (0.0-10.0); NRBC % 0.1 % (0.0-2.0); POTASSIUM 3.2 mmol/L (3.6-5.2); RED CELL DISTRIBUTION WIDTH 16.9 % (11.5-14.5); SODIUM 144 mmol/L (132-148)
[2017-04-16 18:55] LABS: ALB/GLOB RATIO 0.9 (1.0-2.1); ALKALINE PHOSPHATASE 62 U/L (38-126); AST/SGOT 92 U/L (17-59); BILIRUBIN,TOTAL 0.5 mg/dL (0.2-1.3); BLOOD UREA NITROGEN 16 mg/dL (9-20); CARBON DIOXIDE 26 mmol/L (22-30); GFR AFRICAN-AMERICAN > 60; TOTAL PROTEIN 7.2 g/dL (6.3-8.3)
[2017-04-16 18:56] LABS: ALT/SGPT 65 U/L (21-72); CALCIUM 7.7 mg/dl (8.6-10.4); GLUCOSE,RANDOM 119 mg/dL (75-110)
[2017-04-16 19:12] LABS: ALCOHOL SERUM 438 mg/dl (0-10)
[2017-04-17] MEDS ORDERED: Naloxone 0.4 mg/ml Inj (Adult) ONE (00:08)
[2017-04-17 03:23] LABS: RBC URINE 1 /hpf (0-3); URINE BILIRUBIN NEGATIVE (NEGATIVE); URINE COLOR Yellow (YELLOW); URINE GLUCOSE (UA) NORMAL (Normal); URINE KETONE NEGATIVE (NEGATIVE); URINE LEUKOCYTE ESTERASE NEG Leu/uL (Negative); URINE PROTEIN NEGATIVE (NEGATIVE); URINE UROBILINOGEN NORMAL mg/dL (0.2-1.0); WBC URINE 8 /hpf (0-5)
[2017-04-17 03:25] LABS: URINE BLOOD TRACE (NEGATIVE)
[2017-04-17] MEDS: Multiple Vitamins Tab PO SCH (09:12)
[2017-04-17] MEDS ORDERED: Potassium Chloride 20 mEq ER Tab PO ONE (10:00)
[2017-04-17] MEDS: Calcium-Vit D 250 mg-125 Units Tab UD PO SCH (10:46)
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
[2017-04-18 08:38] LABS: EOS # 0.1 K/uL (0.0-0.7); EOS % 2.6 % (0.0-4.0); HEMATOCRIT 33.3 % (35.0-51.0); MEAN CORPUSCULAR HEMOGLOBIN 32.8 pg (27.0-31.0); MEAN CORPUSCULAR HGB CONC 33.4 g/dL (33.0-37.0); MEAN PLATELET VOLUME 7.2 fL (7.2-11.7); MONO # 0.4 K/uL (0.0-0.8); NRBC % 0.1 % (0.0-2.0); RED CELL DISTRIBUTION WIDTH 16.3 % (11.5-14.5); WHITE BLOOD COUNT 3.4 K/uL (4.8-10.8)
[2017-04-18 08:46] LABS: CHLORIDE 99 mmol/L (98-107); SODIUM 133 mmol/L (132-148)
[2017-04-18 08:47] LABS: POTASSIUM 3.8 mmol/L (3.6-5.2)
[2017-04-18 08:48] LABS: CHOLESTEROL 204 mg/dL (0-199); GFR AFRICAN-AMERICAN > 60
[2017-04-18 08:49] LABS: ALB/GLOB RATIO 0.9 (1.0-2.1); ALKALINE PHOSPHATASE 53 U/L (38-126); AST/SGOT 73 U/L (17-59); BILIRUBIN,TOTAL 1.1 mg/dL (0.2-1.3); BLOOD UREA NITROGEN 14 mg/dL (9-20); CARBON DIOXIDE 27 mmol/L (22-30); GLUCOSE,RANDOM 84 mg/dL (75-110); TOTAL PROTEIN 6.7 g/dL (6.3-8.3)
[2017-04-18 08:50] LABS: ALT/SGPT 51 U/L (21-72); CALCIUM 7.9 mg/dl (8.6-10.4)
[2017-04-18 09:20] LABS: THYROID STIMULATING HORMONE 0.81 mIU/L (0.46-4.68)
[2017-04-18] MEDS: Calcium-Vit D 250 mg-125 Units Tab UD PO SCH (09:46)
[2017-04-18] MEDS: Multiple Vitamins Tab PO SCH (09:46)
--- NOTE | 2017-04-18 11:32 | CP.PCM.PN ---
Addendum entered and electronically signed by Nichelle Tavarez DO 04/18/17 18:43 : Medicine team will be signing off of this patient. Last blood pressure reading was 127/82. Continue current blood pressure medications. Please reconsult as needed. Thank you. Original Note: <Nichelle Tavarez - Last Filed: 04/18/17 11:29> Subjective - Date & Time of Evaluation Date of Evaluation: 04/18/17 Time of Evaluation: 11:00 - Subjective Subjective: Medicine Note for Dr. Monahan, Patient was seen and examined at bedside. Patient had no acute complaints. Medicine team will continue to monitor his HTN. Denied fever, chills, headache, chest pain, abdominal pain, n/v/d/c, or urinary symptoms. Objective - Vital Signs/Intake and Output Vital Signs (last 24 hours): Temp Pulse Resp BP Pulse Ox 97.6 F 65 18 145/92 H 98 04/18/17 09:04 04/18/17 09:04 04/18/17 09:04 04/18/17 09:04 04/18/17 09:04 - Medications Medications: Current Medications Amlodipine Besylate (Norvasc) 10 mg PO DAILY [facility] Last Admin: 04/18/17 11:01 Dose: 10 mg Calcium/Vitamin D (Oscal-D 250 Mg-125 Units Tab) 1 tab PO DAILY [facility] Last Admin: 04/18/17 09:46 Dose: 1 tab Chlordiazepoxide (Librium) 25 mg PO Q6 [facility] PRN Reason: Taper Stop: 04/21/17 11:59 Last Admin: 04/18/17 06:18 Dose: Not Given Chlordiazepoxide (Librium) 25 mg PO Q4H PRN PRN Reason: Alcohol Withdrawal Last Admin: 04/17/17 14:06 Dose: 25 mg Clonidine HCl (Catapres) 0.1 mg PO Q4H PRN PRN Reason: Symptoms of alcohol withdrawl Last Admin: 04/17/17 15:45 Dose: 0.1 mg Escitalopram Oxalate (Lexapro) 5 mg PO DAILY [facility] Last Admin: 04/18/17 09:46 Dose: 5 mg Folic Acid (Folic Acid) 1 mg PO DAILY [facility] Last Admin: 04/18/17 09:46 Dose: 1 mg Gabapentin (Neurontin) 300 mg PO BID [facility] Last Admin: 04/18/17 09:46 Dose: 300 mg Hydroxyzine HCl (Atarax) 50 mg PO Q6H PRN PRN Reason: Anxiety Ibuprofen (Motrin Tab) 600 mg PO Q6H PRN PRN Reason: Pain, moderate (4-7) Metoprolol Tartrate (Lopressor) 25 mg PO Q12H [facility] Last Admin: 04/18/17 06:15 Dose: Not Given Multivitamins (Hexavitamin) 1 tab PO DAILY [facility] Last Admin: 04/18/17 09:46 Dose: 1 tab Pneumococcal Polyvalent Vaccine (Pneumovax 23 Vaccine) 0.5 ml IM .ONCE ONE Stop: 04/19/17 09:44 Thiamine HCl (Vitamin B1 Tab) 100 mg PO DAILY [facility] Last Admin: 04/18/17 09:46 Dose: 100 mg Trazodone HCl (Desyrel) 100 mg PO HS PRN PRN Reason: Insomnia - Labs Labs: 04/18/17 08:26 04/18/17 08:26 - Constitutional Appears: No Acute Distress - Head Exam Head Exam: NORMAL INSPECTION, NORMOCEPHALIC - Respiratory Exam Respiratory Exam: Clear to Ausculation Bilateral, NORMAL BREATHING PATTERN. absent: Wheezes - Cardiovascular Exam Cardiovascular Exam: REGULAR RHYTHM, RRR, +S1, +S2 - GI/Abdominal Exam GI & Abdominal Exam: Soft, Normal Bowel Sounds. absent: Distended, Tenderness - Extremities Exam Extremities Exam: Normal Inspection. absent: Pedal Edema, Tenderness - Neurological Exam Neurological Exam: Alert, Awake, Oriented x3 - Skin Skin Exam: Dry, Intact, Normal Color, Warm Assessment and Plan - Assessment and Plan (Free Text) Plan: HTN Increase Norvasc to 10mg PO daily Lopressor 25mg PO q12H held due to HR < 60 Clonidine 0.1mg PO Q4H PRN Monitor symptoms All labs WNL, elevated cholesterol but HDL >80. ETOH use disorder Continue Librium taper and vitamins Management per psych Depression Management per psych DW Daysi Shah DO, PGY-1 <Ritesh Monahan - Last Filed: 04/19/17 07:58> Objective - Vital Signs/Intake and Output Vital Signs (last 24 hours): Temp Pulse Resp BP Pulse Ox 98.9 F 66 18 149/88 98 04/19/17 06:05 04/19/17 06:05 06/04/17 06:05 04/19/17 06:05 04/19/17 06:05 - Medications Medications: Current Medications Amlodipine Besylate (Norvasc) 10 mg PO DAILY [facility] Last Admin: 04/18/17 11:01 Dose: 10 mg Calcium/Vitamin D (Oscal-D 250 Mg-125 Units Tab) 1 tab PO DAILY [facility] Last Admin: 04/18/17 09:46 Dose: 1 tab Chlordiazepoxide (Librium) 25 mg PO TID [facility] PRN Reason: Taper Stop: 04/21/17 11:59 Last Admin: 04/18/17 18:20 Dose: 25 mg Chlordiazepoxide (Librium) 25 mg PO Q4H PRN PRN Reason: Alcohol Withdrawal Last Admin: 04/18/17 21:08 Dose: 25 mg Clonidine HCl (Catapres) 0.1 mg PO Q4H PRN PRN Reason: Symptoms of alcohol withdrawl Last Admin: 04/18/17 13:17 Dose: 0.1 mg Escitalopram Oxalate (Lexapro) 5 mg PO DAILY [facility] Last Admin: 04/18/17 09:46 Dose: 5 mg Folic Acid (Folic Acid) 1 mg PO DAILY [facility] Last Admin: 04/18/17 09:46 Dose: 1 mg Gabapentin (Neurontin) 300 mg PO BID [facility] Last Admin: 04/18/17 18:20 Dose: 300 mg Hydroxyzine HCl (Atarax) 50 mg PO Q6H PRN PRN Reason: Anxiety Ibuprofen (Motrin Tab) 600 mg PO Q6H PRN PRN Reason: Pain, moderate (4-7) Metoprolol Tartrate (Lopressor) 25 mg PO Q12H [facility] Last Admin: 04/18/17 06:15 Dose: Not Given Multivitamins (Hexavitamin) 1 tab PO DAILY [facility] Last Admin: 04/18/17 09:46 Dose: 1 tab Nicotine (Nicoderm Cq) 1 patch TD DAILY [facility] Last Admin: 04/18/17 13:31 Dose: Not Given Pneumococcal Polyvalent Vaccine (Pneumovax 23 Vaccine) 0.5 ml IM .ONCE ONE Stop: 04/19/17 09:44 Thiamine HCl (Vitamin B1 Tab) 100 mg PO DAILY [facility] Last Admin: 04/18/17 09:46 Dose: 100 mg Trazodone HCl (Desyrel) 100 mg PO HS PRN PRN Reason: Insomnia - Labs Labs: 04/18/17 08:26 04/18/17 08:26 Attending/Attestation - Attestation I have personally seen and examined this patient.: Yes I have fully participated in the care of the patient.: Yes I have reviewed all pertinent clinical information, including history, physical exam and plan: Yes Notes (Text): 04/19/17 07:56 Medical Attending: Agree with the above. For now I would keep this current regimen while patient is here at detox. Likely he was earlier in withdrawl and as his treatment for withdraw started it helped with the blood pressure. thank you Ritesh Monahan
--- NOTE | 2017-04-18 15:07 | PCM.PYCHPN ---
Psychiatric Progress Note - Psychiatric Progress Note Patient seen today, length of contact: 15 minutes Patient Chief Complaint: I'm not feeling much better Problems Identified/Issues Discussed: Patient seen. Chart reviewed. Case discussed with staff. Issues related to illness and treatment were discussed with the patient. Reported compliant with treatment with no adverse affects. Tolerating treatment very well. Reported not feeling well has he still has many withdrawal symptoms. His blood pressure was also elevated. Medical team is evaluating the patient. Will observe. At the time of evaluation, patient was awake alert oriented 3, had no delusions, no auditory or visual hallucinations, no suicidal ideations or homicidal ideations. Medical Problems: Hypertension Diagnostic Results: Reviewed DSM 5 Symptoms Update: Reported no improvement Medication Change: No Medical Record Reviewed: Yes Consults ordered or reviewed: Reviewed Mental Status Examination - Cognitive Function Orientation: Person, Place, Situation, Time Memory: Intact Attention: WNL Concentration: WNL Association: WN Fund of Knowledge: [facility] Decription of patient's judgement and insights: Fair - Mood Mood: Depressed - Affect Affect: Flat, Depressed - Speech Speech: Appropriate - Formal Thought Process Formal Thought Process: No Impairment Psychotic Thoughts and Behaviors: None - Suicidal Ideation Suicidal Ideation: No - Homicidal Ideation Homicidal Ideation: No Goal/Treatment Plan - Goal/Treatment Plan Need for Continued Stay: Remain at risks for inpatient hospitalization, Discharge may exacerbated symptoms, Severe functional impairment Progress Toward Problem(s) and Goals/Treatment Plan: Patient education Supportive therapy Continue treatment as before Estimated Date of D/C: 04/21/17 - Smoking Cessation Smoking Cessation Initiated: Yes
[2017-04-19 08:37] LABS: HEMATOCRIT 33.6 % (35.0-51.0); MEAN CELL VOLUME 98.5 fL (80.0-94.0); MEAN CORPUSCULAR HEMOGLOBIN 32.7 pg (27.0-31.0); MEAN CORPUSCULAR HGB CONC 33.2 g/dL (33.0-37.0); MEAN PLATELET VOLUME 7.9 fL (7.2-11.7); RED CELL DISTRIBUTION WIDTH 16.3 % (11.5-14.5); WHITE BLOOD COUNT 4.6 K/uL (4.8-10.8)
[2017-04-19 08:44] LABS: CHLORIDE 101 mmol/L (98-107); SODIUM 137 mmol/L (132-148)
[2017-04-19 08:46] LABS: ALKALINE PHOSPHATASE 69 U/L (38-126); AST/SGOT 70 U/L (17-59); BILIRUBIN,TOTAL 0.8 mg/dL (0.2-1.3); CARBON DIOXIDE 28 mmol/L (22-30); GFR AFRICAN-AMERICAN > 60; TOTAL PROTEIN 7.2 g/dL (6.3-8.3)
[2017-04-19 08:47] LABS: ALT/SGPT 45 U/L (21-72); BLOOD UREA NITROGEN 15 mg/dL (9-20); CALCIUM 8.2 mg/dl (8.6-10.4); GLUCOSE,RANDOM 95 mg/dL (75-110); MAGNESIUM 1.7 mg/dL (1.6-2.3); PHOSPHOROUS 2.9 mg/dL (2.5-4.5)
[2017-04-19] MEDS: Multiple Vitamins Tab PO SCH (09:18)
[2017-04-19] MEDS: Calcium-Vit D 250 mg-125 Units Tab UD PO SCH (09:19)
[2017-04-19] MEDS ORDERED: Pneumococcal 23-Valent Vaccine IM ONE (09:43)
--- NOTE | 2017-04-19 14:25 | PCM.PYCHPN ---
Psychiatric Progress Note - Psychiatric Progress Note Patient seen today, length of contact: 15 minutes Patient Chief Complaint: I'm not feeling much better. Still I feel some abdominal pain Problems Identified/Issues Discussed: Patient seen. Chart reviewed. Case discussed with staff. Issues related to illness and treatment were discussed with the patient. Reported compliant with treatment with no adverse affects. Tolerating treatment very well. Reported not feeling well reported feeling mild abdominal pain on sides of the abdomen which patient was labeling as withdrawal symptoms. His blood pressure was still elevated. Medical team is evaluating the patient. Will observe. At the time of evaluation, patient was awake alert oriented 3, had no delusions, no auditory or visual hallucinations, no suicidal ideations or homicidal ideations. Medical Problems: Hypertension Diagnostic Results: Reviewed Medication Change: No Medical Record Reviewed: Yes Consults ordered or reviewed: Reviewed Mental Status Examination - Cognitive Function Orientation: Person, Place, Situation, Time Memory: Intact Attention: WNL Concentration: WNL Association: WNL Fund of Knowledge: WN Decription of patient's judgement and insights: Fair - Mood Mood: Depressed - Affect Affect: Flat, Depressed - Speech Speech: Appropriate - Formal Thought Process Formal Thought Process: No Impairment Psychotic Thoughts and Behaviors: None - Suicidal Ideation Suicidal Ideation: No - Homicidal Ideation Homicidal Ideation: No Goal/Treatment Plan - Goal/Treatment Plan Need for Continued Stay: Remain at risks for inpatient hospitalization, Discharge may exacerbated symptoms, Severe functional impairment Progress Toward Problem(s) and Goals/Treatment Plan: Patient education Supportive therapy Continue treatment as before Estimated Date of D/C: 04/21/17 - Smoking Cessation Smoking Cessation Initiated: Yes
[2017-04-20 06:02] VITALS: RESP 18
[2017-04-20 08:47] VITALS: BP 149/92; PULSE 60; TEMP 97.8; O2SAT 99
--- NOTE | 2017-04-20 08:56 | PCM.PYCHDC ---
Mental Status Examination - Mental Status Examination Orientation: Person, Place, Situation, Time Memory: Impaired Mood: Anxious Affect: Constricted Speech: Appropriate Attention: WNL Concentration: Poor Association: WNL Fund of Knowledge: Poor Formal Thought Process: No Impairment Suicidal Ideation: No Current Homicidal Ideation?: No Discharge Summary - Discharge Note Reason for Hospitalization: Alcohol detox Consultations:: List each consultation separately and include: 1. Reason for request. 2. Findings. 3. Follow-up Summary of Hospital Course include:: 1. Description of specific treatment plan utilized for patients during their course of treatmen. 2. Summarize the time- course for resolution of acute symptoms and/or regressed behaviors. 3. Describe issues identified and worked on during hospitalization. 4. Describe medication utilized. 5. Describe medical problems identified and treated. 6. Reassessment of suicide risk Summary of Hospital Course: Pt is a 61 y/o AA male, single, no child, homeless, unemployed. On admission: Patient states he drink vodka 6-7 pints/day since the age of 18. His longest period of sobriety was 14 years, but last relapsed while incarcerated from 1990 to 2002. Pt has been to detox more than 10 times in the past, and rehab twice at [facility] and [facility], "maybe more." he was last at [facility] and discharged but e wouldn;t reveal why. The pt denies use of any other drugs. he states he smokes 2 packs/day. He also adds that he is not sure if he is ready to quit but he was open to discuss. RI used. he was also depressed and agreed to take meds, not suicidal/homicidal and no AVH /del elicited. he is known to us from psych admissions. Past psych hx: Admitted to 5 E with MDD PMH: HTN Family psych hx: denies Hospital course: The pt was admitted and started on treatment with psychotherapy, support, psychoeducation and medications. RI and CBT used. The pt attended groups and activities, as well as milieu therapy. All the risks and benefits of medications are discussed and the patient understood and agreed. After care discussed with the patient. He was NOT interested in pretty much anything and he even admitted that he was NOT sure if he wanted to stop or not. Nevertheless, he is encouraged to stay abstinent, attend meetings and consider other options. - Final Diagnosis (DSM 5) Condition upon Discharge: IMPROVED DSM 5: Alcohol withdrawal Alcohol use d/o - severe Major depressive d/o - recurrent, moderate Tobacco use d/o -severe Disposition: HOME/ ROUTINE Follow-up Treatment Plan: Continue below medications after discharge. Doses are adjusted Follow after care plan as discussed. Meetings Use relapse prevention skills Return to ER or call 911 if suicidal, homicidal or symptoms relapse. Stay away from stress, alcohol and drugs. Prescriptions/Medication Reconciliation: amLODIPine [Norvasc] 10 mg PO DAILY #30 tab Calcium Carbonate/Vitamin D [Oscal-D 250 mg-125 Units Tab] 1 tab PO DAILY #30 tab Escitalopram [Lexapro] 10 mg PO DAILY #30 tab Gabapentin [Neurontin] 300 mg PO BID #60 cap Metoprolol Tartrate [Lopressor] 25 mg PO Q12H #60 tab Multivitamins [Hexavitamin] 1 tab PO DAILY #30 tab traZODone [Desyrel] 100 mg PO HS PRN #30 tab PRN Reason: Insomnia
[2017-04-20] MEDS: Multiple Vitamins Tab PO SCH (09:26)
[2017-04-20] MEDS: Calcium-Vit D 250 mg-125 Units Tab UD PO SCH (09:26)
== END 2017-04-20 09:40 | disposition home or self-care (01) | DRG 750 ==
LOC: C.ER 17:34 → C.7D 04-17 07:40
PROVIDERS: ADMIT Psychiatry & Neurology Psychiatry; ATTEND Psychiatry & Neurology Psychiatry
PROC: HZ2ZZZZ Detoxification Services for Substance Abuse Treatment (ICD-10-PCS; principal; 2017-04-17)
PROC: HZ52ZZZ Individual Psychotherapy for Substance Abuse Treatment, Cognitive-Behavioral (ICD-10-PCS; 2017-04-17)
PROC: HZ59ZZZ Individual Psychotherapy for Substance Abuse Treatment, Supportive (ICD-10-PCS; 2017-04-17)
PROC: HZ56ZZZ Individual Psychotherapy for Substance Abuse Treatment, Psychoeducation (ICD-10-PCS; 2017-04-17)
DX: F10.239 Alcohol dependence with withdrawal, unspecified (principal); F33.1 Major depressive disorder, recurrent, moderate; I10 Essential (primary) hypertension; F17.210 Nicotine dependence, cigarettes, uncomplicated; F41.9 Anxiety disorder, unspecified; Z59.0 Homelessness; Z82.49 Family history of ischemic heart disease and other diseases of the circulatory system; Z83.3 Family history of diabetes mellitus

== ENCOUNTER 2017-04-22 10:21 | Emergency (ER) | payer MEDICAID ==
[2017-04-22 10:23] VITALS: BMI 25.2
[2017-04-22 10:29] VITALS: BP 145/84; PULSE 72; RESP 20; TEMP 97.5; O2SAT 96
--- NOTE | 2017-04-22 10:44 | C.PDOC ---
History Of Present Illness 61 y/o male brought to ED by BLS for public intoxication. Patient was discharged from detox at [facility] yesterday and states he was drinking today. Patient accompanied by his girlfriend at bedside and wants to leave. Denies any other complaints on arrival. Time Seen by Provider: 04/22/17 10:28 Chief Complaint (Nursing): Substance Abuse History Per: Patient History/Exam Limitations: no limitations Current Symptoms Are (Timing): Still Present Modifying Factor(s): Alcohol Associated Symptoms: denies: Suicidal Thoughts, Suicidal Plan Recent travel outside of the [place]: No Past Medical History Reviewed: Historical Data, Nursing Documentation, Vital Signs Vital Signs: Last Vital Signs Temp 97.5 F L 04/22/17 10:26 Pulse 72 04/22/17 10:26 Resp 20 04/22/17 10:26 BP 145/84 04/22/17 10:26 Pulse Ox 96 04/22/17 11:05 - Medical History PMH: Anxiety, Depression, HTN - [facility] Procedures ALCOHOL DETOXIFICATION (07/07/15) DETOXIFICATION SERVICES FOR SUBSTANCE ABUSE TREATMENT (01/27/17) GROUP WOOL MIXER FOR SUBSTANCE ABUSE TREATMENT, PSYCHOEDUCATION (03/17/16) INDIV PSYCHOTHERAPY FOR SUBSTANCE ABUSE TREATMENT, SUPPORT (02/19/17) INDIV PSYCHOTHERAPY FOR SUBSTANCE ABUSE, COGNITIV BEHAVIORAL (01/27/17) INDIV PSYCHOTHERAPY FOR SUBSTANCE ABUSE, PSYCHOEDUCATION (01/27/17) INDIVIDUAL PSYCHOTHERAPY, SUPPORTIVE (02/19/17) INJECT/INFUSE NEC (04/27/14) MEASUREMENT OF ARTERIAL PRESSURE, PERIPHERAL, PERC APPROACH (03/17/16) MEASUREMENT OF CARDIAC RHYTHM, PERCUTANEOUS APPROACH (03/17/16) MEDICATION MANAGEMENT (02/19/17) ULTRASONOGRAPHY OF RIGHT AND LEFT HEART, TRANSESOPHAGEAL (03/17/16) Family History: States: Unknown Family Hx - Social History Hx Tobacco Use: No Hx Alcohol Use: Yes Hx Substance Use: Yes (alcoholism) - Immunization History Hx Tetanus Toxoid Vaccination: Yes Hx Influenza Vaccination: Yes Hx Pneumococcal Vaccination: No (unknown) Review Of Systems Except As Marked, All Systems Reviewed And Found Negative. Constitutional: Negative for: Fever, Chills Respiratory: Negative for: Shortness of Breath Gastrointestinal: Negative for: Nausea, Vomiting Skin: Negative for: Rash Neurological: Negative for: Dizziness Physical Exam - Physical Exam Appears: Non-toxic, No Acute Distress, Other (+AOB) Skin: Normal Color, Warm, Dry Head: Atraumatic, Normacephalic Chest: Symmetrical Cardiovascular: Rhythm Regular Respiratory: Normal Breath Sounds, No Rhonchi, No Wheezing Gastrointestinal/Abdominal: Normal Exam, Soft, No Tenderness Back: Normal Inspection Extremity: Normal ROM, Capillary Refill (< 2 sec. ) Neurological/Psych: Oriented x3, Normal Speech, Normal Cognition ED Course And Treatment O2 Sat by Pulse Oximetry: 96 (RA) Pulse Ox Interpretation: Normal Progress Note: Patient request discharge and declines detox or psych evaluation. Ambulating with steady gait, alert Reassessment Condition: Improved Disposition Counseled Patient/Family Regarding: Diagnosis, Need For Followup - Disposition Referrals: Alcoholics Anonymous [Outside] [facility] [Outside] [facility] [Outside] Disposition: HOME/ ROUTINE Disposition Time: 11:10 Condition: STABLE Additional Instructions: Return to ED if any increase symptoms or problem Follow up with out patient services Instructions: Abuse of Alcohol (ED), Alcohol Use Disorder (ED) - POA Present On Arrival: None - Clinical Impression Clinical Impression: Alcohol abuse, Alcoholic intoxication - PA / COSTUME DRAPER / Resident Statement MD/DO has reviewed & agrees with the documentation as recorded. - Scribe Statement The provider has reviewed the documentation as recorded by the Scribwhit So All medical record entries made by the Danishibwhit were at my direction and personally dictated by me. I have reviewed the chart and agree that the record accurately reflects my personal performance of the history, physical exam, medical decision making, and the department course for this patient. I have also personally directed, reviewed, and agree with the discharge instructions and disposition.
== END 2017-04-22 11:10 | disposition home or self-care (01) ==
LOC: C.ER 10:21
DX: F10.129 Alcohol abuse with intoxication, unspecified (principal)

== ENCOUNTER 2017-06-11 12:55 | Observation (INO) | payer MEDICAID, SELFPAY ==
[2017-06-11 12:56] VITALS: BMI 25.2
--- NOTE | 2017-06-11 14:35 | C.PDOC ---
History Of Present Illness 61-year-old male, PMhx includes EtOH Abuse, Hypertension, Anxiety and Depression , presents to the emergency department with complaints of public intoxication. Patient has no physical complaints at this time. Time Seen by Provider: 06/11/17 13:24 Chief Complaint (Nursing): Substance Abuse History Per: Patient History/Exam Limitations: no limitations Onset/Duration Of Symptoms: Days Current Symptoms Are (Timing): Still Present Past Medical History Reviewed: Historical Data, Nursing Documentation, Vital Signs Vital Signs: Last Vital Signs Temp 98 F 06/11/17 20:23 Pulse 58 L 06/11/17 20:23 Resp 18 06/11/17 20:23 BP 155/82 H 06/11/17 20:23 Pulse Ox 95 06/11/17 20:23 - Medical History PMH: Anxiety, Depression, HTN Denies: HIV, Chronic Kidney Disease, Seizures, Sexually Transmitted Disease - [facility] Procedures ALCOHOL DETOXIFICATION (07/07/15) DETOXIFICATION SERVICES FOR SUBSTANCE ABUSE TREATMENT (04/17/17) GROUP ASSISTANT PROFESSOR OF ENGLISH FOR SUBSTANCE ABUSE TREATMENT, PSYCHOEDUCATION (03/17/16) INDIV PSYCHOTHERAPY FOR SUBSTANCE ABUSE TREATMENT, SUPPORT (04/17/17) INDIV PSYCHOTHERAPY FOR SUBSTANCE ABUSE, COGNITIV BEHAVIORAL (04/17/17) INDIV PSYCHOTHERAPY FOR SUBSTANCE ABUSE, PSYCHOEDUCATION (04/17/17) INDIVIDUAL PSYCHOTHERAPY, SUPPORTIVE (02/19/17) INJECT/INFUSE NEC (04/27/14) MEASUREMENT OF ARTERIAL PRESSURE, PERIPHERAL, PERC APPROACH (03/17/16) MEASUREMENT OF CARDIAC RHYTHM, PERCUTANEOUS APPROACH (03/17/16) MEDICATION MANAGEMENT (02/19/17) ULTRASONOGRAPHY OF RIGHT AND LEFT HEART, TRANSESOPHAGEAL (03/17/16) Family History: States: No Known Family Hx - Social History Hx Tobacco Use: No Hx Alcohol Use: Yes Hx Substance Use: No (alcoholism) - Immunization History Hx Tetanus Toxoid Vaccination: Yes Hx Influenza Vaccination: Yes (2017) Hx Pneumococcal Vaccination: No (unknown) Review Of Systems Constitutional: Negative for: Fever Cardiovascular: Negative for: Chest Pain, Palpitations Respiratory: Negative for: Shortness of Breath Gastrointestinal: Negative for: Vomiting Neurological: Negative for: Weakness, Numbness Physical Exam - Physical Exam Appears: Non-toxic, No Acute Distress, Other (intoxicated. ) Skin: Warm, Dry, No Rash Head: Atraumatic Neck: Normal ROM Respiratory: No Accessory Muscle Use Extremity: Normal ROM ED Course And Treatment O2 Sat by Pulse Oximetry: 98 Pulse Ox Interpretation: Normal Reevaluation Time: 21:26 Reassessment Condition: Improved (Patient awake and alert. States he wants "detox". Advised of unavailability of beds and provided with resource list.) Disposition - Disposition Disposition: HOME/ ROUTINE Disposition Time: 21:27 Condition: IMPROVED - Clinical Impression Clinical Impression: Alcohol intoxication - Scribe Statement The provider has reviewed the documentation as recorded by the Scribe (Richard Cervantes) All medical record entries made by the Scribe were at my direction and personally dictated by me. I have reviewed the chart and agree that the record accurately reflects my personal performance of the history, physical exam, medical decision making, and the department course for this patient. I have also personally directed, reviewed, and agree with the discharge instructions and disposition
[2017-06-11 20:25] VITALS: RESP 18
[2017-06-11 22:01] VITALS: BP 142/77; PULSE 66; TEMP 97.8; O2SAT 96
== END 2017-06-11 21:29 | disposition home or self-care (01) ==
LOC: C.ER 12:55 → C.9OBSV 13:37
PROVIDERS: ADMIT Emergency Medicine; ATTEND Emergency Medicine
DX: F10.229 Alcohol dependence with intoxication, unspecified (principal); I10 Essential (primary) hypertension; Y90.9 Presence of alcohol in blood, level not specified

== ENCOUNTER 2017-06-17 14:07 | Observation (INO) | payer MEDICAID ==
[2017-06-17 14:08] VITALS: BMI 25.2
--- NOTE | 2017-06-17 14:53 | C.PDOC ---
History Of Present Illness A 61 y/o M with history of alcohol abuse and depression states that he "fell out today" striking the left side of his head today. States that he is depressed because he lost his son a month ago; Unable to determine if patient lost consciousness being a poor historian due to ETOH intoxication. Patient was seen at [facility] last night stating he left "without them doing anything". Time Seen by Provider: 06/17/17 14:28 Chief Complaint (Nursing): Dizziness/Lightheaded History Per: Patient History/Exam Limitations: intoxication (ETOH) Onset/Duration Of Symptoms: Hrs Current Symptoms Are (Timing): Still Present Fall Associated With With Symptoms: Yes Severity: Mild Recent travel outside of the [place]: No Additional History Per: Patient Past Medical History Reviewed: Historical Data, Nursing Documentation, Vital Signs Vital Signs: Last Vital Signs Temp Pulse 91 H 06/17/17 19:07 Resp 18 06/17/17 19:07 BP 134/76 06/17/17 19:07 Pulse Ox 94 L 06/18/17 00:38 - Medical History PMH: Anxiety, Depression, HTN Denies: HIV, Chronic Kidney Disease, Seizures, Sexually Transmitted Disease - [facility] Procedures ALCOHOL DETOXIFICATION (07/07/15) DETOXIFICATION SERVICES FOR SUBSTANCE ABUSE TREATMENT (04/17/17) GROUP DRAMATIC ART TEACHER FOR SUBSTANCE ABUSE TREATMENT, PSYCHOEDUCATION (03/17/16) INDIV PSYCHOTHERAPY FOR SUBSTANCE ABUSE TREATMENT, SUPPORT (04/17/17) INDIV PSYCHOTHERAPY FOR SUBSTANCE ABUSE, COGNITIV BEHAVIORAL (04/17/17) INDIV PSYCHOTHERAPY FOR SUBSTANCE ABUSE, PSYCHOEDUCATION (04/17/17) INDIVIDUAL PSYCHOTHERAPY, SUPPORTIVE (02/19/17) INJECT/INFUSE NEC (04/27/14) MEASUREMENT OF ARTERIAL PRESSURE, PERIPHERAL, PERC APPROACH (03/17/16) MEASUREMENT OF CARDIAC RHYTHM, PERCUTANEOUS APPROACH (03/17/16) MEDICATION MANAGEMENT (02/19/17) ULTRASONOGRAPHY OF RIGHT AND LEFT HEART, TRANSESOPHAGEAL (03/17/16) Family History: States: Unknown Family Hx - Social History Hx Tobacco Use: No Hx Alcohol Use: Yes Hx Substance Use: No (alcoholism) - Immunization History Hx Tetanus Toxoid Vaccination: Yes Hx Influenza Vaccination: Yes (2017) Hx Pneumococcal Vaccination: No (unknown) Review Of Systems Review Of Systems: ROS cannot be obtained secondary to pt's inabilty to answer questions. Constitutional: Positive for: Other (ETOH intoxication. ) Musculoskeletal: Positive for: Other (Injury to the left side of his head.) Psych: Positive for: Depression Physical Exam - Physical Exam Appears: Non-toxic, No Acute Distress, Other (ETOH intoxicated) Skin: Warm, Dry Head: Atraumatic (No signs of injury), Normacephalic, No Swelling, No Abrasion Neck: No Midline Cervical Tenderness, No Paracervical Tenderness, No Step Off Deformity, Supple Chest: Symmetrical Cardiovascular: Rhythm Regular Respiratory: Normal Breath Sounds, No Accessory Muscle Use, No Rales, No Rhonchi , No Wheezing Neurological/Psych: Oriented x3 (Awake and alert), No Normal Speech (Slurred speech) ED Course And Treatment - Laboratory Results Result Diagrams: 06/17/17 14:51 06/17/17 14:51 Lab Interpretation: Abnormal (Elevated Na and Cl, 149,109) ECG: Interpreted By Nm ECG Rhythm: Sinus Rhythm ECG Interpretation: Normal O2 Sat by Pulse Oximetry: 94 (RA) Pulse Ox Interpretation: Normal - CT Scan/US Head Other Rad Studies (CT/US): Read By Radiologist, Radiology Report Reviewed CT/US Interpretation: Accession No. : [id number]. Patient Name / ID : KARSON MCDERMOTT / [id number]. Exam Date : 06/17/2017 14:59:57 ( Approved ). Study Comment : Sex / Age : M / 61Y. Creator : AMANDA AREVALO MD. Dictator : AMANDA AREVALO MD. Partner Marketing Intern : Insemination Worker : AMANDA AREVALO MD. Approver2 : Report Date : 06/17/2017 15:23:16. My Comment : . PROCEDURE: CT HEAD WITHOUT CONTRAST. HISTORY: Head injury. COMPARISON: 11/27/2016. TECHNIQUE: Axial computed tomography images were obtained through the head/brain without intravenous contrast. Radiation dose: Total exam DLP = 975.45 mGy-cm. This CT exam was performed using one or more of the following dose reduction techniques: Automated exposure control, adjustment of the mA and/or kV according to patient size, and/or use of iterative reconstruction technique. FINDINGS: HEMORRHAGE: No intracranial hemorrhage. BRAIN: There are moderate chronic microangiopathic changes. There is no mass, mass effect or abnormal extra-axial fluid collection. VENTRICLES: There is mild age-related global parenchymal volume loss and proportionate enlargement of the ventricles and cortical sulci. There is a cavum septum pellucidum. CALVARIUM: There is no calvarial fracture or extracranial soft tissue swelling. PARANASAL SINUSES: Unremarkable as visualized. No significant inflammatory changes. MASTOID AIR CELLS: Unremarkable as visualized. No inflammatory changes. OTHER FINDINGS: None. IMPRESSION: No acute intracranial abnormality. Moderate chronic microangiopathic changes and mild age-related involutional changes. Progress Note: Patient remained comfortable and cooperative in ED. 1:1 observation maintained and friend remained at bedside. Crisis to evaluate for depression and possible suicidal ideation when sober. Medical Decision Making Medical Decision Making: Impression: A 61 y/o M c/o depression and left sided head injury that occurred today. Plans: * CT Head w/o contrast * EKG * Blood work up * UA * Reassess Disposition - Disposition Disposition Time: 00:37 Condition: STABLE - Clinical Impression Clinical Impression: Alcohol intoxication, Major depression - Scribe Statement The provider has reviewed the documentation as recorded by the Scribe [place] All medical record entries made by the Scribe were at my direction and personally dictated by me. I have reviewed the chart and agree that the record accurately reflects my personal performance of the history, physical exam, medical decision making, and the department course for this patient. I have also personally directed, reviewed, and agree with the discharge instructions and disposition. Physician Patient Turnover Patient Signed Over To: Maria Luz Sanchez Handoff Comments: pending sobriety and crisis evaluation.
[2017-06-17 15:00] LABS: BASO % 0.9 % (0.0-2.0); EOS # 0.1 K/uL (0.0-0.7); EOS % 1.2 % (0.0-4.0); HEMATOCRIT 34.3 % (35.0-51.0); LYMPH # 1.8 K/uL (1.0-4.3); LYMPH % 35.9 % (20.0-40.0); MEAN CORPUSCULAR HGB CONC 33.8 g/dL (33.0-37.0); MEAN PLATELET VOLUME 6.7 fL (7.2-11.7); MONO # 0.4 K/uL (0.0-0.8); MONO % 8.9 % (0.0-10.0); NRBC % 0.1 % (0.0-2.0); RED CELL DISTRIBUTION WIDTH 14.9 % (11.5-14.5)
[2017-06-17 15:04] LABS: CHLORIDE 109 mmol/L (98-107)
[2017-06-17 15:05] LABS: SODIUM 149 mmol/L (132-148)
[2017-06-17 15:06] LABS: POTASSIUM 3.6 mmol/L (3.6-5.2)
[2017-06-17 15:07] LABS: MEAN CELL VOLUME 94.4 fL (80.0-94.0)
[2017-06-17 15:08] LABS: ALB/GLOB RATIO 0.9 (1.0-2.1); ALKALINE PHOSPHATASE 72 U/L (38-126); ALT/SGPT 45 U/L (21-72); AST/SGOT 52 U/L (17-59); BILIRUBIN,TOTAL 0.7 mg/dL (0.2-1.3); BLOOD UREA NITROGEN 20 mg/dL (9-20); CALCIUM 8.2 mg/dl (8.6-10.4); CARBON DIOXIDE 24 mmol/L (22-30); GFR AFRICAN-AMERICAN > 60; GLUCOSE,RANDOM 88 mg/dL (75-110); TOTAL PROTEIN 7.5 g/dL (6.3-8.3)
--- NOTE | 2017-06-17 15:25 | CT ---
PROCEDURE: CT HEAD WITHOUT CONTRAST. HISTORY: Head injury COMPARISON: 11/27/2016 TECHNIQUE: Axial computed tomography images were obtained through the head/brain without intravenous contrast. Radiation dose: Total exam DLP = 975.45 mGy-cm. This CT exam was performed using one or more of the following dose reduction techniques: Automated exposure control, adjustment of the mA and/or kV according to patient size, and/or use of iterative reconstruction technique. FINDINGS: HEMORRHAGE: No intracranial hemorrhage. BRAIN: There are moderate chronic microangiopathic changes. There is no mass, mass effect or abnormal extra-axial fluid collection. VENTRICLES: There is mild age-related global parenchymal volume loss and proportionate enlargement of the ventricles and cortical sulci. There is a cavum septum pellucidum. CALVARIUM: There is no calvarial fracture or extracranial soft tissue swelling. PARANASAL SINUSES: Unremarkable as visualized. No significant inflammatory changes. MASTOID AIR CELLS: Unremarkable as visualized. No inflammatory changes. OTHER FINDINGS: None. IMPRESSION: No acute intracranial abnormality. Moderate chronic microangiopathic changes and mild age-related involutional changes.
[2017-06-17 15:50] LABS: ALCOHOL SERUM 362 mg/dl (0-10)
[2017-06-17 17:05] LABS: RBC URINE 3 /hpf (0-3); URINE BACTERIA RARE (<OCC); URINE BILIRUBIN NEGATIVE (NEGATIVE); URINE BLOOD 1+ (NEGATIVE); URINE COLOR Yellow (YELLOW); URINE GLUCOSE (UA) NORMAL (Normal); URINE KETONE NEGATIVE (NEGATIVE); URINE LEUKOCYTE ESTERASE NEG Leu/uL (Negative); URINE PROTEIN 1+ mg/dL (NEGATIVE); URINE UROBILINOGEN NORMAL mg/dL (0.2-1.0); WBC URINE 1 /hpf (0-5)
[2017-06-18 06:03] VITALS: BP 160/95; PULSE 81; RESP 16; TEMP 98; O2SAT 98
--- NOTE | 2017-06-18 11:02 | CARD ---
APPROVED REPORT EKG Measurement Heart [id number] <Conclusion> Normal sinus rhythm Normal ECG
== END 2017-06-18 05:45 | disposition home or self-care (01) ==
LOC: C.ER 14:07 → C.9OBSV 15:52
PROVIDERS: ADMIT Emergency Medicine; ATTEND Emergency Medicine
DX: F10.220 Alcohol dependence with intoxication, uncomplicated (principal); Y90.8 Blood alcohol level of 240 mg/100 ml or more; I10 Essential (primary) hypertension; F41.9 Anxiety disorder, unspecified; F32.9 Major depressive disorder, single episode, unspecified; S09.90XA Unspecified injury of head, initial encounter; W19.XXXA Unspecified fall, initial encounter
CPT/HCPCS: 70450; 80053; 80320; 80324; 80345; 80346; 80349; 80353; 80358; 80361; 81001; 83992; 85025; 93005; G0378

== ENCOUNTER 2017-06-20 15:38 | Emergency (ER) | payer MEDICAID ==
[2017-06-20 15:49] VITALS: BMI 22.9
[2017-06-20 16:02] VITALS: BP 115/80; PULSE 93; RESP 18; TEMP 97.9; O2SAT 97
--- NOTE | 2017-06-20 17:51 | C.PDOC ---
History Of Present Illness Prabhjot Francisco, a 61 year old male, who has a past medical history of mental illness is brought into the ED by ambulance for public intoxication. Patient is known in ED for similar episodes. Denies HI/SI ideations. Time Seen by Provider: 06/20/17 15:48 Chief Complaint (Nursing): Substance Abuse History Per: Patient History/Exam Limitations: no limitations Modifying Factor(s): Alcohol Past Medical History Reviewed: Historical Data, Nursing Documentation, Vital Signs Vital Signs: Last Vital Signs Temp 97.9 F 06/20/17 16:00 Pulse 93 H 06/20/17 16:00 Resp 18 06/20/17 16:00 BP 115/80 06/20/17 16:00 Pulse Ox 97 06/20/17 18:44 - Medical History PMH: Anxiety, Depression, HTN Denies: Diabetes, Hepatitis, HIV, Chronic Kidney Disease, Seizures, Sexually Transmitted Disease - [facility] Procedures ALCOHOL DETOXIFICATION (07/07/15) DETOXIFICATION SERVICES FOR SUBSTANCE ABUSE TREATMENT (04/17/17) GROUP RETANNED LEATHER ROLLER FOR SUBSTANCE ABUSE TREATMENT, PSYCHOEDUCATION (03/17/16) INDIV PSYCHOTHERAPY FOR SUBSTANCE ABUSE TREATMENT, SUPPORT (04/17/17) INDIV PSYCHOTHERAPY FOR SUBSTANCE ABUSE, COGNITIV BEHAVIORAL (04/17/17) INDIV PSYCHOTHERAPY FOR SUBSTANCE ABUSE, PSYCHOEDUCATION (04/17/17) INDIVIDUAL PSYCHOTHERAPY, SUPPORTIVE (02/19/17) INJECT/INFUSE NEC (04/27/14) MEASUREMENT OF ARTERIAL PRESSURE, PERIPHERAL, PERC APPROACH (03/17/16) MEASUREMENT OF CARDIAC RHYTHM, PERCUTANEOUS APPROACH (03/17/16) MEDICATION MANAGEMENT (02/19/17) ULTRASONOGRAPHY OF RIGHT AND LEFT HEART, TRANSESOPHAGEAL (03/17/16) Family History: States: Unknown Family Hx - Social History Hx Tobacco Use: No Hx Alcohol Use: Yes Hx Substance Use: No (alcoholism) - Immunization History Hx Tetanus Toxoid Vaccination: Yes Hx Influenza Vaccination: Yes (2017) Hx Pneumococcal Vaccination: No (unknown) Review Of Systems Except As Marked, All Systems Reviewed And Found Negative. Constitutional: Positive for: Other (Alcohol intoxication) Psych: Negative for: Suicidal ideation (Denies HI/SI ideations) Physical Exam - Physical Exam Appears: Well, No Acute Distress (large drunk disheveled black male.) Skin: Normal Color, Warm, Dry Head: Atraumatic Eye(s): bilateral: Normal Inspection, PERRL, EOMI Ear(s): Bilateral: Normal Nose: Normal Oral Mucosa: Moist, Other (Alcohol on breath) Tongue: Normal Appearing Lips: Normal Appearing Teeth: Normal Dentition Gingiva: Normal Appearing Throat: Normal Neck: Normal, Normal ROM, Supple Chest: No Deformity, No Tenderness Cardiovascular: Rhythm Regular, No Murmur Respiratory: Normal Breath Sounds, No Wheezing Gastrointestinal/Abdominal: Normal Exam, Bowel Sounds, Soft, No Tenderness, No Guarding, No Rebound Back: Normal Inspection, No CVA Tenderness Extremity: Normal ROM, No Tenderness, No Pedal Edema, No Deformity, No Swelling Neurological/Psych: Oriented x3, Normal Speech, Normal Cognition ED Course And Treatment O2 Sat by Pulse Oximetry: 97 (RA) Pulse Ox Interpretation: Normal Reevaluation Time: 20:15 Reassessment Condition: Improved Medical Decision Making Medical Decision Makin Initial Impression: 61 year old male presenting with ETOH intoxication Initial Plan: * typical alcohol abuse, malingering, anti-social behavior. Disposition Doctor Will See Patient In The: Office Counseled Patient/Family Regarding: Studies Performed, Diagnosis - Disposition Disposition: HOME/ ROUTINE Disposition Time: 20:16 Condition: GOOD Forms: [facility] (Mauritian) - Clinical Impression Clinical Impression: Alcoholic intoxication - Scribe Statement Anastasiia Heath All medical record entries made by the Scribe were at my direction and personally dictated by me. I have reviewed the chart and agree that the record accurately reflects my personal performance of the history, physical exam, medical decision making, and the department course for this patient. I have also personally directed, reviewed, and agree with the discharge instructions and disposition.
== END 2017-06-20 20:25 | disposition home or self-care (01) ==
LOC: C.ER 15:38
DX: F10.129 Alcohol abuse with intoxication, unspecified (principal)

== ENCOUNTER 2017-06-27 17:09 | Observation (INO) | payer MEDICAID ==
[2017-06-27 17:10] VITALS: BMI 22.9
--- NOTE | 2017-06-27 17:52 | C.PDOC ---
History Of Present Illness <Sarah Hill - Last Filed: 06/27/17 18:40> <Maria Luz Sanchez - Last Filed: 06/28/17 06:41> <Leslie Sarabia - Last Filed: 06/28/17 08:42> Prabhjot Francisco, a 61 year old male, is brought into the ED for ETOH intoxication and head trauma. As per EMS, the patient fell and hit his head. Patient was brought into the ED with a collar on. No bruises noted. As per EMS patient reports SI (Sarah Hill) - HPI History Per: Patient History/Exam Limitations: no limitations Onset/Duration Of Symptoms: Hrs Severity: Mild Recent travel outside of the [place]: No - Fall Fall:Prior To Injury: Tripped <Sarah Hill - Last Filed: 06/27/17 18:40> <Maria Luz Sanchez - Last Filed: 06/28/17 06:41> <Leslie Sarabia - Last Filed: 06/28/17 08:42> - HPI Time Seen by Provider: 06/27/17 17:33 Chief Complaint (Nursing): Trauma Past Medical History Reviewed: Historical Data, Nursing Documentation, Vital Signs - Medical History PMH: Anxiety, Depression, HTN Denies: Diabetes, Hepatitis, HIV, Chronic Kidney Disease, Seizures, Sexually Transmitted Disease Other PMH: alcohol abuse Family History: States: Unknown Family Hx - Social History Hx Tobacco Use: No Hx Alcohol Use: Yes Hx Substance Use: No (alcoholism) - Immunization History Hx Tetanus Toxoid Vaccination: Yes Hx Influenza Vaccination: Yes (2017) Hx Pneumococcal Vaccination: No (unknown) <Sarah Hill - Last Filed: 06/27/17 18:40> Review Of Systems Except As Marked, All Systems Reviewed And Found Negative. Neurological: Positive for: Other Psych: Positive for: Other (Intoxicated) <Sarah Hill - Last Filed: 06/27/17 18:40> Physical Exam - Physical Exam Appears: Well, Non-toxic, No Acute Distress Skin: Normal Color, Warm, Dry Head: Atraumatic, Normacephalic Eye(s): bilateral: Normal Inspection, PERRL, EOMI Nose: Normal Oral Mucosa: Moist Tongue: Normal Appearing Lips: Normal Appearing Teeth: Normal Dentition Gingiva: Normal Appearing Throat: Normal Neck: Normal, Normal ROM, Supple Cardiovascular: Rhythm Regular, No Murmur Respiratory: Normal Breath Sounds, No Rales, No Rhonchi, No Wheezing Gastrointestinal/Abdominal: Normal Exam, Bowel Sounds, Soft, No Tenderness, No Guarding, No Rebound Back: Normal Inspection, No CVA Tenderness Extremity: Normal ROM, No Tenderness, No Deformity, No Swelling Neurological/Psych: Oriented x3, Normal Speech, Normal Cognition <Sarah Hill Last Filed: 06/27/17 18:40> ED Course And Treatment O2 Sat by Pulse Oximetry: 95 (RA) Pulse Ox Interpretation: Normal - CT Scan/US No standard instances Other Rad Studies (CT/US): Read By Radiologist, Radiology Report Reviewed CT/US Interpretation: FINDINGS: HEMORRHAGE: No intracranial hemorrhage. BRAIN : No mass effect or edema. Again seen is dyhe-op-totrioru atrophy and white matter chronic microvascular ischemic disease. VENTRICLES: Unremarkable. No hydrocephalus. CALVARIUM: Unremarkable. PARANASAL SINUSES: Moderate left maxillary sinus mucosal thickening is noted. MASTOID AIR CELLS: Unremarkable as visualized. No inflammatory changes. OTHER FINDINGS: None. IMPRESSION: No evidence of acute intracranial hemorrhage intracranial collection mass effect or midline shift. Fnlh-fo-fwjalgmb atrophy and zyvb-ye-nvmewtby chronic microvascular ischemic changes again noted. FINDINGS: VERTEBRAE: No fracture. Normal alignment. No destructive bony lesion. DISCS/SPINAL CANAL/ NEURAL FORAMINA: Moderate degenerative changes are seen PE multilevel osteophyte disc bulging complex more prominent at C6-C7. Narrowing of the entered vertebral disc is space also more prominent at C6-C7. PARASPINAL SOFT TISSUES: Unremarkable. OTHER FINDINGS: Almost complete opacification of the left maxillary sinus. IMPRESSION: No evidence of acute fracture or subluxation. Moderate degenerative changes and spondylosis at the cervical spine more prominent at the mid and lower portion. Progress Note: Patient arrived vis BLS with c-collar in place. Patient as per BLS expressed he had SI thoughts. Patient intoxicated Alcohol 442. C-Collar removed. Sleeping in no distress. log pond worker notified and will evaluate when sober Reassessment Condition: Improved <Sarah Hill Filed: 06/27/17 18:40> - Laboratory Results Result Diagrams: 06/27/17 19:31 06/27/17 19:31 <Maria Luz Sanchez - Last Filed: 06/28/17 06:41> - Laboratory Results Result Diagrams: 06/27/17 19:31 06/27/17 19:31 <Leslie Sarabia - Last Filed: 06/28/17 08:42> Medical Decision Making <Sarah Hill - Last Filed: 06/27/17 18:40> <Maria Luz Sanchez - Last Filed: 06/28/17 06:41> <Leslie Sarabia - Last Filed: 06/28/17 08:42> Medical Decision Makin Initial Impression: 61 year old male presenting with ETOH intoxication and head trauma, Patient seen frequently in ED for intoxication Initial Plan: * CT Cervical Spine w/o Contrast * CT head w/o Contrast, * Alcohol Serum * Accucheck * Reevaluation (Sarah Hill) Disposition - Disposition Disposition Time: 19:00 - POA Present On Arrival: None <Sarah Hill - Last Filed: 06/27/17 18:40> <Maria Luz Sanchez - Last Filed: 06/28/17 06:41> <Leslie Sarabia - Last Filed: 06/28/17 08:42> - Disposition Disposition: HOME/ ROUTINE Condition: STABLE - Clinical Impression Clinical Impression: Concussion injury of brain, Alcohol use disorder Critical Care Time - Scribe Statement The provider has reviewed the documentation as recorded by the Scribe <Sarah Hill - Last Filed: 06/27/17 18:40> <Maria Luz Sanchez - Last Filed: 06/28/17 06:41> <Leslie Sarabia - Last Filed: 06/28/17 08:42> - Scribe Statement Anastasiia Heath All medical record entries made by the Scribe were at my direction and personally dictated by me. I have reviewed the chart and agree that the record accurately reflects my personal performance of the history, physical exam, medical decision making, and the department course for this patient. I have also personally directed, reviewed, and agree with the discharge instructions and disposition. (Sarah Hill) Physician Patient Turnover Patient Signed Over To: Maria Luz Sanchez Handoff Comments: pending sobriety and possible crisis evaluation <Sarah Hill - Last Filed: 06/27/17 18:40> Patient Signed Over To: Leslie Sarabia Handoff Comments: pending evaluation by dr messer in am <Maria Luz Sanchez - Last Filed: 06/28/17 06:41> Addendum <Sarah Hill - Last Filed: 06/27/17 18:40> <Leslie Sarabia - Last Filed: 06/28/17 08:42> Addendum: 06/28/17 08:38 Patient endorsed to me by Dr. Sanchez at the end of his shift. Patient homeless, alcoholic, states he is suicidal. Patient fell yesterday, had negative head and CSpine CT. Patient pending re-evaluation by psych to eval suicidality. On re-eval patient awake, states he doesn't feel like talking. States he needs help because he is homeless, does not want to be in a retirement. Patient with 12 visits this year for alcohol related complaints. ETOH via breathalizer 150. (Leslie Sarabia)
--- NOTE | 2017-06-27 18:29 | CT ---
PROCEDURE: CT HEAD WITHOUT CONTRAST. HISTORY: R/O Bleed COMPARISON: Comparison is made to 06/17/2017. TECHNIQUE: Axial computed tomography images were obtained through the head/brain without intravenous contrast. Radiation dose: Total exam DLP = 1115.35 mGy-cm. This CT exam was performed using one or more of the following dose reduction techniques: Automated exposure control, adjustment of the mA and/or kV according to patient size, and/or use of iterative reconstruction technique. FINDINGS: HEMORRHAGE: No intracranial hemorrhage. BRAIN: No mass effect or edema. Again seen is prtu-my-qabakhue atrophy and white matter chronic microvascular ischemic disease. VENTRICLES: Unremarkable. No hydrocephalus. CALVARIUM: Unremarkable. PARANASAL SINUSES: Moderate left maxillary sinus mucosal thickening is noted. MASTOID AIR CELLS: Unremarkable as visualized. No inflammatory changes. OTHER FINDINGS: None. IMPRESSION: No evidence of acute intracranial hemorrhage intracranial collection mass effect or midline shift. Jyon-zy-pbsrjzyc atrophy and qmla-ou-qibjrlll chronic microvascular ischemic changes again noted.
--- NOTE | 2017-06-27 18:39 | CT ---
PROCEDURE: CT Cervical Spine without contrast HISTORY: Evaluate for fracture COMPARISON: None available. TECHNIQUE: Axial computed tomography images were obtained of the cervical spine without the use of intravenous contrast. Coronal and sagittal reformatted images were created and reviewed. Radiation dose: Total exam DLP = 520.01 mGy-cm. This CT exam was performed using one or more of the following dose reduction techniques: Automated exposure control, adjustment of the mA and/or kV according to patient size, and/or use of iterative reconstruction technique. FINDINGS: VERTEBRAE: No fracture. Normal alignment. No destructive bony lesion. DISCS/SPINAL CANAL/NEURAL FORAMINA: Moderate degenerative changes are seen PE multilevel osteophyte disc bulging complex more prominent at C6-C7. Narrowing of the entered vertebral disc is space also more prominent at C6-C7 PARASPINAL SOFT TISSUES: Unremarkable. OTHER FINDINGS: Almost complete opacification of the left maxillary sinus. IMPRESSION: No evidence of acute fracture or subluxation. Moderate degenerative changes and spondylosis at the cervical spine more prominent at the mid and lower portion.
[2017-06-27] MEDS ORDERED: Sodium Chloride 0.9% 1,000 ML IV ONE (19:14)
[2017-06-27] MEDS ORDERED: Sodium Chloride 0.9% 1,000 ML ONE (19:33)
[2017-06-27 19:37] LABS: BASO % 0.6 % (0.0-2.0); EOS # 0.1 K/uL (0.0-0.7); EOS % 1.2 % (0.0-4.0); HEMATOCRIT 35.3 % (35.0-51.0); LYMPH % 40.3 % (20.0-40.0); MEAN CELL VOLUME 96.8 fL (80.0-94.0); MEAN CORPUSCULAR HEMOGLOBIN 32.2 pg (27.0-31.0); MEAN CORPUSCULAR HGB CONC 33.3 g/dL (33.0-37.0); MEAN PLATELET VOLUME 6.7 fL (7.2-11.7); MONO # 0.4 K/uL (0.0-0.8); NRBC % 0.1 % (0.0-2.0); WHITE BLOOD COUNT 4.9 K/uL (4.8-10.8)
[2017-06-27 19:43] LABS: CHLORIDE 110 mmol/L (98-107); POTASSIUM 3.4 mmol/L (3.6-5.2); SODIUM 149 mmol/L (132-148)
[2017-06-27 19:45] LABS: ALB/GLOB RATIO 0.9 (1.0-2.1); AST/SGOT 50 U/L (17-59); BILIRUBIN,TOTAL 0.4 mg/dL (0.2-1.3); CARBON DIOXIDE 24 mmol/L (22-30); GFR AFRICAN-AMERICAN > 60; TOTAL PROTEIN 6.9 g/dL (6.3-8.3)
[2017-06-27 19:46] LABS: ALKALINE PHOSPHATASE 87 U/L (38-126); ALT/SGPT 45 U/L (21-72); BLOOD UREA NITROGEN 10 mg/dL (9-20); CALCIUM 8.4 mg/dl (8.6-10.4); GLUCOSE,RANDOM 84 mg/dL (75-110)
[2017-06-27 20:04] LABS: ALCOHOL SERUM 404 mg/dl (0-10)
--- NOTE | 2017-06-28 12:48 | RAD ---
PROCEDURE: CHEST RADIOGRAPH, 1 VIEW HISTORY: SOB COMPARISON: 12/11/2016. FINDINGS: LUNGS: Clear. PLEURA: No pneumothorax or pleural fluid seen. CARDIOVASCULAR: No radiographic findings to suggest acute or significant cardiovascular disease. OSSEOUS STRUCTURES: No significant abnormalities. VISUALIZED UPPER ABDOMEN: Normal. OTHER FINDINGS: None. IMPRESSION: No active disease. No acute/significant interval changes. No preliminary report provided by emergency department personnel.
[2017-06-28 13:24] VITALS: RESP 20; O2SAT 98
[2017-06-28 13:37] LABS: RBC URINE < 1 /hpf (0-3); URINE BILIRUBIN NEGATIVE (NEGATIVE); URINE BLOOD NEGATIVE (NEGATIVE); URINE COLOR Yellow (YELLOW); URINE GLUCOSE (UA) NORMAL (Normal); URINE KETONE NEGATIVE (NEGATIVE); URINE LEUKOCYTE ESTERASE NEG Leu/uL (Negative); URINE PROTEIN NEGATIVE (NEGATIVE); URINE UROBILINOGEN NORMAL mg/dL (0.2-1.0); WBC URINE < 1 /hpf (0-5)
[2017-06-28 16:13] VITALS: BP 190/110; PULSE 52; TEMP 98.3
--- NOTE | 2017-06-29 20:57 | CARD ---
APPROVED REPORT EKG Measurement Heart [id number] MA [id number] [id number] <Conclusion> Sinus bradycardia Otherwise normal ECG
== END 2017-06-28 16:43 | disposition home or self-care (01) ==
LOC: C.ER 17:09 → C.9OBSV 18:34
PROVIDERS: ADMIT Emergency Medicine; ATTEND Emergency Medicine
DX: F10.220 Alcohol dependence with intoxication, uncomplicated (principal); Y90.8 Blood alcohol level of 240 mg/100 ml or more; I10 Essential (primary) hypertension; T14.90 Injury, unspecified; W18.30XA Fall on same level, unspecified, initial encounter; Z59.0 Homelessness
CPT/HCPCS: 70450; 71010; 72125; 80053; 80320; 80324; 80345; 80346; 80349; 80353; 80358; 80361; 81001; 83992; 85025; 96360; J7040

== ENCOUNTER 2017-07-01 17:38 | Observation (INO) | payer MEDICAID ==
[2017-07-01 17:38] VITALS: BMI 22.9
--- NOTE | 2017-07-01 18:37 | C.PDOC ---
History Of Present Illness 61 y/o male presents to ED with acute ETOH intoxication and is requesting detox. At ED patient is noted to be very intoxicated and is requesting food stating he "wants a sandwich". Patient denies recent injury, fever, chills, nausea, vomiting or any other complaints at this time. Time Seen by Provider: 07/01/17 18:04 Chief Complaint (Nursing): Substance Abuse History Per: Patient History/Exam Limitations: no limitations Onset/Duration Of Symptoms: Days Current Symptoms Are (Timing): Still Present Suicide/Self Injury Attempted (Context): None Modifying Factor(s): Alcohol Past Medical History Reviewed: Historical Data, Nursing Documentation, Vital Signs Vital Signs: Last Vital Signs Temp 98.6 F 07/01/17 23:25 Pulse 74 07/01/17 23:25 Resp 16 07/01/17 23:25 BP 133/81 07/01/17 23:25 Pulse Ox 95 07/01/17 23:25 - Medical History PMH: Anxiety, Depression, HTN - [facility] Procedures ALCOHOL DETOXIFICATION (07/07/15) DETOXIFICATION SERVICES FOR SUBSTANCE ABUSE TREATMENT (04/17/17) GROUP ORGAN TUNER ELECTRONIC FOR SUBSTANCE ABUSE TREATMENT, PSYCHOEDUCATION (03/17/16) INDIV PSYCHOTHERAPY FOR SUBSTANCE ABUSE TREATMENT, SUPPORT (04/17/17) INDIV PSYCHOTHERAPY FOR SUBSTANCE ABUSE, COGNITIV BEHAVIORAL (04/17/17) INDIV PSYCHOTHERAPY FOR SUBSTANCE ABUSE, PSYCHOEDUCATION (04/17/17) INDIVIDUAL PSYCHOTHERAPY, SUPPORTIVE (02/19/17) INJECT/INFUSE NEC (04/27/14) MEASUREMENT OF ARTERIAL PRESSURE, PERIPHERAL, PERC APPROACH (03/17/16) MEASUREMENT OF CARDIAC RHYTHM, PERCUTANEOUS APPROACH (03/17/16) MEDICATION MANAGEMENT (02/19/17) ULTRASONOGRAPHY OF RIGHT AND LEFT HEART, TRANSESOPHAGEAL (03/17/16) Family History: States: Unknown Family Hx - Social History Hx Tobacco Use: No Hx Alcohol Use: Yes Hx Substance Use: No (alcoholism) - Immunization History Hx Tetanus Toxoid Vaccination: Yes Hx Influenza Vaccination: Yes (2017) Hx Pneumococcal Vaccination: No (unknown) Review Of Systems Except As Marked, All Systems Reviewed And Found Negative. Constitutional: Negative for: Fever, Chills Gastrointestinal: Negative for: Nausea, Vomiting Skin: Negative for: Rash Neurological: Positive for: Change in Speech Psych: Negative for: Anxiety Physical Exam - Physical Exam Appears: Other (ETOH on breath, intoxicated) Skin: Normal Color, Warm, Dry, No Rash Head: Atraumatic, Normacephalic Eye(s): bilateral: Normal Inspection Oral Mucosa: Moist Cardiovascular: Rhythm Regular Respiratory: Normal Breath Sounds, No Rales, No Rhonchi, No Wheezing Gastrointestinal/Abdominal: Soft, No Tenderness, No Guarding, No Rebound Neurological/Psych: Oriented x3, No Normal Speech (Slurred speech) Gait: Unsteady (Intoxicated) ED Course And Treatment O2 Sat by Pulse Oximetry: 95 (RA) Pulse Ox Interpretation: Normal Reevaluation Time: 00:42 Reassessment Condition: Unchanged (patient remains asleep in ED. Arousable but still with slurred speech.) Disposition - Disposition Disposition Time: 00:43 Condition: STABLE - Clinical Impression Clinical Impression: Alcoholic intoxication - Scribe Statement The provider has reviewed the documentation as recorded by the Scribwhit Lr All medical record entries made by the Scribe were at my direction and personally dictated by me. I have reviewed the chart and agree that the record accurately reflects my personal performance of the history, physical exam, medical decision making, and the department course for this patient. I have also personally directed, reviewed, and agree with the discharge instructions and disposition. Physician Patient Turnover Patient Signed Over To: Maria Luz Sanchez Handoff Comments: pending sobriety
[2017-07-01 23:27] VITALS: RESP 16
[2017-07-02 06:03] VITALS: BP 166/84; PULSE 86; TEMP 98.9; O2SAT 97
== END 2017-07-02 05:01 | disposition home or self-care (01) ==
LOC: C.ER 17:38 → C.9OBSV 19:27
PROVIDERS: ADMIT Emergency Medicine; ATTEND Emergency Medicine
DX: F10.229 Alcohol dependence with intoxication, unspecified (principal); I10 Essential (primary) hypertension; Y90.9 Presence of alcohol in blood, level not specified
CPT/HCPCS: 82948; G0378

== ENCOUNTER 2017-07-07 15:47 | Emergency (ER) | payer MEDICAID ==
[2017-07-07 15:48] VITALS: BMI 22.9
[2017-07-07 16:06] VITALS: BP 139/87; PULSE 98; RESP 20; TEMP 97.6; O2SAT 96
--- NOTE | 2017-07-07 16:15 | C.PDOC ---
History Of Present Illness 61 y/o male brought in by EMS for public alcohol intoxication. Patient is a chronic homeless alcoholic with multiple prior visits. Patient was evaluated for the same complaint June 27 and . Denies suicidal, homicidal ideation, or any somatic complaints at this time. Time Seen by Provider: 07/07/17 16:12 Chief Complaint (Nursing): Substance Abuse History Per: Patient History/Exam Limitations: no limitations Onset/Duration Of Symptoms: Hrs Current Symptoms Are (Timing): Still Present Suicide/Self Injury Attempted (Context): None Modifying Factor(s): Alcohol Severity: Mild Associated Symptoms: denies: Suicidal Thoughts, Suicidal Plan Recent travel outside of the [place]: No Additional History Per: Patient Past Medical History Reviewed: Historical Data, Nursing Documentation, Vital Signs Vital Signs: Last Vital Signs Temp 97.6 F 07/07/17 16:05 Pulse 98 H 07/07/17 16:05 Resp 20 07/07/17 16:05 BP 139/87 07/07/17 16:05 Pulse Ox 96 07/07/17 16:15 - Medical History PMH: Anxiety, Depression, HTN Denies: HIV, Chronic Kidney Disease, Seizures, Sexually Transmitted Disease - [facility] Procedures ALCOHOL DETOXIFICATION (07/07/15) DETOXIFICATION SERVICES FOR SUBSTANCE ABUSE TREATMENT (04/17/17) GROUP OPERATIONS SPECIALIST FOR SUBSTANCE ABUSE TREATMENT, PSYCHOEDUCATION (03/17/16) INDIV PSYCHOTHERAPY FOR SUBSTANCE ABUSE TREATMENT, SUPPORT (04/17/17) INDIV PSYCHOTHERAPY FOR SUBSTANCE ABUSE, COGNITIV BEHAVIORAL (04/17/17) INDIV PSYCHOTHERAPY FOR SUBSTANCE ABUSE, PSYCHOEDUCATION (04/17/17) INDIVIDUAL PSYCHOTHERAPY, SUPPORTIVE (02/19/17) INJECT/INFUSE NEC (04/27/14) MEASUREMENT OF ARTERIAL PRESSURE, PERIPHERAL, PERC APPROACH (03/17/16) MEASUREMENT OF CARDIAC RHYTHM, PERCUTANEOUS APPROACH (03/17/16) MEDICATION MANAGEMENT (02/19/17) ULTRASONOGRAPHY OF RIGHT AND LEFT HEART, TRANSESOPHAGEAL (03/17/16) Family History: States: Unknown Family Hx - Social History Hx Tobacco Use: No Hx Alcohol Use: Yes Hx Substance Use: No (alcoholism) - Immunization History Hx Tetanus Toxoid Vaccination: Yes Hx Influenza Vaccination: Yes (2017) Hx Pneumococcal Vaccination: No (unknown) Review Of Systems Except As Marked, All Systems Reviewed And Found Negative. Constitutional: Positive for: Other (Alcohol intoxication). Negative for: Fever , Chills, Weakness Eyes: Negative for: Vision Change ENT: Negative for: Throat Pain Cardiovascular: Negative for: Chest Pain, Palpitations Respiratory: Negative for: Cough, Shortness of Breath Gastrointestinal: Negative for: Abdominal Pain Skin: Negative for: Rash Psych: Negative for: Suicidal ideation, Other (HOmicidal ideation) Physical Exam - Physical Exam Appears: Non-toxic, No Acute Distress, Other (Alcohol intoxicated, (+) AOB) Skin: Warm, Dry Head: Atraumatic, Normacephalic Oral Mucosa: Moist Neck: Supple Cardiovascular: Rhythm Regular Respiratory: Normal Breath Sounds, No Rales, No Rhonchi, No Wheezing Gastrointestinal/Abdominal: Soft, No Tenderness Back: Normal Inspection, No CVA Tenderness Neurological/Psych: Oriented x3, Normal Speech, Normal Cognition, Other (No focal deficit) Gait: Steady ED Course And Treatment O2 Sat by Pulse Oximetry: 96 (RA) Pulse Ox Interpretation: Normal Medical Decision Making Medical Decision Making: Impression: 61 y/o male brought in by EMS for public intoxication. Plans: * ED Obs * Reassess typical etoh abuse, malingering seen for same.06/27, 07/01 no acute issues. ED OBSERVATION Date of observation admission: 07/07/17 Time of observation admission: 20:18 - Observation admission statement Patient is being placed in observation because:: Acute alcohol intoxication - Goals of Observation Goals of observation are:: sobriety Disposition Doctor Will See Patient In The: Office Counseled Patient/Family Regarding: Studies Performed, Diagnosis - Disposition Referrals: Alcoholics Anonymous [Outside] [place] [facility] [place] [Outside] [facility] [Outside] [place] [facility] [Outside] Disposition: HOME/ ROUTINE Disposition Time: 16:15 Condition: GOOD Instructions: Abuse of Alcohol (ED) Forms: [facility] (Icelandic) - Clinical Impression Clinical Impression: Homelessness, Alcohol abuse - Scribe Statement The provider has reviewed the documentation as recorded by the Scribe Diamond castillo All medical record entries made by the Scribe were at my direction and personally dictated by me. I have reviewed the chart and agree that the record accurately reflects my personal performance of the history, physical exam, medical decision making, and the department course for this patient. I have also personally directed, reviewed, and agree with the discharge instructions and disposition.
== END 2017-07-07 16:59 | disposition home or self-care (01) ==
LOC: C.ER 15:47
DX: F10.129 Alcohol abuse with intoxication, unspecified (principal); Y90.9 Presence of alcohol in blood, level not specified; Z59.0 Homelessness

== ENCOUNTER 2017-07-08 20:35 | Observation (INO) | payer MEDICAID ==
[2017-07-08 20:35] VITALS: BMI 22.9
--- NOTE | 2017-07-08 21:03 | C.PDOC ---
History Of Present Illness 61 y/o male presents to the ER for acute alcohol intoxication. Patient admits to drinking alcohol tonight. Patient has multiple prior visits for the same complaint. Denies suicidal ideation, homicidal ideation, or somatic complaints. Time Seen by Provider: 07/08/17 20:44 Chief Complaint (Nursing): Substance Abuse History Per: Patient History/Exam Limitations: no limitations Onset/Duration Of Symptoms: Hrs Current Symptoms Are (Timing): Still Present Suicide/Self Injury Attempted (Context): None Modifying Factor(s): Alcohol Severity: Mild Associated Symptoms: denies: Suicidal Thoughts, Suicidal Plan Recent travel outside of the [place]: No Additional History Per: Patient Past Medical History Reviewed: Historical Data, Nursing Documentation, Vital Signs Vital Signs: Last Vital Signs Temp 98.1 F 07/08/17 20:37 Pulse 103 H 07/08/17 20:37 Resp 16 07/08/17 20:37 BP 143/96 H 07/08/17 20:37 Pulse Ox 98 07/08/17 21:03 - Medical History PMH: Anxiety, Depression, HTN Denies: HIV, Chronic Kidney Disease, Seizures, Sexually Transmitted Disease - [facility] Procedures ALCOHOL DETOXIFICATION (07/07/15) DETOXIFICATION SERVICES FOR SUBSTANCE ABUSE TREATMENT (04/17/17) GROUP EXECUTIVE CYBER LEADER FOR SUBSTANCE ABUSE TREATMENT, PSYCHOEDUCATION (03/17/16) INDIV PSYCHOTHERAPY FOR SUBSTANCE ABUSE TREATMENT, SUPPORT (04/17/17) INDIV PSYCHOTHERAPY FOR SUBSTANCE ABUSE, COGNITIV BEHAVIORAL (04/17/17) INDIV PSYCHOTHERAPY FOR SUBSTANCE ABUSE, PSYCHOEDUCATION (04/17/17) INDIVIDUAL PSYCHOTHERAPY, SUPPORTIVE (02/19/17) INJECT/INFUSE NEC (04/27/14) MEASUREMENT OF ARTERIAL PRESSURE, PERIPHERAL, PERC APPROACH (03/17/16) MEASUREMENT OF CARDIAC RHYTHM, PERCUTANEOUS APPROACH (03/17/16) MEDICATION MANAGEMENT (02/19/17) ULTRASONOGRAPHY OF RIGHT AND LEFT HEART, TRANSESOPHAGEAL (03/17/16) Family History: States: Unknown Family Hx - Social History Hx Tobacco Use: No Hx Alcohol Use: Yes Hx Substance Use: No (alcoholism) - Immunization History Hx Tetanus Toxoid Vaccination: Yes Hx Influenza Vaccination: Yes (2017) Hx Pneumococcal Vaccination: No (unknown) Review Of Systems Except As Marked, All Systems Reviewed And Found Negative. Constitutional: Positive for: Other (Alcohol intoxication) Psych: Negative for: Suicidal ideation, Other (Homicidal ideation) Physical Exam - Physical Exam Appears: Non-toxic, No Acute Distress, Other (Alcohol intoxicated, (+) AOB) Skin: Warm, Dry Head: Atraumatic, Normacephalic Neck: Supple Cardiovascular: Rhythm Regular Respiratory: Normal Breath Sounds, No Rales, No Rhonchi, No Wheezing Gastrointestinal/Abdominal: Soft, No Tenderness Back: Normal Inspection, No CVA Tenderness Neurological/Psych: Oriented x3 (Awake and alert) ED Course And Treatment O2 Sat by Pulse Oximetry: 98 (RA) Pulse Ox Interpretation: Normal Medical Decision Making Medical Decision Making: Impression: 61 y/o male presents to the ER for acute alcohol intoxication. Admits to alcohol use tonight. Plans: * ED Obs ED OBSERVATION Date of observation admission: 07/08/17 Time of observation admission: 21:03 - Observation admission statement Patient is being placed in observation because:: Acute alcohol intoxication - Goals of Observation Goals of observation are:: Sobriety - Progress Note Progress Note: 07/09/17 00:49 patient sleeping quietly Disposition - Disposition Disposition Time: 00:50 Condition: STABLE - Clinical Impression Clinical Impression: Alcohol intoxication - Scribe Statement The provider has reviewed the documentation as recorded by the Scribe Diamond castillo All medical record entries made by the Scribe were at my direction and personally dictated by me. I have reviewed the chart and agree that the record accurately reflects my personal performance of the history, physical exam, medical decision making, and the department course for this patient. I have also personally directed, reviewed, and agree with the discharge instructions and disposition. Physician Patient Turnover Patient Signed Over To: Pillo Morales Handoff Comments: pending sobriety
[2017-07-09 05:35] VITALS: BP 148/90; PULSE 76; RESP 18; TEMP 97.7; O2SAT 94
== END 2017-07-09 05:55 | disposition home or self-care (01) ==
LOC: C.ER 20:35 → C.9OBSV 21:04
PROVIDERS: ADMIT Emergency Medicine; ATTEND Emergency Medicine
DX: F10.129 Alcohol abuse with intoxication, unspecified (principal); I10 Essential (primary) hypertension; Y90.9 Presence of alcohol in blood, level not specified
CPT/HCPCS: 82948; G0378

== ENCOUNTER 2017-07-09 13:05 | Observation (INO) | payer MEDICAID ==
[2017-07-09 13:06] VITALS: BMI 22.9
--- NOTE | 2017-07-09 13:40 | C.PDOC ---
History Of Present Illness Pt was BIBEMS due to public alcohol intoxication. Time Seen by Provider: 07/09/17 13:19 Chief Complaint (Nursing): Substance Abuse History Per: Patient, EMS History/Exam Limitations: intoxication Onset/Duration Of Symptoms: Unknown (today) Current Symptoms Are (Timing): Still Present Suicide/Self Injury Attempted (Context): None Modifying Factor(s): Alcohol Severity: Moderate Associated Symptoms: denies: Suicidal Thoughts, Suicidal Plan Additional History Per: Prior Records Past Medical History Reviewed: Historical Data, Nursing Documentation, Vital Signs Vital Signs: Last Vital Signs Temp 98.7 F 07/09/17 16:00 Pulse 80 07/09/17 16:00 Resp 18 07/09/17 16:00 BP 163/103 H 07/09/17 16:00 Pulse Ox 97 07/09/17 16:00 - Medical History PMH: Anxiety, Depression, HTN Other PMH: Alcohol abuse - [facility] Procedures ALCOHOL DETOXIFICATION (07/07/15) DETOXIFICATION SERVICES FOR SUBSTANCE ABUSE TREATMENT (04/17/17) GROUP COACH MECHANIC FOR SUBSTANCE ABUSE TREATMENT, PSYCHOEDUCATION (03/17/16) INDIV PSYCHOTHERAPY FOR SUBSTANCE ABUSE TREATMENT, SUPPORT (04/17/17) INDIV PSYCHOTHERAPY FOR SUBSTANCE ABUSE, COGNITIV BEHAVIORAL (04/17/17) INDIV PSYCHOTHERAPY FOR SUBSTANCE ABUSE, PSYCHOEDUCATION (04/17/17) INDIVIDUAL PSYCHOTHERAPY, SUPPORTIVE (02/19/17) INJECT/INFUSE NEC (04/27/14) MEASUREMENT OF ARTERIAL PRESSURE, PERIPHERAL, PERC APPROACH (03/17/16) MEASUREMENT OF CARDIAC RHYTHM, PERCUTANEOUS APPROACH (03/17/16) MEDICATION MANAGEMENT (02/19/17) ULTRASONOGRAPHY OF RIGHT AND LEFT HEART, TRANSESOPHAGEAL (03/17/16) Family History: States: Unknown Family Hx - Social History Hx Tobacco Use: No Hx Alcohol Use: Yes Hx Substance Use: No (alcoholism) - Immunization History Hx Tetanus Toxoid Vaccination: Yes Hx Influenza Vaccination: Yes (2017) Hx Pneumococcal Vaccination: No (unknown) Review Of Systems Review Of Systems: ROS cannot be obtained secondary to pt's inabilty to answer questions. Physical Exam - Physical Exam Appears: Non-toxic, No Acute Distress, Other (AOB, intoxicated) Skin: Normal Color, Warm, Dry Head: Atraumatic, Normacephalic Eye(s): bilateral: PERRL Neck: Normal ROM, No Midline Cervical Tenderness, No Step Off Deformity, Supple Cardiovascular: Rhythm Regular Respiratory: Normal Breath Sounds, No Accessory Muscle Use Gastrointestinal/Abdominal: Soft Extremity: Normal ROM, No Deformity Neurological/Psych: Eyes Open With Command, Slow To Respond With Command, Other (Moving all extremities) Gait: Unable To Assess ED Course And Treatment O2 Sat by Pulse Oximetry: 96 Pulse Ox Interpretation: Normal ED OBSERVATION Discharge: Yes Date of observation admission: 07/09/17 Time of observation admission: 13:30 - Observation admission statement Patient is being placed in observation because:: Alcohol intoxication. - Goals of Observation Goals of observation are:: Sobriety. - Progress Note Progress Note: 07/09/17 18:12 I was informed by the staff that the pt had walked out during observation. Disposition - Disposition Disposition: ELOPEMENT - ER ONLY Disposition Time: 18:13 Condition: UNKNOWN - Clinical Impression Clinical Impression: Patient left before treatment completed, Alcohol abuse
[2017-07-09 16:01] VITALS: BP 163/103; PULSE 80; RESP 18; TEMP 98.7
[2017-07-09 18:13] VITALS: O2SAT 96
== END 2017-07-09 18:13 | disposition home or self-care (01) ==
LOC: C.ER 13:05 → C.9OBSV 13:40
PROVIDERS: ADMIT Emergency Medicine; ATTEND Emergency Medicine
DX: F10.229 Alcohol dependence with intoxication, unspecified (principal); I10 Essential (primary) hypertension
CPT/HCPCS: 82948; G0378

== ENCOUNTER 2017-07-13 09:12 | Emergency (ER) | payer MEDICAID ==
[2017-07-13 09:12] VITALS: BMI 22.9
[2017-07-13 09:17] VITALS: TEMP 98
[2017-07-13] MEDS ORDERED: Sodium Chloride 0.9% 1,000 ML IV ONE (09:53)
[2017-07-13] MEDS ORDERED: Sodium Chloride 0.9% 1,000 ML ONE (10:08)
[2017-07-13 10:14] LABS: BASO # 0.1 K/uL (0.0-0.2); BASO % 1.2 % (0.0-2.0); EOS % 0.3 % (0.0-4.0); HEMATOCRIT 33.4 % (35.0-51.0); LYMPH # 0.6 K/uL (1.0-4.3); LYMPH % 12.7 % (20.0-40.0); MEAN CELL VOLUME 97.9 fL (80.0-94.0); MEAN CORPUSCULAR HEMOGLOBIN 32.9 pg (27.0-31.0); MEAN CORPUSCULAR HGB CONC 33.6 g/dL (33.0-37.0); MEAN PLATELET VOLUME 6.5 fL (7.2-11.7); MONO # 0.2 K/uL (0.0-0.8); MONO % 3.9 % (0.0-10.0); RED CELL DISTRIBUTION WIDTH 16.8 % (11.5-14.5); WHITE BLOOD COUNT 5.1 K/uL (4.8-10.8)
[2017-07-13 10:46] LABS: CHLORIDE 106 mmol/L (98-107); POTASSIUM 3.7 mmol/L (3.6-5.2); SODIUM 145 mmol/L (132-148)
[2017-07-13 10:48] LABS: BILIRUBIN,TOTAL 0.8 mg/dL (0.2-1.3); GFR AFRICAN-AMERICAN > 60
[2017-07-13 10:49] LABS: ALKALINE PHOSPHATASE 76 U/L (38-126); ALT/SGPT 48 U/L (21-72); AST/SGOT 69 U/L (17-59); BLOOD UREA NITROGEN 23 mg/dL (9-20); CALCIUM 8.2 mg/dl (8.6-10.4); CARBON DIOXIDE 21 mmol/L (22-30); GLUCOSE,RANDOM 75 mg/dL (75-110); TOTAL PROTEIN 6.8 g/dL (6.3-8.3)
--- NOTE | 2017-07-13 11:04 | C.PDOC ---
History Of Present Illness 61 year old male presents to the ED with complaints of burning epigastric pain with associated nausea since this morning. Patient admits he is a daily drinker of alcohol, and last drink was yesterday at 9pm. He denies vomiting, diarrhea, chest pain, shortness of breath, fever, dysuria/hematuria.. Time Seen by Provider: 07/13/17 09:38 Chief Complaint (Nursing): Abdominal Pain History Per: Patient History/Exam Limitations: no limitations Onset/Duration Of Symptoms: Hrs Current Symptoms Are (Timing): Still Present Severity: Mild Location Of Pain/Discomfort: Epigastric Radiation Of Pain To:: None Quality Of Discomfort: Burning, "Pain" Associated Symptoms: Nausea. denies: Fever, Chills, Vomiting Additional History Per: Prior Records Past Medical History Reviewed: Historical Data, Nursing Documentation, Vital Signs Vital Signs: Last Vital Signs Temp 98.0 F 07/13/17 09:16 Pulse 75 07/13/17 13:14 Resp 16 07/13/17 13:14 BP 156/97 H 07/13/17 13:14 Pulse Ox 96 07/13/17 13:14 - Medical History PMH: Anxiety, Depression, HTN - [facility] Procedures ALCOHOL DETOXIFICATION (07/07/15) DETOXIFICATION SERVICES FOR SUBSTANCE ABUSE TREATMENT (04/17/17) GROUP COLLATING MACHINE OPERATOR FOR SUBSTANCE ABUSE TREATMENT, PSYCHOEDUCATION (03/17/16) INDIV PSYCHOTHERAPY FOR SUBSTANCE ABUSE TREATMENT, SUPPORT (04/17/17) INDIV PSYCHOTHERAPY FOR SUBSTANCE ABUSE, COGNITIV BEHAVIORAL (04/17/17) INDIV PSYCHOTHERAPY FOR SUBSTANCE ABUSE, PSYCHOEDUCATION (04/17/17) INDIVIDUAL PSYCHOTHERAPY, SUPPORTIVE (02/19/17) INJECT/INFUSE NEC (04/27/14) MEASUREMENT OF ARTERIAL PRESSURE, PERIPHERAL, PERC APPROACH (03/17/16) MEASUREMENT OF CARDIAC RHYTHM, PERCUTANEOUS APPROACH (03/17/16) MEDICATION MANAGEMENT (02/19/17) ULTRASONOGRAPHY OF RIGHT AND LEFT HEART, TRANSESOPHAGEAL (03/17/16) Family History: States: No Known Family Hx - Social History Hx Tobacco Use: No Hx Alcohol Use: Yes Hx Substance Use: No (alcoholism) - Immunization History Hx Tetanus Toxoid Vaccination: Yes Hx Influenza Vaccination: Yes (2017) Hx Pneumococcal Vaccination: No (unknown) Review Of Systems Except As Marked, All Systems Reviewed And Found Negative. Constitutional: Negative for: Fever, Chills Cardiovascular: Negative for: Chest Pain, Palpitations Respiratory: Negative for: Cough, Shortness of Breath Gastrointestinal: Positive for: Nausea, Abdominal Pain. Negative for: Vomiting , Diarrhea Skin: Negative for: Rash Neurological: Negative for: Headache, Dizziness Physical Exam - Physical Exam Appears: Well, Non-toxic, No Acute Distress Skin: Warm, Dry Head: Atraumatic Eye(s): bilateral: Normal Inspection, EOMI Oral Mucosa: Moist Neck: Supple Cardiovascular: Rhythm Regular Respiratory: Normal Breath Sounds, No Rales, No Rhonchi, No Wheezing Gastrointestinal/Abdominal: Bowel Sounds, Soft, Tenderness (mild epigastric tenderness to palpation), No Distention, No Guarding, No Rebound, Other ((-) Patrick's. (-) McBurney's. ) Back: No CVA Tenderness Neurological/Psych: Oriented x3 ED Course And Treatment - Laboratory Results Result Diagrams: 07/13/17 10:05 07/13/17 10:05 O2 Sat by Pulse Oximetry: 97 (room air ) Pulse Ox Interpretation: Normal Progress Note: Blood work ordered and reviewed. Patient given IV NS bolus, IV protonix. Reevaluation Time: 11:35 Reassessment Condition: Improved (On reassessment, patient is resting comfortably and states he is feeling better. On exam, abdomen is soft and nontender. Blood work shows only mild elevation of AST, lipase normal. 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 Rxs given pepcid, zofran. Patient is well appearing, without evidence of alcohol withdrawal. He understands he should return to ED if symptoms worsen.) Disposition Counseled Patient/Family Regarding: Studies Performed, Diagnosis, Need For Followup, Rx Given - Disposition Referrals: [facility] [Outside] Gene Carl MD [Staff Provider] - Disposition: HOME/ ROUTINE Disposition Time: 11:35 Condition: STABLE Additional Instructions: FOLLOW UP WITH GI SPECIALIST WITHIN 1 WEEK USE MEDICATIONS NEEDED RETURN TO ER IF SYMPTOMS WORSEN Prescriptions: Famotidine [Pepcid] 20 mg PO BID PRN #15 tab PRN Reason: abdominal Ondansetron [Zofran Odt] 4 mg PO Q8 PRN #10 odt PRN Reason: Nausea/Vomiting Instructions: Epigastric Pain (ED), Alcohol Dependence (ED) Forms: [employer] (Persian) Print Language: PORTUGUESE - Clinical Impression Clinical Impression: Alcohol use disorder, Epigastric abdominal pain - Scribe Statement The provider has reviewed the documentation as recorded by the Scribwhit Cisneros All medical record entries made by the Danishibwhit were at my direction and personally dictated by me. I have reviewed the chart and agree that the record accurately reflects my personal performance of the history, physical exam, medical decision making, and the department course for this patient. I have also personally directed, reviewed, and agree with the discharge instructions and disposition.
[2017-07-13 13:15] VITALS: BP 156/97; PULSE 75; RESP 16
[2017-07-17 11:02] VITALS: O2SAT 97
== END 2017-07-13 13:15 | disposition home or self-care (01) ==
LOC: C.ER 09:12
DX: R10.13 Epigastric pain (principal); Z72.89 Other problems related to lifestyle
CPT/HCPCS: 80053; 82948; 83690; 85025; 96361; 96374; 99284; C9113; J7040

== ENCOUNTER 2017-07-22 19:25 | Observation (INO) | payer MEDICAID, SELFPAY ==
[2017-07-22 19:25] VITALS: BMI 22.9
--- NOTE | 2017-07-22 19:41 | C.PDOC ---
History Of Present Illness Patient was brought to the ER via EMS after being found intoxicated in the streets. Patient admits to ETOH use today; denies any trauma/injury or physical complaints. Time Seen by Provider: 07/22/17 19:40 Chief Complaint (Nursing): Substance Abuse History Per: Patient History/Exam Limitations: no limitations Onset/Duration Of Symptoms: Days Current Symptoms Are (Timing): Still Present Suicide/Self Injury Attempted (Context): None Modifying Factor(s): Alcohol Severity: None Pain Scale Rating Of: 0 Associated Symptoms: denies: Depression, Suicidal Thoughts, Suicidal Plan Involuntary Hold By: None Recent travel outside of the [place]: No Past Medical History Reviewed: Historical Data, Nursing Documentation, Vital Signs Vital Signs: Last Vital Signs Temp 97.9 F 07/23/17 05:04 Pulse 73 07/23/17 05:04 Resp 18 07/23/17 05:04 BP 134/79 07/23/17 05:04 Pulse Ox 97 07/23/17 05:04 - Medical History PMH: Anxiety, Depression, HTN Surgical History: No Surg Hx - [facility] Procedures ALCOHOL DETOXIFICATION (07/07/15) DETOXIFICATION SERVICES FOR SUBSTANCE ABUSE TREATMENT (04/17/17) GROUP MARKETING ASSISTANT RETAIL DIVISION FOR SUBSTANCE ABUSE TREATMENT, PSYCHOEDUCATION (03/17/16) INDIV PSYCHOTHERAPY FOR SUBSTANCE ABUSE TREATMENT, SUPPORT (04/17/17) INDIV PSYCHOTHERAPY FOR SUBSTANCE ABUSE, COGNITIV BEHAVIORAL (04/17/17) INDIV PSYCHOTHERAPY FOR SUBSTANCE ABUSE, PSYCHOEDUCATION (04/17/17) INDIVIDUAL PSYCHOTHERAPY, SUPPORTIVE (02/19/17) INJECT/INFUSE NEC (04/27/14) MEASUREMENT OF ARTERIAL PRESSURE, PERIPHERAL, PERC APPROACH (03/17/16) MEASUREMENT OF CARDIAC RHYTHM, PERCUTANEOUS APPROACH (03/17/16) MEDICATION MANAGEMENT (02/19/17) ULTRASONOGRAPHY OF RIGHT AND LEFT HEART, TRANSESOPHAGEAL (03/17/16) Family History: States: No Known Family Hx - Social History Hx Tobacco Use: No Hx Alcohol Use: Yes Hx Substance Use: No (alcoholism) - Immunization History Hx Tetanus Toxoid Vaccination: No Hx Influenza Vaccination: No (2017) Hx Pneumococcal Vaccination: No (unknown) Review Of Systems Constitutional: Negative for: Fever, Chills Gastrointestinal: Negative for: Nausea, Vomiting, Diarrhea Physical Exam - Physical Exam Appears: Non-toxic, Other (ETOH on breath) Skin: Warm, Dry Oral Mucosa: Moist Chest: Symmetrical, No Tenderness Cardiovascular: Rhythm Regular, No Murmur Respiratory: No Rales, No Rhonchi, No Wheezing Gastrointestinal/Abdominal: Soft, No Tenderness Neurological/Psych: Oriented x3 ED Course And Treatment O2 Sat by Pulse Oximetry: 98 Pulse Ox Interpretation: Normal Reevaluation Time: 05:35 Reassessment Condition: Improved ED OBSERVATION Discharge: Yes Date of observation admission: 07/22/17 Time of observation admission: 19:42 - Observation admission statement Patient is being placed in observation because:: acute alcohol intoxication - Goals of Observation Goals of observation are:: sobriety - Progress Note Progress Note: 07/22/17 19:42 vitals stable 07/22/17 21:42 no complaints 07/23/17 01:28 vitals stable 07/23/17 04:28 arousable Disposition Counseled Patient/Family Regarding: Studies Performed, Diagnosis, Need For Followup - Disposition Disposition: HOME/ ROUTINE Disposition Time: 19:41 Condition: FAIR - Clinical Impression Clinical Impression: Alcohol abuse, Alcoholic intoxication - Scribe Statement The provider has reviewed the documentation as recorded by the Scribwhit [place] All medical record entries made by the Danishibwhit were at my direction and personally dictated by me. I have reviewed the chart and agree that the record accurately reflects my personal performance of the history, physical exam, medical decision making, and the department course for this patient. I have also personally directed, reviewed, and agree with the discharge instructions and disposition.
[2017-07-23 05:06] VITALS: BP 134/79; PULSE 73; RESP 18; TEMP 97.9
[2017-07-23 05:35] VITALS: O2SAT 98
== END 2017-07-23 05:35 | disposition home or self-care (01) ==
LOC: C.ER 19:25 → C.9OBSV 19:41
PROVIDERS: ADMIT Emergency Medicine; ATTEND Emergency Medicine
DX: F10.229 Alcohol dependence with intoxication, unspecified (principal); I10 Essential (primary) hypertension
CPT/HCPCS: 82948; G0378

== ENCOUNTER 2017-07-23 15:55 | Inpatient (IN) | payer MEDICAID ==
[2017-07-23 15:56] VITALS: BMI 22.9
[2017-07-23 17:59] LABS: RBC URINE < 1 /hpf (0-3); URINE BILIRUBIN NEGATIVE (NEGATIVE); URINE BLOOD NEGATIVE (NEGATIVE); URINE COLOR Yellow (YELLOW); URINE GLUCOSE (UA) NORMAL (Normal); URINE KETONE NEGATIVE (NEGATIVE); URINE LEUKOCYTE ESTERASE NEG Leu/uL (Negative); URINE PROTEIN NEGATIVE (NEGATIVE); URINE UROBILINOGEN NORMAL mg/dL (0.2-1.0)
[2017-07-23 18:01] LABS: BASO % 0.9 % (0.0-2.0); EOS # 0.1 K/uL (0.0-0.7); EOS % 1.5 % (0.0-4.0); HEMATOCRIT 31.4 % (35.0-51.0); LYMPH # 1.6 K/uL (1.0-4.3); LYMPH % 41.4 % (20.0-40.0); MEAN CELL VOLUME 98.4 fL (80.0-94.0); MEAN CORPUSCULAR HEMOGLOBIN 33.5 pg (27.0-31.0); MEAN PLATELET VOLUME 6.4 fL (7.2-11.7); MONO # 0.4 K/uL (0.0-0.8); MONO % 9.3 % (0.0-10.0); NRBC % 0.1 % (0.0-2.0); RED CELL DISTRIBUTION WIDTH 16.1 % (11.5-14.5)
[2017-07-23 18:09] LABS: CHLORIDE 110 mmol/L (98-107); SODIUM 148 mmol/L (132-148)
[2017-07-23 18:10] LABS: POTASSIUM 3.5 mmol/L (3.6-5.2)
[2017-07-23 18:12] LABS: ALKALINE PHOSPHATASE 72 U/L (38-126); ALT/SGPT 60 U/L (21-72); AST/SGOT 66 U/L (17-59); BILIRUBIN,TOTAL 0.4 mg/dL (0.2-1.3); BLOOD UREA NITROGEN 16 mg/dL (9-20); CARBON DIOXIDE 25 mmol/L (22-30); GFR AFRICAN-AMERICAN > 60; GLUCOSE,RANDOM 81 mg/dL (75-110); TOTAL PROTEIN 6.7 g/dL (6.3-8.3)
[2017-07-23 18:33] LABS: ALCOHOL SERUM 396 mg/dl (0-10)
--- NOTE | 2017-07-23 21:56 | C.PDOC ---
Time Seen by Provider: 07/23/17 17:02 Chief Complaint (Nursing): Psychiatric Evaluation History Per: Patient, EMS History/Exam Limitations: intoxication Onset/Duration Of Symptoms: Unknown (today) Current Symptoms Are (Timing): Still Present Modifying Factor(s): Alcohol Severity: Severe Associated Symptoms: Depression Additional History Per: Prior Records Past Medical History Reviewed: Historical Data, Nursing Documentation, Vital Signs Vital Signs: Last Vital Signs Temp 98.4 F 07/23/17 22:17 Pulse 78 07/23/17 22:17 Resp 20 07/23/17 22:17 BP 113/71 07/23/17 22:17 Pulse Ox 94 L 07/23/17 22:17 - Medical History PMH: Anxiety, Depression, HTN Other PMH: Alcohol abuse - [facility] Procedures ALCOHOL DETOXIFICATION (07/07/15) DETOXIFICATION SERVICES FOR SUBSTANCE ABUSE TREATMENT (04/17/17) GROUP MARZIPAN MAKER FOR SUBSTANCE ABUSE TREATMENT, PSYCHOEDUCATION (03/17/16) INDIV PSYCHOTHERAPY FOR SUBSTANCE ABUSE TREATMENT, SUPPORT (04/17/17) INDIV PSYCHOTHERAPY FOR SUBSTANCE ABUSE, COGNITIV BEHAVIORAL (04/17/17) INDIV PSYCHOTHERAPY FOR SUBSTANCE ABUSE, PSYCHOEDUCATION (04/17/17) INDIVIDUAL PSYCHOTHERAPY, SUPPORTIVE (02/19/17) INJECT/INFUSE NEC (04/27/14) MEASUREMENT OF ARTERIAL PRESSURE, PERIPHERAL, PERC APPROACH (03/17/16) MEASUREMENT OF CARDIAC RHYTHM, PERCUTANEOUS APPROACH (03/17/16) MEDICATION MANAGEMENT (02/19/17) ULTRASONOGRAPHY OF RIGHT AND LEFT HEART, TRANSESOPHAGEAL (03/17/16) Family History: States: Unknown Family Hx - Social History Hx Tobacco Use: No Hx Alcohol Use: Yes Hx Substance Use: No (alcoholism) - Immunization History Hx Tetanus Toxoid Vaccination: No Hx Influenza Vaccination: No (2017) Hx Pneumococcal Vaccination: No (unknown) Review Of Systems Review Of Systems: ROS cannot be obtained secondary to pt's inabilty to answer questions. Physical Exam - Physical Exam Appears: Other (AOB, intoxicated) Skin: Normal Color, Warm, Dry Head: Atraumatic, Normacephalic Eye(s): bilateral: PERRL, EOMI Neck: Normal ROM, No Midline Cervical Tenderness, No Step Off Deformity, Supple Chest: Symmetrical, No Deformity Cardiovascular: Rhythm Regular Respiratory: Normal Breath Sounds, No Accessory Muscle Use Gastrointestinal/Abdominal: Soft Extremity: Normal ROM, No Deformity Neurological/Psych: No Normal Speech (slurred), Slow To Respond With Command, Other (Moving all extremities) Gait: Unable To Assess ED Course And Treatment - Laboratory Results Result Diagrams: 07/23/17 17:47 07/23/17 17:47 Interpretation Of Abnormal: Elevated alcohol level O2 Sat by Pulse Oximetry: 98 Pulse Ox Interpretation: Normal ED OBSERVATION Date of observation admission: 07/23/17 Time of observation admission: 17:30 - Observation admission statement Patient is being placed in observation because:: Alcohol intoxication. - Goals of Observation Goals of observation are:: Sobriety. Disposition - Disposition Disposition Time: 01:00 Condition: STABLE - Clinical Impression Clinical Impression: Alcoholic intoxication, Evaluation by psychiatric service required Physician Patient Turnover Patient Signed Over To: Richard Mosquera Handoff Comments: to reassess pt once sober and f/up plate worker evaluation.
--- NOTE | 2017-07-24 05:02 | PCM.BM ---
<Milo Urrutia - Last Filed: 07/24/17 04:58> Treatment Plan Problems - Problems identified on initial assessmt Depression Date Initiated: 07/24/17 Time Initiated: 04:59 Assessment reference: NA Status: Active Suicidal Ideation Date Initiated: 07/24/17 Time Initiated: 04:59 Assessment reference: NA Status: Active Alcohol Abuse Date Initiated: 07/24/17 Time Initiated: 05:00 Assessment reference: NA Status: Active Comment: Drinks Vodka almost daily. Alcohol level 396 on admission. Treatment assets and liabiliti Patient Assests: self-reliant, ADL independent, negotiates basic needs Patient Liabilities: live alone, financial problems, poor support system, substance abuse - Milieu Protocol Maintain good personal hygiene: daily Encourage regular showers, daily Remind patient to perform daily oral care, daily Assist patient to perform ADL's Maintain personal safety: every shift Educate patient to report safety concerns to staff, every shift Monitor environment for contraband/sharps Medication safety: Monitor for expected outcome, potential side effects: every shift, Assess barriers to learning: every shift, Assess readiness for medication education: every shift <Joan Boyle - Last Filed: 07/24/17 11:22> - Diagnosis (1) Alcohol dependence Status: Acute Interventions: 07/24/17 11:22 * Assess 7x/week regarding severity of withdrawal * Educate regarding risks, benefits, side effects and alternatives of medications * Use Motivational Interviewing for abstinence * Use CBT for relapse prevention * Medication management for withdrawal symptoms * Encourage medication assisted treatment * (2) Major depression Status: Acute Interventions: 07/24/17 11:22 * Assess/adjust medications daily and /or as needed * See patient on an individual basis 7x/week to assess symptoms of depression * Monitor for side effects & effectiveness of medications * <Stephanie Art - Last Filed: 07/27/17 10:37> Family Contact Family involvement: Famliy/SO not involved - Goals for Treatment Patient goals for treatment: "You can't help me." Discharge/Continuing Care - Education Needs Education Needs: Patient Medication, Patient Coping Skills, Patient Placement options, Patient Community resources - Discharge Discharge Criteria: Tolerates medication w/o severe side effects, Free of Suicidal thoughts Discharge to:: Prison - Treatment Team Participation Discussed with Family/SO: No Was Patient/Family/SO present at Treatment Team Meeting: Yes
--- NOTE | 2017-07-24 11:26 | PCM.PSYCH ---
Initial Psychiatric Evaluation - Initial Psychiatric Evaluation Type of Admission: Voluntary Legal Status: Capacity Chief Complaint (in patient's own words): "I was suicidal" History of Present Illness and Precipitating Events: Pt is a 61 y/o AA male, single, no child, homeless, unemployed. Patient reports SI and depressed for "a long time" but he is a poor historian as he is irate. He reports depressive sxs, with SI but no plans or intentions. No AVH or del. He is non-compliant with meds and relapsed right after his d/c from detox. Patient states he drink vodka 6-7 pints/day since the age of 18. His longest period of sobriety was 14 years, but last relapsed while incarcerated from 1990 to 2002. Pt has been to detox more than 10 times in the past, and rehab twice at [facility]. The pt denies use of any other drugs. he states he smokes 2 packs/day. He also adds that he is not sure if he is ready to quit but he was open to discuss. CA used again. Past psych hx: Admitted to [facility] with MDD and detox for alcohol wdw PMH: HTN Family psych hx: denies Current Medications: Active Medications Generic Name Dose Route Start Last Admin Trade Name Freq PRN Reason Stop Dose Admin Amlodipine Besylate 5 mg 07/24/17 10:15 Norvasc PO DAILY [facility] Calcium/Vitamin D 1 tab 07/24/17 10:30 Oscal-D 250 Mg-125 Units Tab PO DAILY [facility] Chlordiazepoxide 25 mg 07/24/17 12:00 Librium PO 07/28/17 11:59 Q6 [facility] Taper Chlordiazepoxide 25 mg 07/24/17 10:05 Librium PO Q4H PRN Alcohol Withdrawal Clonidine HCl 0.1 mg 07/24/17 10:03 Catapres PO Q4H PRN Symptoms of alcohol withdrawl Folic Acid 1 mg 07/24/17 10:00 Folic Acid PO DAILY [facility] Metoprolol Tartrate 25 mg 07/24/17 11:00 Lopressor PO BID [facility] Mirtazapine 15 mg 07/24/17 22:00 Remeron PO HS [facility] Multivitamins 1 tab 07/24/17 10:00 Hexavitamin PO DAILY [facility] Thiamine HCl 100 mg 07/24/17 10:00 Vitamin B1 Tab PO DAILY [facility] Trazodone HCl 100 mg 07/24/17 22:00 Desyrel PO HS PRN Insomnia Past Psychiatric History - Past Psychiatric History Previous Treatment History: Inpatient Pertinent Medical Hx (Current Medical&Sleep Prob, Allergies): Allergies Allergy/AdvReac Type Severity Reaction Status Date / Time No Known Allergies Allergy Verified 07/23/17 16:05 No Known Home Med 07/22/17 Review of Systems - Neurological Neurological: Tremor - Psychiatric Psychiatric: Abnormal Sleep Pattern, Anhedonia, Anxiety, Change in Appetite, Depression, Difficulty Concentrating, Irritability, Suicidal Ideation (no plan or intention). absent: Hallucinations, Homicidal Ideation Mental Status Examination - Personal Presentation Personal Presentation: Looks older than stated age - Affect Affect: Constricted - Motor Activity Motor Activity: Calm - Reliability in Providing Information Reliability in Providing Information: Fair - Speech Speech: Organized - Mood Mood: Depressed, Anxious - Formal Thought Process Formal Thought Process: No Impairment - Cognitive Functions Orientation: Person, Place, Situation, Time Sensorium: Drowsy Attention/Concentration: Attentive Abstract Thinking: [place] Estimate of Intelligence: Below average Judgement: Intact, as evidence by: Insight regarding need for hospitalization Memory: Recent intact, as evidence by: Ability to recall events of the day, Remote intact, as evidenced by: Abilit to recall sig. life events - Risk Risk: Diminished functioning - Strength & Assets Inventory Strength & Assets Inventory: Life experience - Limitations Limitations: Living alone, Other DSM 5 DX - DSM 5 DSM 5 Diagnosis: Major depression, recurrent, severe Alcohol use d/o - severe Alcohol withdrawal - Recommended/Plan of Treatment Treatment Recommendations and Plan of Treatment: Depression: Remeron for depression Supportive therapy and CBT Attend groups activities Alcohol: Librium detox As needed medications Gabapentin for augmentation Attend groups and activities Supportive therapy and psychoeducation CA for abstinence CBT for relapse prevention Encourage MAT Refer to rehab or IOP Attend self-help groups as well 34 min Projected ELOS: 5 days Prognosis: good with treatment - Smoking Cessation Smoking Cessation Initiated: Yes
[2017-07-24] MEDS: Multiple Vitamins Tab PO SCH (11:54)
[2017-07-24] MEDS: Calcium-Vit D 250 mg-125 Units Tab UD PO SCH (13:55)
[2017-07-25] MEDS: Calcium-Vit D 250 mg-125 Units Tab UD PO SCH (09:05)
[2017-07-25] MEDS: Multiple Vitamins Tab PO SCH (09:05)
[2017-07-25 09:56] VITALS: O2SAT 95
--- NOTE | 2017-07-25 11:06 | PCM.PYCHPN ---
Psychiatric Progress Note - Psychiatric Progress Note Patient seen today, length of contact: 17 min Patient Chief Complaint: "I am not well, tired" Problems Identified/Issues Discussed: The pt is seen, chart reviewed, case discussed with staff. The pt is compliant with medications and reports no side-effects. Symptoms are improving but needs more time to stabilize. After care discussed, he is not decided and seems uninterested in stopping alcohol , UT used Support and psychoeducation given. Medication Change: Yes (detox changes daily) Medical Record Reviewed: Yes Mental Status Examination - Cognitive Function Orientation: Person, Place, Situation, Time Memory: Impaired Attention: Poor Concentration: Poor Association: WNL Fund of Knowledge: Poor - Mood Mood: Depressed, Anxious - Affect Affect: Constricted - Speech Speech: Slurred - Formal Thought Process Formal Thought Process: No Impairment - Suicidal Ideation Suicidal Ideation: No - Homicidal Ideation Homicidal Ideation: No Goal/Treatment Plan - Goal/Treatment Plan Need for Continued Stay: Discharge may exacerbated symptoms, Severe functional impairment Progress Toward Problem(s) and Goals/Treatment Plan: Depression: Remeron for depression Supportive therapy and CBT Attend groups activities Alcohol: Librium detox As needed medications Gabapentin for augmentation Attend groups and activities Supportive therapy and psychoeducation UT for abstinence CBT for relapse prevention Encourage MAT Refer to rehab or IOP Attend self-help groups as well
[2017-07-26] MEDS: Calcium-Vit D 250 mg-125 Units Tab UD PO SCH (09:09)
[2017-07-26] MEDS: Multiple Vitamins Tab PO SCH (09:09)
--- NOTE | 2017-07-27 08:49 | PCM.PYCHPN ---
Psychiatric Progress Note - Psychiatric Progress Note Patient seen today, length of contact: 17 min Patient Chief Complaint: "I was suicidal" Problems Identified/Issues Discussed: The pt is seen, chart reviewed, case discussed with staff. Support given, CBT and AR used briefly No new symptoms reported, improving slowly and needs more time No SEs from medications, risks discussed. After care discussed - still no plans to stop drinking. Claims he deserves to drink bc his family hid he had a son and found out that after the son . Medication Change: Yes (detox changes daily) Medical Record Reviewed: Yes Mental Status Examination - Cognitive Function Orientation: Person, Place, Situation, Time Memory: Intact Attention: Poor Concentration: Poor Association: WNL Fund of Knowledge: Poor - Mood Mood: Depressed, Anxious - Affect Affect: Constricted - Speech Speech: Slurred - Formal Thought Process Formal Thought Process: No Impairment - Suicidal Ideation Suicidal Ideation: No - Homicidal Ideation Homicidal Ideation: No Goal/Treatment Plan - Goal/Treatment Plan Need for Continued Stay: Discharge may exacerbated symptoms, Severe functional impairment Progress Toward Problem(s) and Goals/Treatment Plan: Depression: Remeron for depression Supportive therapy and CBT Attend groups activities Alcohol: Librium detox As needed medications Gabapentin for augmentation Attend groups and activities Supportive therapy and psychoeducation AR for abstinence CBT for relapse prevention Encourage MAT Refer to rehab or IOP Attend self-help groups as well Estimated Date of D/C: 07/30/17
[2017-07-27] MEDS: Multiple Vitamins Tab PO SCH (09:37)
[2017-07-27] MEDS: Calcium-Vit D 250 mg-125 Units Tab UD PO SCH (09:39)
--- NOTE | 2017-07-27 12:47 | PCM.PYCHPN ---
Psychiatric Progress Note - Psychiatric Progress Note Patient seen today, length of contact: 17 min Patient Chief Complaint: "I was suicidal" Problems Identified/Issues Discussed: The pt is seen, chart reviewed, case discussed with staff. The pt is compliant with medications and reports no side-effects. Symptoms are improving but needs more time to stabilize. After care discussed, support and psychoeducation given. Seen with the team, and he repeated the same; no intention to quit drinking WI used Medication Change: Yes (increase remeron) Medical Record Reviewed: Yes Mental Status Examination - Cognitive Function Orientation: Person, Place, Situation, Time Memory: Impaired Attention: Poor Concentration: Poor Association: WNL Fund of Knowledge: Poor - Mood Mood: Depressed, Anxious - Affect Affect: Constricted - Speech Speech: Slurred - Formal Thought Process Formal Thought Process: No Impairment - Suicidal Ideation Suicidal Ideation: No - Homicidal Ideation Homicidal Ideation: No Goal/Treatment Plan - Goal/Treatment Plan Need for Continued Stay: Discharge may exacerbated symptoms, Severe functional impairment Progress Toward Problem(s) and Goals/Treatment Plan: Depression: Remeron for depression Supportive therapy and CBT Attend groups activities Alcohol: Librium detox As needed medications Gabapentin for augmentation Attend groups and activities Supportive therapy and psychoeducation WI for abstinence CBT for relapse prevention Encourage MAT Refer to rehab or IOP Attend self-help groups as well Estimated Date of D/C: 07/30/17
[2017-07-28] MEDS: Multiple Vitamins Tab PO SCH (09:37)
[2017-07-28] MEDS: Calcium-Vit D 250 mg-125 Units Tab UD PO SCH (09:38)
--- NOTE | 2017-07-28 12:35 | PCM.PYCHPN ---
Psychiatric Progress Note - Psychiatric Progress Note Patient seen today, length of contact: 16 min Patient Chief Complaint: "Tired and have pain in my stomach" Problems Identified/Issues Discussed: The pt is seen, chart reviewed, case discussed with staff. Support given, CBT and IA used briefly, still NO interest in after care or abstinence No new symptoms reported, improving slowly and needs more time No SEs from medications, risks discussed. Medication Change: Yes (add protonix) Medical Record Reviewed: Yes Mental Status Examination - Cognitive Function Orientation: Person, Place, Situation, Time Memory: Impaired Attention: Poor Concentration: Poor Association: WNL Fund of Knowledge: Poor - Mood Mood: Depressed, Anxious - Affect Affect: Constricted - Speech Speech: Slurred - Formal Thought Process Formal Thought Process: No Impairment - Suicidal Ideation Suicidal Ideation: No - Homicidal Ideation Homicidal Ideation: No Goal/Treatment Plan - Goal/Treatment Plan Need for Continued Stay: Discharge may exacerbated symptoms, Severe functional impairment Progress Toward Problem(s) and Goals/Treatment Plan: Depression: Remeron for depression Supportive therapy and CBT Attend groups activities Alcohol: Librium detox As needed medications Gabapentin for augmentation Attend groups and activities Supportive therapy and psychoeducation IA for abstinence CBT for relapse prevention Encourage MAT Refer to rehab or IOP Attend self-help groups as well Estimated Date of D/C: 07/30/17
[2017-07-28] MEDS: Pantoprazole 20 mg EC Tab PO SCH (13:10)
[2017-07-29 07:40] VITALS: BP 167/99; PULSE 59; RESP 20; TEMP 97.5
[2017-07-29] MEDS: Multiple Vitamins Tab PO SCH (09:26)
[2017-07-29] MEDS: Calcium-Vit D 250 mg-125 Units Tab UD PO SCH (09:27)
[2017-07-29] MEDS: Pantoprazole 20 mg EC Tab PO SCH (09:27)
--- NOTE | 2017-07-29 10:06 | PCM.PYCHDC ---
Mental Status Examination - Mental Status Examination Orientation: Person, Place, Situation, Time Memory: Impaired Mood: Anxious Affect: Constricted Speech: Slurred Attention: Poor Concentration: Poor Association: WNL Fund of Knowledge: Poor Formal Thought Process: No Impairment Suicidal Ideation: No Current Homicidal Ideation?: No Discharge Summary - Discharge Note Reason for Hospitalization: Depression and alcohol detox Psychiatric History (includes Medical, Family, Personal Hx): Previous admission Consultations:: List each consultation separately and include: 1. Reason for request. 2. Findings. 3. Follow-up Summary of Hospital Course include:: 1. Description of specific treatment plan utilized for patients during their course of treatmen. 2. Summarize the time- course for resolution of acute symptoms and/or regressed behaviors. 3. Describe issues identified and worked on during hospitalization. 4. Describe medication utilized. 5. Describe medical problems identified and treated. 6. Reassessment of suicide risk Summary of Hospital Course: He is seen today and chart reviewed, case discussed On admission: Pt is a 61 y/o AA male, single, no child, homeless, unemployed. Patient reports SI and depressed for "a long time" but he is a poor historian as he is irate. He reports depressive sxs, with SI but no plans or intentions. No AVH or del. He is non-compliant with meds and relapsed right after his d/c from detox. Patient states he drink vodka 6-7 pints/day since the age of 18. His longest period of sobriety was 14 years, but last relapsed while incarcerated from 1990 to 2002. Pt has been to detox more than 10 times in the past, and rehab twice at [facility]. The pt denies use of any other drugs. he states he smokes 2 packs/day. He also adds that he is not sure if he is ready to quit but he was open to discuss. AK used again. Past psych hx: Admitted to [facility] with MDD and detox for alcohol wdw PMH: HTN Family psych hx: denies Hospital course: He is admitted and started on meds and therapy. He also received alcohol detox. He remained isolated and withdrawn despite encourtagements from staff. He was more out lately but he admitted that he had no intention to stop alcohol b/c he almost feels like he deserves to drink b/c he lost his adult son and "they" meaning his family hid his existence from him for years. He was irate and help-rejecting and he even claimed that "no one is helping me here!" (??) And like that he left. He refused referrals or prescriptions. He claimed he couldn't afford them anyways. 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 - Final Diagnosis (DSM 5) Condition upon Discharge: STABLE DSM 5: Major depression, recurrent, severe Alcohol use d/o - severe Alcohol withdrawal Disposition: HOME/ ROUTINE Follow-up Treatment Plan: Return to ER if needed Stay away from alcohol or drugs No meds per his request Consider IOP - Smoking Cessation Smoking Cessation Medication prescribed: No - Antipsychotic Medications Pt discharged on 2 or more routine antipsychotic medications: No
== END 2017-07-29 10:25 | disposition home or self-care (01) | DRG 430 ==
LOC: C.ER 15:55 → C.9OBSV 21:56 → OBSVTOIN 07-24 03:49 → C.5E 07-24 03:59
PROVIDERS: ADMIT Psychiatry & Neurology Psychiatry; ATTEND Psychiatry & Neurology Psychiatry
PROC: GZ3ZZZZ Medication Management (ICD-10-PCS; principal; 2017-07-24)
PROC: HZ2ZZZZ Detoxification Services for Substance Abuse Treatment (ICD-10-PCS; 2017-07-24)
PROC: HZ59ZZZ Individual Psychotherapy for Substance Abuse Treatment, Supportive (ICD-10-PCS; 2017-07-24)
PROC: GZHZZZZ Group Psychotherapy (ICD-10-PCS; 2017-07-24)
PROC: GZ56ZZZ Individual Psychotherapy, Supportive (ICD-10-PCS; 2017-07-24)
PROC: HZ46ZZZ Group Counseling for Substance Abuse Treatment, Psychoeducation (ICD-10-PCS; 2017-07-24)
DX: F33.2 Major depressive disorder, recurrent severe without psychotic features (principal); R45.851 Suicidal ideations; F10.220 Alcohol dependence with intoxication, uncomplicated; F10.230 Alcohol dependence with withdrawal, uncomplicated; F17.210 Nicotine dependence, cigarettes, uncomplicated; Y90.8 Blood alcohol level of 240 mg/100 ml or more; I10 Essential (primary) hypertension; Z91.14 Patient's other noncompliance with medication regimen; Z59.0 Homelessness

== ENCOUNTER 2017-08-03 13:55 | Emergency (ER) | payer MEDICAID ==
[2017-08-03 13:55] VITALS: BMI 22.9
--- NOTE | 2017-08-03 16:08 | C.PDOC ---
History Of Present Illness 61 y/o male brought by EMS for public intoxication. Patient is a local homeless and is known at ED for prior visits for similar reasons. No physical complaints at this time. Time Seen by Provider: 08/03/17 16:05 History Per: Patient History/Exam Limitations: no limitations Onset/Duration Of Symptoms: Days Current Symptoms Are (Timing): Still Present Suicide/Self Injury Attempted (Context): None Modifying Factor(s): Alcohol Past Medical History Reviewed: Historical Data, Nursing Documentation, Vital Signs Vital Signs: Last Vital Signs Temp 98.2 F 08/03/17 16:32 Pulse 78 08/03/17 16:32 Resp 20 08/03/17 16:32 BP 132/78 08/03/17 16:32 Pulse Ox 99 08/03/17 16:32 - Medical History PMH: Anxiety, Depression, HTN, Seizures (ETOH related) Surgical History: No Surg Hx - [facility] Procedures ALCOHOL DETOXIFICATION (07/07/15) DETOXIFICATION SERVICES FOR SUBSTANCE ABUSE TREATMENT (07/24/17) GROUP CAREER PORTALS TEACHER FOR SUBSTANCE ABUSE TREATMENT, PSYCHOEDUCATION (07/24/17) GROUP PSYCHOTHERAPY (07/24/17) INDIV PSYCHOTHERAPY FOR SUBSTANCE ABUSE TREATMENT, SUPPORT (07/24/17) INDIV PSYCHOTHERAPY FOR SUBSTANCE ABUSE, COGNITIV BEHAVIORAL (04/17/17) INDIV PSYCHOTHERAPY FOR SUBSTANCE ABUSE, PSYCHOEDUCATION (04/17/17) INDIVIDUAL PSYCHOTHERAPY, SUPPORTIVE (07/24/17) INJECT/INFUSE NEC (04/27/14) MEASUREMENT OF ARTERIAL PRESSURE, PERIPHERAL, PERC APPROACH (03/17/16) MEASUREMENT OF CARDIAC RHYTHM, PERCUTANEOUS APPROACH (03/17/16) MEDICATION MANAGEMENT (07/24/17) ULTRASONOGRAPHY OF RIGHT AND LEFT HEART, TRANSESOPHAGEAL (03/17/16) Family History: States: No Known Family Hx - Social History Hx Tobacco Use: No Hx Alcohol Use: Yes Hx Substance Use: Yes - Immunization History Hx Tetanus Toxoid Vaccination: No Hx Influenza Vaccination: No (2017) Hx Pneumococcal Vaccination: No (unknown) Review Of Systems Except As Marked, All Systems Reviewed And Found Negative. Constitutional: Negative for: Fever, Chills Cardiovascular: Negative for: Chest Pain Respiratory: Negative for: Shortness of Breath Gastrointestinal: Negative for: Nausea, Vomiting Skin: Negative for: Rash Neurological: Negative for: Weakness, Numbness Physical Exam - Physical Exam Appears: Non-toxic, Other (Disheveled, foul smelling, etoh on breath) Skin: Normal Color, Warm, Dry, No Rash Head: Atraumatic, Normacephalic Eye(s): bilateral: Normal Inspection Oral Mucosa: Moist Neck: Normal ROM, Supple Chest: Symmetrical Cardiovascular: Rhythm Regular, No Murmur Respiratory: Normal Breath Sounds, No Rales, No Rhonchi, No Wheezing Gastrointestinal/Abdominal: Soft, No Tenderness, No Guarding, No Rebound Neurological/Psych: Oriented x3 Gait: Steady ED Course And Treatment O2 Sat by Pulse Oximetry: 97 (RA) Pulse Ox Interpretation: Normal Medical Decision Making Medical Decision Making: typical alcohol abuse, no injuries, stable for d/c Disposition Doctor Will See Patient In The: Office Counseled Patient/Family Regarding: Studies Performed, Diagnosis - Disposition Referrals: Alcoholics Anonymous [Outside] [place] [place] [facility] [Outside] [facility] [Outside] [facility] [Outside] Disposition: HOME/ ROUTINE Disposition Time: 16:08 Condition: GOOD Instructions: Abuse of Alcohol (ED) Forms: [facility] (Vietnamese) - Clinical Impression Clinical Impression: Alcohol abuse - Scribe Statement The provider has reviewed the documentation as recorded by the Scribe Skylar Lr All medical record entries made by the Scribe were at my direction and personally dictated by me. I have reviewed the chart and agree that the record accurately reflects my personal performance of the history, physical exam, medical decision making, and the department course for this patient. I have also personally directed, reviewed, and agree with the discharge instructions and disposition.
[2017-08-03 16:33] VITALS: BP 132/78; PULSE 78; RESP 20; TEMP 98.2
[2017-08-03 20:38] VITALS: O2SAT 97
== END 2017-08-03 16:33 | disposition home or self-care (01) ==
LOC: C.ER 13:55
DX: F10.10 Alcohol abuse, uncomplicated (principal)

== ENCOUNTER 2017-08-25 20:46 | Emergency (ER) | payer MEDICAID ==
[2017-08-25 20:47] VITALS: BMI 22.9
[2017-08-25 21:28] VITALS: TEMP 97.8
--- NOTE | 2017-08-25 22:28 | C.PDOC ---
History Of Present Illness 61 year old male brought in to the ER via EMS [place]. Patient admits to ETOH use today; currently eating a sandwich, pleasant with no complaints. Time Seen by Provider: 08/25/17 21:39 Chief Complaint (Nursing): Medical Clearance History Per: Patient, EMS History/Exam Limitations: no limitations Onset/Duration Of Symptoms: Hrs Current Symptoms Are (Timing): Still Present Recent travel outside of the [place]: No Past Medical History Reviewed: Historical Data, Nursing Documentation, Vital Signs Vital Signs: Last Vital Signs Temp 97.8 F 08/25/17 21:25 Pulse 59 L 08/25/17 21:25 Resp 16 08/25/17 21:25 BP 147/85 08/25/17 21:25 Pulse Ox 100 08/26/17 00:37 - Medical History PMH: Anxiety, Depression, HTN, Seizures (ETOH related) Surgical History: No Surg Hx - [facility] Procedures ALCOHOL DETOXIFICATION (07/07/15) DETOXIFICATION SERVICES FOR SUBSTANCE ABUSE TREATMENT (07/24/17) GROUP OYSTER BED WORKER FOR SUBSTANCE ABUSE TREATMENT, PSYCHOEDUCATION (07/24/17) GROUP PSYCHOTHERAPY (07/24/17) INDIV PSYCHOTHERAPY FOR SUBSTANCE ABUSE TREATMENT, SUPPORT (07/24/17) INDIV PSYCHOTHERAPY FOR SUBSTANCE ABUSE, COGNITIV BEHAVIORAL (04/17/17) INDIV PSYCHOTHERAPY FOR SUBSTANCE ABUSE, PSYCHOEDUCATION (04/17/17) INDIVIDUAL PSYCHOTHERAPY, SUPPORTIVE (07/24/17) INJECT/INFUSE NEC (04/27/14) MEASUREMENT OF ARTERIAL PRESSURE, PERIPHERAL, PERC APPROACH (03/17/16) MEASUREMENT OF CARDIAC RHYTHM, PERCUTANEOUS APPROACH (03/17/16) MEDICATION MANAGEMENT (07/24/17) ULTRASONOGRAPHY OF RIGHT AND LEFT HEART, TRANSESOPHAGEAL (03/17/16) Family History: States: Unknown Family Hx - Social History Hx Tobacco Use: No Hx Alcohol Use: Yes Hx Substance Use: Yes - Immunization History Hx Tetanus Toxoid Vaccination: No Hx Influenza Vaccination: No (2017) Hx Pneumococcal Vaccination: No (unknown) Review Of Systems Except As Marked, All Systems Reviewed And Found Negative. Physical Exam - Physical Exam Appears: Non-toxic, No Acute Distress, Other (ETOH on breath) Skin: Normal Color, Warm, Dry Head: Atraumatic, Normacephalic Oral Mucosa: Moist Chest: Symmetrical, No Tenderness Cardiovascular: Rhythm Regular Respiratory: Normal Breath Sounds, No Rales, No Rhonchi, No Wheezing Gastrointestinal/Abdominal: Soft, No Tenderness Neurological/Psych: Oriented x3, Normal Speech, Normal Cognition ED Course And Treatment O2 Sat by Pulse Oximetry: 100 (room air) Pulse Ox Interpretation: Normal Medical Decision Making Medical Decision Making: Impression: ETOH intoxication. Plan: Blood work, urinalysis, finger stick Patient will be signed out pending sobriety, reevaluation, and disposition. Disposition - Disposition Disposition Time: 00:52 Condition: STABLE Forms: [facility] (Burkinan) - Clinical Impression Clinical Impression: Alcohol abuse - Scribe Statement The provider has reviewed the documentation as recorded by the Scribe [place] All medical record entries made by the Scribe were at my direction and personally dictated by me. I have reviewed the chart and agree that the record accurately reflects my personal performance of the history, physical exam, medical decision making, and the department course for this patient. I have also personally directed, reviewed, and agree with the discharge instructions and disposition. Physician Patient Turnover Patient Signed Over To: Maria Luz Sanchez (pending sobriety, reevaluation, and disposition.)
[2017-08-26 06:16] VITALS: BP 136/82; PULSE 72; RESP 16; O2SAT 96
== END 2017-08-26 06:16 | disposition home or self-care (01) ==
LOC: C.ER 20:46
DX: F10.10 Alcohol abuse, uncomplicated (principal)

== ENCOUNTER 2017-09-24 10:31 | Emergency (ER) | payer MEDICAID, OTHER ==
[2017-09-24 10:31] VITALS: BMI 22.9
[2017-09-24 10:40] VITALS: BP 143/92; PULSE 90; RESP 18; TEMP 97.2; O2SAT 100
--- NOTE | 2017-09-24 11:49 | C.PDOC ---
Time Seen by Provider: 09/24/17 11:24 Chief Complaint (Nursing): Substance Abuse Past Medical History Vital Signs: Last Vital Signs Temp 97.2 F L 09/24/17 10:38 Pulse 90 09/24/17 10:38 Resp 18 09/24/17 10:38 BP 143/92 H 09/24/17 10:38 Pulse Ox 100 09/24/17 10:38 - Medical History PMH: Anxiety, Depression, HTN, Seizures (ETOH related) Denies: Diabetes, Hepatitis, HIV, Chronic Kidney Disease, Sexually Transmitted Disease - [facility] Procedures ALCOHOL DETOXIFICATION (07/07/15) DETOXIFICATION SERVICES FOR SUBSTANCE ABUSE TREATMENT (07/24/17) GROUP GAME FARM HELPER FOR SUBSTANCE ABUSE TREATMENT, PSYCHOEDUCATION (07/24/17) GROUP PSYCHOTHERAPY (07/24/17) INDIV PSYCHOTHERAPY FOR SUBSTANCE ABUSE TREATMENT, SUPPORT (07/24/17) INDIV PSYCHOTHERAPY FOR SUBSTANCE ABUSE, COGNITIV BEHAVIORAL (04/17/17) INDIV PSYCHOTHERAPY FOR SUBSTANCE ABUSE, PSYCHOEDUCATION (04/17/17) INDIVIDUAL PSYCHOTHERAPY, SUPPORTIVE (07/24/17) INJECT/INFUSE NEC (04/27/14) MEASUREMENT OF ARTERIAL PRESSURE, PERIPHERAL, PERC APPROACH (03/17/16) MEASUREMENT OF CARDIAC RHYTHM, PERCUTANEOUS APPROACH (03/17/16) MEDICATION MANAGEMENT (07/24/17) ULTRASONOGRAPHY OF RIGHT AND LEFT HEART, TRANSESOPHAGEAL (03/17/16) Family History: States: Unknown Family Hx - Social History Hx Tobacco Use: No Hx Alcohol Use: Yes Hx Substance Use: No - Immunization History Hx Tetanus Toxoid Vaccination: No Hx Influenza Vaccination: No (2017) Hx Pneumococcal Vaccination: No (unknown) ED Course And Treatment O2 Sat by Pulse Oximetry: 100 Disposition - Disposition Referrals: [facility] [Outside] [facility] [Outside] Disposition: HOME/ ROUTINE Disposition Time: 11:40 Condition: STABLE Additional Instructions: follow up with medical clinic in 2 days call to make an appointment return to hospital if symptoms worsens Instructions: Abuse of Alcohol (ED) Forms: [facility] (Togolese), General Discharge Instructions - Clinical Impression Clinical Impression: Alcohol abuse
--- NOTE | 2017-09-24 11:59 | C.PDOC ---
History Of Present Illness 62 y/o male presents to ED requesting detox from alcohol. Last drink was this morning at 3:00. Pt states that he went to a social work meeting this morning to discuss living arrangements, and was told that he needs to get detox first before he can have the apartment. No SI, HI, or any physical complaints. Time Seen by Provider: 09/24/17 11:24 Chief Complaint (Nursing): Substance Abuse History Per: Patient History/Exam Limitations: no limitations Onset/Duration Of Symptoms: Gradual Current Symptoms Are (Timing): Still Present Suicide/Self Injury Attempted (Context): None Modifying Factor(s): Alcohol Severity: None Pain Scale Rating Of: 0 Associated Symptoms: denies: Suicidal Thoughts, Suicidal Plan Involuntary Hold By: None Recent travel outside of the [place]: No Additional History Per: Patient Past Medical History Reviewed: Historical Data, Nursing Documentation, Vital Signs Vital Signs: Last Vital Signs Temp 97.2 F L 09/24/17 10:38 Pulse 90 09/24/17 10:38 Resp 18 09/24/17 10:38 BP 143/92 H 09/24/17 10:38 Pulse Ox 100 09/24/17 12:03 - Medical History PMH: Anxiety, Depression, HTN, Seizures (ETOH related) Denies: Diabetes, Hepatitis, HIV, Chronic Kidney Disease, Sexually Transmitted Disease - [facility] Procedures ALCOHOL DETOXIFICATION (07/07/15) DETOXIFICATION SERVICES FOR SUBSTANCE ABUSE TREATMENT (07/24/17) GROUP HORSE STUD WORKER FOR SUBSTANCE ABUSE TREATMENT, PSYCHOEDUCATION (07/24/17) GROUP PSYCHOTHERAPY (07/24/17) INDIV PSYCHOTHERAPY FOR SUBSTANCE ABUSE TREATMENT, SUPPORT (07/24/17) INDIV PSYCHOTHERAPY FOR SUBSTANCE ABUSE, COGNITIV BEHAVIORAL (04/17/17) INDIV PSYCHOTHERAPY FOR SUBSTANCE ABUSE, PSYCHOEDUCATION (04/17/17) INDIVIDUAL PSYCHOTHERAPY, SUPPORTIVE (07/24/17) INJECT/INFUSE NEC (04/27/14) MEASUREMENT OF ARTERIAL PRESSURE, PERIPHERAL, PERC APPROACH (03/17/16) MEASUREMENT OF CARDIAC RHYTHM, PERCUTANEOUS APPROACH (03/17/16) MEDICATION MANAGEMENT (07/24/17) ULTRASONOGRAPHY OF RIGHT AND LEFT HEART, TRANSESOPHAGEAL (03/17/16) Family History: States: Unknown Family Hx - Social History Hx Tobacco Use: No Hx Alcohol Use: Yes Hx Substance Use: No - Immunization History Hx Tetanus Toxoid Vaccination: No Hx Influenza Vaccination: No (2017) Hx Pneumococcal Vaccination: No (unknown) Review Of Systems Except As Marked, All Systems Reviewed And Found Negative. Constitutional: Negative for: Fever, Chills Cardiovascular: Negative for: Chest Pain, Palpitations Respiratory: Negative for: Cough, Shortness of Breath Gastrointestinal: Negative for: Nausea, Vomiting, Abdominal Pain Neurological: Negative for: Headache, Dizziness Physical Exam - Physical Exam Appears: Non-toxic, No Acute Distress Skin: Normal Color, Warm, Dry Head: Atraumatic, Normacephalic Eye(s): bilateral: Normal Inspection Oral Mucosa: Moist Neck: Supple Chest: Symmetrical Cardiovascular: Rhythm Regular, No Murmur Respiratory: Normal Breath Sounds, No Rales, No Rhonchi, No Wheezing Gastrointestinal/Abdominal: Soft, No Tenderness Back: No CVA Tenderness Extremity: Normal ROM Neurological/Psych: Oriented x3, Normal Speech ED Course And Treatment O2 Sat by Pulse Oximetry: 100 Pulse Ox Interpretation: Normal Medical Decision Making Medical Decision Making: Impression: Alcoholism No detox beds available at this time, information was provided to patient. Disposition - Disposition Referrals: [facility] [Outside] [facility] [Outside] Disposition: HOME/ ROUTINE Disposition Time: 11:40 Condition: STABLE Additional Instructions: follow up with medical clinic in 2 days call to make an appointment return to hospital if symptoms worsens Instructions: Abuse of Alcohol (ED) Forms: General Discharge Instructions, [facility] (Malaysian) - Clinical Impression Clinical Impression: Alcohol abuse - Scribe Statement The provider has reviewed the documentation as recorded by the Scribwhit Cole All medical record entries made by the Danishibwhit were at my direction and personally dictated by me. I have reviewed the chart and agree that the record accurately reflects my personal performance of the history, physical exam, medical decision making, and the department course for this patient. I have also personally directed, reviewed, and agree with the discharge instructions and disposition.
== END 2017-09-24 11:51 | disposition home or self-care (01) ==
LOC: C.ER 10:31
DX: F10.10 Alcohol abuse, uncomplicated (principal); Y90.9 Presence of alcohol in blood, level not specified

== ENCOUNTER 2017-10-01 01:54 | Emergency (ER) | payer MEDICAID ==
[2017-10-01 01:54] VITALS: BMI 22.9
--- NOTE | 2017-10-01 03:39 | C.PDOC ---
History Of Present Illness 62 year old male is brought into the ED for ETOH intoxication. Patient has several visits to the ED for ETOH intoxication and detox requests. Patient denies SI/HI or self injury at the time. Time Seen by Provider: 10/01/17 02:27 Chief Complaint (Nursing): Substance Abuse History Per: Patient, EMS History/Exam Limitations: intoxication Onset/Duration Of Symptoms: Hrs Current Symptoms Are (Timing): Still Present Suicide/Self Injury Attempted (Context): None Modifying Factor(s): Alcohol Associated Symptoms: denies: Depression, Suicidal Thoughts, Suicidal Plan Involuntary Hold By: None Recent travel outside of the [place]: No Additional History Per: Patient, EMS Past Medical History Reviewed: Historical Data, Nursing Documentation, Vital Signs Vital Signs: Last Vital Signs Temp 97.9 F 10/01/17 06:32 Pulse 86 10/01/17 06:32 Resp 16 10/01/17 06:32 BP 136/86 10/01/17 06:32 Pulse Ox 96 10/01/17 06:36 - Medical History PMH: Anxiety, Depression, HTN, Seizures (ETOH related) Denies: Diabetes, Hepatitis, HIV, Chronic Kidney Disease, Sexually Transmitted Disease Surgical History: No Surg Hx - [facility] Procedures ALCOHOL DETOXIFICATION (07/07/15) DETOXIFICATION SERVICES FOR SUBSTANCE ABUSE TREATMENT (07/24/17) GROUP CASE ASSEMBLER FOR SUBSTANCE ABUSE TREATMENT, PSYCHOEDUCATION (07/24/17) GROUP PSYCHOTHERAPY (07/24/17) INDIV PSYCHOTHERAPY FOR SUBSTANCE ABUSE TREATMENT, SUPPORT (07/24/17) INDIV PSYCHOTHERAPY FOR SUBSTANCE ABUSE, COGNITIV BEHAVIORAL (04/17/17) INDIV PSYCHOTHERAPY FOR SUBSTANCE ABUSE, PSYCHOEDUCATION (04/17/17) INDIVIDUAL PSYCHOTHERAPY, SUPPORTIVE (07/24/17) INJECT/INFUSE NEC (04/27/14) MEASUREMENT OF ARTERIAL PRESSURE, PERIPHERAL, PERC APPROACH (03/17/16) MEASUREMENT OF CARDIAC RHYTHM, PERCUTANEOUS APPROACH (03/17/16) MEDICATION MANAGEMENT (07/24/17) ULTRASONOGRAPHY OF RIGHT AND LEFT HEART, TRANSESOPHAGEAL (03/17/16) Family History: States: Unknown Family Hx - Social History Hx Tobacco Use: No Hx Alcohol Use: Yes Hx Substance Use: No - Immunization History Hx Tetanus Toxoid Vaccination: No Hx Influenza Vaccination: No (2017) Hx Pneumococcal Vaccination: No (unknown) Review Of Systems Constitutional: Negative for: Fever Cardiovascular: Negative for: Chest Pain Respiratory: Negative for: Shortness of Breath Gastrointestinal: Negative for: Nausea, Vomiting, Abdominal Pain Neurological: Negative for: Weakness, Numbness Psych: Negative for: Depression, Suicidal ideation Physical Exam - Physical Exam Appears: Other (Intoxicated, ETOH on breath ) Skin: Normal Color, Warm, Dry Head: Atraumatic, Normacephalic Eye(s): bilateral: Normal Inspection Oral Mucosa: Moist Neck: Normal ROM, Supple Chest: Symmetrical Cardiovascular: Rhythm Regular, No Murmur Respiratory: Normal Breath Sounds, No Rales, No Rhonchi, No Wheezing Gastrointestinal/Abdominal: Soft, No Tenderness Extremity: Normal ROM, No Pedal Edema, No Calf Tenderness, No Swelling Neurological/Psych: No Normal Speech (slurred) Gait: Unable To Assess ED Course And Treatment O2 Sat by Pulse Oximetry: 96 (On RA) Pulse Ox Interpretation: Normal Progress Note: 6AM-Pt is awake, alert and oriented x 3, ambulatory in ED with steady gait. Pt will be discharged Reassessment Condition: Improved Disposition Counseled Patient/Family Regarding: Studies Performed, Diagnosis, Need For Followup - Disposition Disposition: HOME/ ROUTINE Disposition Time: 06:00 Condition: STABLE Additional Instructions: Please follow up in clinic Return to ER if worse Instructions: Abuse of Alcohol (ED) Forms: [employer] [facility] (Faroese) - Clinical Impression Clinical Impression: Alcohol abuse - PA / RESTAURANT DELIVERY DRIVER / Resident Statement MD/DO has reviewed & agrees with the documentation as recorded. - Scribe Statement The provider has reviewed the documentation as recorded by the Scribe Osbaldo Cordero All medical record entries made by the Scribe were at my direction and personally dictated by me. I have reviewed the chart and agree that the record accurately reflects my personal performance of the history, physical exam, medical decision making, and the department course for this patient. I have also personally directed, reviewed, and agree with the discharge instructions and disposition.
[2017-10-01 06:34] VITALS: BP 136/86; PULSE 86; RESP 16; TEMP 97.9
[2017-10-01 06:36] VITALS: O2SAT 96
== END 2017-10-01 06:37 | disposition home or self-care (01) ==
LOC: C.ER 01:54
DX: F10.129 Alcohol abuse with intoxication, unspecified (principal); I10 Essential (primary) hypertension

== ENCOUNTER 2017-10-01 12:48 | Emergency (ER) | payer MEDICAID ==
[2017-10-01 12:48] VITALS: BMI 22.9
[2017-10-01 12:58] VITALS: BP 160/84; PULSE 77; RESP 18; TEMP 97.9; O2SAT 96
--- NOTE | 2017-10-01 13:44 | C.PDOC ---
History Of Present Illness 62 yr old male brought in via BLS, presents to [facility] ER for public intoxication. Patient was seen in ER last night for same complaint. ROS is unable to be obtained due to intoxication. Time Seen by Provider: 10/01/17 13:32 Chief Complaint (Nursing): Substance Abuse History Per: EMS, Other (Prior records) History/Exam Limitations: intoxication Additional History Per: Prior Records Past Medical History Reviewed: Historical Data, Nursing Documentation, Vital Signs Vital Signs: Last Vital Signs Temp 97.9 F 10/01/17 12:57 Pulse 77 10/01/17 12:57 Resp 18 10/01/17 12:57 BP 160/84 H 10/01/17 12:57 Pulse Ox 96 10/01/17 16:45 - Medical History PMH: Anxiety, Depression, HTN, Seizures (ETOH related) - [facility] Procedures ALCOHOL DETOXIFICATION (07/07/15) DETOXIFICATION SERVICES FOR SUBSTANCE ABUSE TREATMENT (07/24/17) GROUP POWER HAIR CLIPPER FOR SUBSTANCE ABUSE TREATMENT, PSYCHOEDUCATION (07/24/17) GROUP PSYCHOTHERAPY (07/24/17) INDIV PSYCHOTHERAPY FOR SUBSTANCE ABUSE TREATMENT, SUPPORT (07/24/17) INDIV PSYCHOTHERAPY FOR SUBSTANCE ABUSE, COGNITIV BEHAVIORAL (04/17/17) INDIV PSYCHOTHERAPY FOR SUBSTANCE ABUSE, PSYCHOEDUCATION (04/17/17) INDIVIDUAL PSYCHOTHERAPY, SUPPORTIVE (07/24/17) INJECT/INFUSE NEC (04/27/14) MEASUREMENT OF ARTERIAL PRESSURE, PERIPHERAL, PERC APPROACH (03/17/16) MEASUREMENT OF CARDIAC RHYTHM, PERCUTANEOUS APPROACH (03/17/16) MEDICATION MANAGEMENT (07/24/17) ULTRASONOGRAPHY OF RIGHT AND LEFT HEART, TRANSESOPHAGEAL (03/17/16) Family History: States: No Known Family Hx - Social History Hx Tobacco Use: No Hx Alcohol Use: Yes Hx Substance Use: No - Immunization History Hx Tetanus Toxoid Vaccination: No Hx Influenza Vaccination: No (2017) Hx Pneumococcal Vaccination: No (unknown) Review Of Systems Review Of Systems: ROS cannot be obtained secondary to pt's inabilty to answer questions. Physical Exam - Physical Exam Appears: Non-toxic, No Acute Distress, Unkempt, Other (Alcohol on breath) Skin: Warm, Dry, No Rash Head: Atraumatic, Normacephalic Respiratory: Normal Breath Sounds, No Rales, No Rhonchi, No Stridor, No Wheezing Neurological/Psych: Other (Patient awakes to painful stimuli.) ED Course And Treatment - Laboratory Results Lab Interpretation: Normal (poc glu wnl) O2 Sat by Pulse Oximetry: 96 (RA) Pulse Ox Interpretation: Normal Medical Decision Making Medical Decision Making: persistent etoh abuse, homeless malingering stayed in our ED overnight last night so only out in public for a few hours before return. Disposition Doctor Will See Patient In The: Office Counseled Patient/Family Regarding: Studies Performed, Diagnosis - Disposition Referrals: Alcoholics Anonymous [Outside] [facility] at [facility] [Outside] [facility] [Outside] [facility] [Outside] Disposition: HOME/ ROUTINE Disposition Time: 13:44 Condition: GOOD Additional Instructions: cease alcohol abuse Seek counseling and outpatient psych Seek nightly Half-Way placement as directed during your ED visit. Instructions: Abuse of Alcohol (ED) Forms: [employer] [facility] (Serbian) - Clinical Impression Clinical Impression: Alcohol abuse, Homelessness, Malingering - Scribe Statement The provider has reviewed the documentation as recorded by the Piotr Vega Provider Attestation: All medical record entries made by the Piotr were at my direction and personally dictated by me. I have reviewed the chart and agree that the record accurately reflects my personal performance of the history, physical exam, medical decision making, and the department course for this patient. I have also personally directed, reviewed, and agree with the discharge instructions and disposition.
== END 2017-10-01 14:12 | disposition home or self-care (01) ==
LOC: C.ER 12:48
DX: F10.10 Alcohol abuse, uncomplicated (principal); Z59.0 Homelessness; I10 Essential (primary) hypertension; Z76.5 Malingerer [conscious simulation]

== ENCOUNTER 2017-10-06 18:22 | Emergency (ER) | payer MEDICAID ==
[2017-10-06 18:22] VITALS: BMI 22.9
--- NOTE | 2017-10-06 20:40 | C.PDOC ---
History Of Present Illness Patient presents to the ER with acute ETOH intoxication, requesting a place to spend the night. Denies physical complaints at this time. Time Seen by Provider: 10/06/17 20:39 Chief Complaint (Nursing): Substance Abuse History Per: Patient History/Exam Limitations: no limitations Onset/Duration Of Symptoms: Hrs Current Symptoms Are (Timing): Still Present Suicide/Self Injury Attempted (Context): None Modifying Factor(s): Alcohol Severity: None Pain Scale Rating Of: 0 Associated Symptoms: denies: Depression, Suicidal Thoughts, Suicidal Plan Involuntary Hold By: None Recent travel outside of the [place]: No Past Medical History Reviewed: Historical Data, Nursing Documentation, Vital Signs Vital Signs: Last Vital Signs Temp 97.6 F 10/07/17 01:52 Pulse 79 10/07/17 01:52 Resp 20 10/07/17 01:52 BP 149/90 10/07/17 01:52 Pulse Ox 96 10/07/17 01:52 - Medical History PMH: Anxiety, Depression, HTN, Seizures (ETOH related) - [facility] Procedures ALCOHOL DETOXIFICATION (07/07/15) DETOXIFICATION SERVICES FOR SUBSTANCE ABUSE TREATMENT (07/24/17) GROUP COVERED BUTTON MAKER FOR SUBSTANCE ABUSE TREATMENT, PSYCHOEDUCATION (07/24/17) GROUP PSYCHOTHERAPY (07/24/17) INDIV PSYCHOTHERAPY FOR SUBSTANCE ABUSE TREATMENT, SUPPORT (07/24/17) INDIV PSYCHOTHERAPY FOR SUBSTANCE ABUSE, COGNITIV BEHAVIORAL (04/17/17) INDIV PSYCHOTHERAPY FOR SUBSTANCE ABUSE, PSYCHOEDUCATION (04/17/17) INDIVIDUAL PSYCHOTHERAPY, SUPPORTIVE (07/24/17) INJECT/INFUSE NEC (04/27/14) MEASUREMENT OF ARTERIAL PRESSURE, PERIPHERAL, PERC APPROACH (03/17/16) MEASUREMENT OF CARDIAC RHYTHM, PERCUTANEOUS APPROACH (03/17/16) MEDICATION MANAGEMENT (07/24/17) ULTRASONOGRAPHY OF RIGHT AND LEFT HEART, TRANSESOPHAGEAL (03/17/16) Family History: States: No Known Family Hx - Social History Hx Tobacco Use: No Hx Alcohol Use: Yes Hx Substance Use: No - Immunization History Hx Tetanus Toxoid Vaccination: No Hx Influenza Vaccination: No (2017) Hx Pneumococcal Vaccination: No (unknown) Review Of Systems Constitutional: Negative for: Fever, Chills Gastrointestinal: Negative for: Nausea, Vomiting, Diarrhea Physical Exam - Physical Exam Appears: Non-toxic, Other (ETOH on breath) Skin: Warm, Dry Head: Normacephalic Oral Mucosa: Moist Chest: Symmetrical Cardiovascular: Rhythm Regular Respiratory: No Rales, No Rhonchi, No Wheezing Gastrointestinal/Abdominal: Soft, No Tenderness Neurological/Psych: Oriented x3 ED Course And Treatment O2 Sat by Pulse Oximetry: 97 (Room air) Pulse Ox Interpretation: Normal Reevaluation Time: 05:25 Reassessment Condition: Improved Disposition Counseled Patient/Family Regarding: Studies Performed, Diagnosis - Disposition Referrals: [facility] at [facility] [Outside] Disposition: HOME/ ROUTINE Disposition Time: 20:39 Condition: FAIR Instructions: Alcohol Intoxication (DC) Forms: [facility] (Amharic) - Clinical Impression Clinical Impression: Alcoholic intoxication, Homelessness - Scribe Statement The provider has reviewed the documentation as recorded by the Scribwhit [place] All medical record entries made by the Scribe were at my direction and personally dictated by me. I have reviewed the chart and agree that the record accurately reflects my personal performance of the history, physical exam, medical decision making, and the department course for this patient. I have also personally directed, reviewed, and agree with the discharge instructions and disposition.
[2017-10-07 01:53] VITALS: RESP 20
[2017-10-07 05:25] VITALS: O2SAT 97
[2017-10-07 05:48] VITALS: BP 149/87; PULSE 80; TEMP 98.7
== END 2017-10-07 05:20 | disposition home or self-care (01) ==
LOC: SUPCPDRO 18:22 → C.ER 18:22
DX: F10.129 Alcohol abuse with intoxication, unspecified (principal); Y90.9 Presence of alcohol in blood, level not specified; Z59.0 Homelessness

== ENCOUNTER 2017-10-07 22:11 | Emergency (ER) | payer MEDICAID ==
[2017-10-07 22:11] VITALS: BMI 22.9
--- NOTE | 2017-10-07 23:28 | C.PDOC ---
History Of Present Illness Patient brought in via EMS for ETOH intoxication, patient is requesting a place to spend the night. Denies physical complaints at this time. Chief Complaint (Nursing): Substance Abuse History Per: Patient History/Exam Limitations: no limitations Onset/Duration Of Symptoms: Hrs Current Symptoms Are (Timing): Still Present Suicide/Self Injury Attempted (Context): None Modifying Factor(s): Alcohol Associated Symptoms: denies: Depression, Suicidal Thoughts, Suicidal Plan Involuntary Hold By: None Recent travel outside of the [place]: No Past Medical History Reviewed: Historical Data, Nursing Documentation, Vital Signs Vital Signs: Last Vital Signs Temp 98 F 10/08/17 04:12 Pulse 65 10/08/17 04:12 Resp 20 10/08/17 04:12 BP 136/70 10/08/17 04:12 Pulse Ox 96 10/08/17 05:12 - Medical History PMH: Anxiety, Depression, HTN, Seizures (ETOH related) - [facility] Procedures ALCOHOL DETOXIFICATION (07/07/15) DETOXIFICATION SERVICES FOR SUBSTANCE ABUSE TREATMENT (07/24/17) GROUP SYSTEMS PROGRAMMER ANALYST FOR SUBSTANCE ABUSE TREATMENT, PSYCHOEDUCATION (07/24/17) GROUP PSYCHOTHERAPY (07/24/17) INDIV PSYCHOTHERAPY FOR SUBSTANCE ABUSE TREATMENT, SUPPORT (07/24/17) INDIV PSYCHOTHERAPY FOR SUBSTANCE ABUSE, COGNITIV BEHAVIORAL (04/17/17) INDIV PSYCHOTHERAPY FOR SUBSTANCE ABUSE, PSYCHOEDUCATION (04/17/17) INDIVIDUAL PSYCHOTHERAPY, SUPPORTIVE (07/24/17) INJECT/INFUSE NEC (04/27/14) MEASUREMENT OF ARTERIAL PRESSURE, PERIPHERAL, PERC APPROACH (03/17/16) MEASUREMENT OF CARDIAC RHYTHM, PERCUTANEOUS APPROACH (03/17/16) MEDICATION MANAGEMENT (07/24/17) ULTRASONOGRAPHY OF RIGHT AND LEFT HEART, TRANSESOPHAGEAL (03/17/16) Family History: States: Unknown Family Hx - Social History Hx Tobacco Use: No Hx Alcohol Use: Yes Hx Substance Use: No - Immunization History Hx Tetanus Toxoid Vaccination: No Hx Influenza Vaccination: No (2017) Hx Pneumococcal Vaccination: No (unknown) Review Of Systems Constitutional: Negative for: Fever, Chills Gastrointestinal: Negative for: Nausea, Vomiting, Diarrhea Physical Exam - Physical Exam Appears: Non-toxic, No Acute Distress, Other (ETOH on breath) Skin: Normal Color, Warm, Dry Head: Atraumatic, Normacephalic Oral Mucosa: Moist Chest: Symmetrical Cardiovascular: Rhythm Regular Respiratory: Normal Breath Sounds, No Rales, No Rhonchi, No Wheezing Gastrointestinal/Abdominal: Soft, No Tenderness Neurological/Psych: Oriented x3, Normal Speech, Normal Cognition ED Course And Treatment O2 Sat by Pulse Oximetry: 96 (Room air) Pulse Ox Interpretation: Normal Disposition Counseled Patient/Family Regarding: Diagnosis - Disposition Referrals: [facility] [Outside] Disposition: HOME/ ROUTINE Disposition Time: 05:12 Condition: STABLE Instructions: Abuse of Alcohol (ED) Forms: [employer] [facility] (Divehi) - POA Present On Arrival: None - Clinical Impression Clinical Impression: Alcoholic intoxication - Scribe Statement The provider has reviewed the documentation as recorded by the Scribe Mike [place] All medical record entries made by the Scribe were at my direction and personally dictated by me. I have reviewed the chart and agree that the record accurately reflects my personal performance of the history, physical exam, medical decision making, and the department course for this patient. I have also personally directed, reviewed, and agree with the discharge instructions and disposition.
[2017-10-08 04:13] VITALS: BP 136/70; PULSE 65; RESP 20; TEMP 98
[2017-10-08 05:12] VITALS: O2SAT 96
== END 2017-10-08 05:13 | disposition home or self-care (01) ==
LOC: C.ER 22:11
DX: F10.129 Alcohol abuse with intoxication, unspecified (principal); Y90.9 Presence of alcohol in blood, level not specified

== ENCOUNTER 2017-10-17 16:04 | Emergency (ER) | payer MEDICAID ==
[2017-10-17 16:27] VITALS: BMI 23.1
[2017-10-17 16:31] VITALS: TEMP 97.4
--- NOTE | 2017-10-17 16:43 | C.PDOC ---
History Of Present Illness <Puneet Chavez - Last Filed: 10/17/17 17:31> <Padmini Mckeon - Last Filed: 10/18/17 05:26> 62 year old male is brought in by EMS found sleeping in the street. Patient is unresponsive, responds only to painful stimuli with no visible injuries. Unable to get further story due to his current state. (Puneet Chavez) History Per: EMS History/Exam Limitations: intoxication Onset/Duration Of Symptoms: Hrs Current Symptoms Are (Timing): Still Present Suicide/Self Injury Attempted (Context): None Modifying Factor(s): Alcohol Associated Symptoms: denies: Depression, Suicidal Thoughts, Suicidal Plan Recent travel outside of the [place]: No Additional History Per: EMS <Puneet Chavez - Last Filed: 10/17/17 17:31> <Padmini Mckeon - Last Filed: 10/18/17 05:26> Time Seen by Provider: 10/17/17 16:37 Chief Complaint (Nursing): Substance Abuse Past Medical History Reviewed: Historical Data, Nursing Documentation, Vital Signs - Medical History PMH: Anxiety, Depression, HTN, Seizures (ETOH related) Denies: HIV, Chronic Kidney Disease, Sexually Transmitted Disease Surgical History: No Surg Hx Family History: States: Unknown Family Hx - Social History Hx Tobacco Use: No Hx Alcohol Use: Yes Hx Substance Use: No - Immunization History Hx Tetanus Toxoid Vaccination: No Hx Influenza Vaccination: No (2017) Hx Pneumococcal Vaccination: No (unknown) <Puneet Chavez - Last Filed: 10/17/17 17:31> Vital Signs: Last Vital Signs Temp 97.4 F L 10/17/17 16:26 Pulse 68 10/18/17 01:06 Resp 18 10/18/17 01:06 BP 112/73 10/18/17 01:06 Pulse Ox 100 10/18/17 01:06 - [facility] Procedures ALCOHOL DETOXIFICATION (07/07/15) DETOXIFICATION SERVICES FOR SUBSTANCE ABUSE TREATMENT (07/24/17) GROUP SHIPPING AND RECEIVING OPERATOR FOR SUBSTANCE ABUSE TREATMENT, PSYCHOEDUCATION (07/24/17) GROUP PSYCHOTHERAPY (07/24/17) INDIV PSYCHOTHERAPY FOR SUBSTANCE ABUSE TREATMENT, SUPPORT (07/24/17) INDIV PSYCHOTHERAPY FOR SUBSTANCE ABUSE, COGNITIV BEHAVIORAL (04/17/17) INDIV PSYCHOTHERAPY FOR SUBSTANCE ABUSE, PSYCHOEDUCATION (04/17/17) INDIVIDUAL PSYCHOTHERAPY, SUPPORTIVE (07/24/17) INJECT/INFUSE NEC (04/27/14) MEASUREMENT OF ARTERIAL PRESSURE, PERIPHERAL, PERC APPROACH (03/17/16) MEASUREMENT OF CARDIAC RHYTHM, PERCUTANEOUS APPROACH (03/17/16) MEDICATION MANAGEMENT (07/24/17) ULTRASONOGRAPHY OF RIGHT AND LEFT HEART, TRANSESOPHAGEAL (03/17/16) Review Of Systems Review Of Systems: ROS cannot be obtained secondary to pt's inabilty to answer questions. <Puneet Chavez - Last Filed: 10/17/17 17:31> Physical Exam - Physical Exam Appears: Other (Intoxicated, unresponsive) Skin: Normal Color, Warm, Dry Head: Atraumatic, Normacephalic Nose: No Discharge, No Deformity Neck: Normal ROM, Supple Chest: Symmetrical Cardiovascular: Rhythm Regular, No Murmur Respiratory: No Rales, No Rhonchi, No Wheezing Gastrointestinal/Abdominal: Soft, No Tenderness, No Distention, No Guarding, No Rebound Extremity: Normal ROM, No Deformity, No Swelling Neurological/Psych: Slow To Respond With Command (With painful stimuli) <Puneet Chavez - Last Filed: 10/17/17 17:31> ED Course And Treatment O2 Sat by Pulse Oximetry: 97 (On RA) Pulse Ox Interpretation: Normal Progress Note: 17:31 - patient woke up, still intoxicated but improving answering some questions to the RN. <Puneet Chavez - Last Filed: 10/17/17 17:31> Medical Decision Making <Puneet Chavez - Last Filed: 10/17/17 17:31> <Padmini Mckeon - Last Filed: 10/18/17 05:26> Medical Decision Makin:31 - pt woke up. still intoxicated but is improving asnwering some questions to the RN. 19:41 - pt is responding to tactile stimuli, states he drank a lot today has no acute complaints and wants to "rest". (Padmini Mckeon) Disposition <Puneet Chavez - Last Filed: 10/17/17 17:31> - Disposition Disposition Time: 05:25 <Padmini Mckeon - Last Filed: 10/18/17 05:26> - Disposition Referrals: [facility] [Outside] Disposition: HOME/ ROUTINE Condition: GOOD Forms: [facility] (Amharic) - Clinical Impression Clinical Impression: Alcohol abuse - Scribe Statement The provider has reviewed the documentation as recorded by the Scribe <Puneet Chavez - Last Filed: 10/17/17 17:31> <Padmini Mckeon - Last Filed: 10/18/17 05:26> - Scribe Statement Osbaldo Cordero All medical record entries made by the Scribe were at my direction and personally dictated by me. I have reviewed the chart and agree that the record accurately reflects my personal performance of the history, physical exam, medical decision making, and the department course for this patient. I have also personally directed, reviewed, and agree with the discharge instructions and disposition. (Puneet Chavez)
[2017-10-18 01:09] VITALS: BP 112/73; O2SAT 100
[2017-10-18 06:29] VITALS: PULSE 69; RESP 20
== END 2017-10-18 05:45 | disposition home or self-care (01) ==
LOC: C.ER 16:04
DX: F10.10 Alcohol abuse, uncomplicated (principal); I10 Essential (primary) hypertension

== ENCOUNTER 2018-08-26 10:56 | Emergency (ER) | payer MEDICAID ==
[2018-08-26 10:57] VITALS: BMI 23.1
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
[2018-08-26 12:37] LABS: BASO # 0.1 K/uL (0.0-0.2); BASO % 1.3 % (0.0-2.0); EOS # 0.1 K/uL (0.0-0.7); EOS % 2.4 % (0.0-4.0); HEMOGLOBIN 12.6 g/dL (12.0-18.0); LYMPH # 1.7 K/uL (1.0-4.3); LYMPH % 35.9 % (20.0-40.0); MEAN CELL VOLUME 97.1 fL (80.0-94.0); MEAN CORPUSCULAR HEMOGLOBIN 33.1 pg (27.0-31.0); MEAN CORPUSCULAR HGB CONC 34.1 g/dL (33.0-37.0); MEAN PLATELET VOLUME 7.6 fL (7.2-11.7); MONO # 0.6 K/uL (0.0-0.8); MONO % 12.1 % (0.0-10.0); NEUT # 2.4 K/uL (1.8-7.0); NEUT % 48.3 % (50.0-75.0); NRBC % 0.1 % (0.0-2.0); RBC 3.81 Mil/uL (4.40-5.90); RED CELL DISTRIBUTION WIDTH 13.9 % (11.5-14.5); WHITE BLOOD COUNT 4.9 K/uL (4.8-10.8)
[2018-08-26 12:58] LABS: ALB/GLOB RATIO 1.2 (1.0-2.1); ALBUMIN 4.2 g/dL (3.5-5.0); ALT/SGPT 20 U/L (21-72); AST/SGOT 34 U/L (17-59); BLOOD UREA NITROGEN 23 mg/dL (9-20); CALCIUM 8.9 mg/dl (8.6-10.4); GFR NON-AFRICAN AMERICAN 52
[2018-08-26 13:45] VITALS: RESP 18
[2018-08-26 14:12] LABS: BARBITURATES, UR NEGATIVE (NEGATIVE); BENZODIAZEPINES, UR NEGATIVE (NEGATIVE); OPIATES, UR NEGATIVE (NEGATIVE); PHENCYCLIDINE, UR NEGATIVE (NEGATIVE)
[2018-08-26 16:17] VITALS: BP 156/86; PULSE 89; TEMP 98.4
[2018-09-01 17:22] VITALS: O2SAT 97
== END 2018-08-26 16:34 | disposition home or self-care (01) ==
LOC: C.ER 10:56
DX: F10.129 Alcohol abuse with intoxication, unspecified (principal); Y90.8 Blood alcohol level of 240 mg/100 ml or more